=== PATIENT | male | born 1955 | race Caucasian/White ===

== ENCOUNTER 2021-03-10 22:03 | Inpatient (IN) | payer OTHER ==
[2021-03-10] MEDS ORDERED: PIPERACILLIN-TAZOBACTAM 3.375 GM in SODIUM CHLORIDE 0.9% 100 ML IVPB STA (22:34)
[2021-03-10] MEDS ORDERED: ACETAMINOPHEN TAB 325 MG TAB PO STA (22:34)
--- NOTE | 2021-03-10 22:37 | ED ---
Altered Mental Status HPI - General Chief Complaint: Altered Mental Status Stated Complaint: Confused Time Seen by Provider: 03/10/21 22:20 Source: patient Mode of arrival: ambulatory Limitations: no limitations, altered mental status - History of Present Illness Initial Comments: This patient is a 65-year-old man who arrives to be evaluated for suspected delirium. Most of the history comes from the patient's son as the patient believes she is delirious. Over the past couple of days he has had a change in urination reportedly urinating more frequently and having loss of continence. There may also been some low-grade fevers earlier. Today, patient's son arrived home from work and found the patient naked in the kitchen urinating there.. MD Complaint: altered mental status -: days(s) Severity: severe Consistency of Symptoms: getting worse Context: recent fever Associated Symptoms: fever/chills, incontinence - Related Data Home Medications Medication Instructions Recorded Confirmed Atorvastatin Calcium [Lipitor] 20 mg PO DAILY 03/11/21 03/11/21 Escitalopram [Lexapro] 20 mg PO DAILY 03/11/21 03/11/21 Furosemide [Lasix] 20 mg PO DAILY 03/11/21 03/11/21 Insulin Glargine,Hum.rec.anlog 50 unit SQ HS 03/11/21 03/11/21 [Lantus Solostar Pen] Insulin Lispro [humaLOG Kwikpen] 20 unit SQ AC-TID 03/11/21 03/11/21 Tamsulosin HCl [Flomax] 0.8 mg PO DAILY 03/11/21 03/11/21 amLODIPine BESYLATE/BENAZEPRIL 1 cap PO DAILY 03/11/21 03/11/21 [Lotrel 10-40 MG] buPROPion HCL [Wellbutrin SR] 150 mg PO BID 03/11/21 03/11/21 metFORMIN HCL [Glucophage] 1,000 mg PO AC-BID 03/11/21 03/11/21 Previous Rx's Medication Instructions Recorded hydrALAZINE HCL [Apresoline] 25 mg PO BID #60 tab 03/14/21 Ciprofloxacin HCl 500 mg PO BID 7 Days #14 tab 03/19/21 Potassium Chloride [Klor-Con 20] 20 meq PO DAILY #30 tab 03/19/21 polyethylene glycoL 3350 [Miralax] 17 gm PO DAILY PRN #15 packet 03/19/21 Allergies Allergy/AdvReac Type Severity Reaction Status Date / Time No Known Allergies Allergy Verified 03/11/21 10:24 Review of Systems ROS Statement: Those systems with pertinent positive or pertinent negative responses have been documented in the HPI. ROS Other: All systems not noted in ROS Statement are negative. Limitations: ROS unobtainable due to patients medical condition Constitutional: Reports: fever. Denies: chills Respiratory: Reports: cough, dyspnea Cardiovascular: Denies: chest pain, syncope Gastrointestinal: Denies: abdominal pain, vomiting, diarrhea Genitourinary: Reports: other Musculoskeletal: Denies: back pain Neurological: Denies: headache Past Medical History Past Medical History: Diabetes Mellitus, Hypertension History of Any Multi-Drug Resistant Organisms: None Reported Additional Past Surgical History / Comment(s): hernia Past Psychological History: No Psychological Hx Reported Smoking Status: Current every day smoker Past Alcohol Use History: None Reported Past Drug Use History: None Reported General Exam Limitations: no limitations General appearance: alert, in no apparent distress Head exam: Present: atraumatic, normocephalic Eye exam: Present: normal appearance ENT exam: Present: mucous membranes dry Neck exam: Present: normal inspection, full ROM. Absent: tenderness, meningismus Respiratory exam: Present: rhonchi. Absent: respiratory distress, wheezes, rales, stridor Cardiovascular Exam: Present: normal rhythm, tachycardia, normal heart sounds. Absent: systolic murmur, diastolic murmur, rubs, gallop GI/Abdominal exam: Present: soft. Absent: distended, tenderness, guarding, rebound, rigid, mass Extremities exam: Present: normal inspection, normal capillary refill. Absent: pedal edema, calf tenderness Back exam: Present: normal inspection. Absent: CVA tenderness (R), CVA tenderness (L) Neurological exam: Present: alert Skin exam: Present: warm, dry, intact, normal color. Absent: rash Course Vital Signs 03/10/21 03/10/21 03/10/21 22:04 23:17 23:22 Temperature 101.0 F H Pulse Rate 122 H 111 H 112 H Pulse Rate [ Left] Respiratory 20 20 18 Rate Blood Pressure 163/95 163/93 163/93 Blood Pressure [Right Arm] O2 Sat by Pulse 93 L 92 L Oximetry 03/11/21 03/11/21 03/11/21 00:30 02:00 03:00 Temperature 100.7 F H 98.6 F Pulse Rate 108 H 112 H 109 H Pulse Rate [ Left] Respiratory 18 18 Rate Blood Pressure 131/77 138/75 Blood Pressure [Right Arm] O2 Sat by Pulse 93 L 91 L Oximetry 03/11/21 03/11/21 03/11/21 05:43 07:19 08:39 Temperature 98.7 F 99.5 F 98.9 F Pulse Rate 121 H 117 H 110 H Pulse Rate [ Left] Respiratory 20 24 24 Rate Blood Pressure 140/79 181/98 123/71 Blood Pressure [Right Arm] O2 Sat by Pulse 91 L 95 Oximetry 03/11/21 03/11/21 03/11/21 14:48 17:00 18:01 Temperature 98.4 F 101.4 F H Pulse Rate 104 H 104 H Pulse Rate [ Left] Respiratory 18 18 Rate Blood Pressure 123/71 144/94 Blood Pressure [Right Arm] O2 Sat by Pulse 92 L 94 L Oximetry 03/11/21 03/11/21 03/11/21 18:55 19:11 21:44 Temperature 99.3 F 98.3 F Pulse Rate 98 93 98 Pulse Rate [ Left] Respiratory 18 18 18 Rate Blood Pressure 129/77 141/85 Blood Pressure [Right Arm] O2 Sat by Pulse 95 93 L 93 L Oximetry 03/11/21 03/12/21 03/12/21 23:00 06:43 08:00 Temperature 98.8 F Pulse Rate 96 94 Pulse Rate [ 91 Left] Respiratory 18 18 16 Rate Blood Pressure 167/94 137/73 Blood Pressure 134/79 [Right Arm] O2 Sat by Pulse 95 92 L 93 L Oximetry 03/12/21 13:07 Temperature 98.0 F Pulse Rate Pulse Rate [ Left] Respiratory 16 Rate Blood Pressure Blood Pressure 147/77 [Right Arm] O2 Sat by Pulse 95 Oximetry Procedures - Sepsis Sepsis Focused Exam #1 Sepsis Focused Exam Complete: Yes Vital Signs & RN Notes Reviewed: Yes Capillary Refill: < 2 Seconds: Fingers Peripheral Pulses: Strong: Radial (R) Skin Color: Normal for Patient Respiratory Exam: normal lung sounds Cardiovascular Exam: regular rate, normal rhythm, normal heart sounds Medical Decision Making - Lab Data Result diagrams: 03/19/21 09:22 03/19/21 13:19 Lab Results 03/10/21 03/10/21 03/10/21 Range/Units 23:16 23:16 23:16 WBC 20.6 H (3.8-10.6) k/uL RBC 5.54 (4.30-5.90) m/uL Hgb 16.2 (13.0-17.5) gm/dL Hct 48.2 (39.0-53.0) % MCV 87.0 (80.0-100.0) fL MCH 29.3 (25.0-35.0) pg MCHC 33.7 (31.0-37.0) g/dL RDW 13.7 (11.5-15.5) % Plt Count 160 (150-450) k/uL MPV 8.3 Neutrophils % 89 % Lymphocytes % 3 % Monocytes % 6 % Eosinophils % 0 % Basophils % 0 % Neutrophils # 18.4 H (1.3-7.7) k/uL Lymphocytes # 0.7 L (1.0-4.8) k/uL Monocytes # 1.3 H (0-1.0) k/uL Eosinophils # 0.1 (0-0.7) k/uL Basophils # 0.1 (0-0.2) k/uL PT 11.5 (9.0-12.0) sec INR 1.1 (<1.2) APTT 25.8 (22.0-30.0) sec Sodium 134 L (137-145) mmol/L Potassium 3.6 (3.5-5.1) mmol/L Chloride 99 (98-107) mmol/L Carbon Dioxide 20 L (22-30) mmol/L Anion Gap 15 mmol/L BUN 14 (9-20) mg/dL Creatinine 0.92 (0.66-1.25) mg/dL Est GFR (CKD-EPI)AfAm >90 (>60 ml/min/1.73 sqM) Est GFR (CKD-EPI)NonAf 88 (>60 ml/min/1.73 sqM) Glucose 295 H (74-99) mg/dL Lactic Ac Sepsis Rflx Plasma Lactic Acid [place] (0.7-2.0) mmol/L Calcium 9.8 (8.4-10.2) mg/dL Total Bilirubin 1.4 H (0.2-1.3) mg/dL AST 22 (17-59) U/L ALT 19 (4-49) U/L Alkaline Phosphatase 81 (38-126) U/L Troponin I (0.000-0.034) ng/mL Total Protein 6.9 (6.3-8.2) g/dL Albumin 4.2 (3.5-5.0) g/dL Urine Color Urine Appearance (Clear) Urine pH (5.0-8.0) Ur Specific [place] (1.001-1.035) Urine Protein (Negative) Urine Glucose (UA) (Negative) Urine Ketones (Negative) Urine Blood (Negative) Urine Nitrite (Negative) Urine Bilirubin (Negative) Urine Urobilinogen (<2.0) mg/dL Ur Leukocyte Esterase (Negative) Urine RBC (0-5) /hpf Urine WBC (0-5) /hpf Amorphous Sediment (None) /hpf Urine Bacteria (None) /hpf Urine Mucus (None) /hpf 03/10/21 03/10/21 03/11/21 Range/Units 23:16 23:18 00:00 WBC (3.8-10.6) k/uL RBC (4.30-5.90) m/uL Hgb (13.0-17.5) gm/dL Hct (39.0-53.0) % MCV (80.0-100.0) fL MCH (25.0-35.0) pg MCHC (31.0-37.0) g/dL RDW (11.5-15.5) % Plt Count (150-450) k/uL MPV Neutrophils % % Lymphocytes % % Monocytes % % Eosinophils % % Basophils % % Neutrophils # (1.3-7.7) k/uL Lymphocytes # (1.0-4.8) k/uL Monocytes # (0-1.0) k/uL Eosinophils # (0-0.7) k/uL Basophils # (0-0.2) k/uL PT (9.0-12.0) sec INR (<1.2) APTT (22.0-30.0) sec Sodium (137-145) mmol/L Potassium (3.5-5.1) mmol/L Chloride (98-107) mmol/L Carbon Dioxide (22-30) mmol/L Anion Gap mmol/L BUN (9-20) mg/dL Creatinine (0.66-1.25) mg/dL Est GFR (CKD-EPI)AfAm (>60 ml/min/1.73 sqM) Est GFR (CKD-EPI)NonAf (>60 ml/min/1.73 sqM) Glucose (74-99) mg/dL Lactic Ac Sepsis Rflx Y Plasma Lactic Acid [place] 2.6 H* (0.7-2.0) mmol/L Calcium (8.4-10.2) mg/dL Total Bilirubin (0.2-1.3) mg/dL AST (17-59) U/L ALT (4-49) U/L Alkaline Phosphatase (38-126) U/L Troponin I <0.012 (0.000-0.034) ng/mL Total Protein (6.3-8.2) g/dL Albumin (3.5-5.0) g/dL Urine Color Urine Appearance (Clear) Urine pH (5.0-8.0) Ur Specific [place] (1.001-1.035) Urine Protein (Negative) Urine Glucose (UA) (Negative) Urine Ketones (Negative) Urine Blood (Negative) Urine Nitrite (Negative) Urine Bilirubin (Negative) Urine Urobilinogen (<2.0) mg/dL Ur Leukocyte Esterase (Negative) Urine RBC (0-5) /hpf Urine WBC (0-5) /hpf Amorphous Sediment (None) /hpf Urine Bacteria (None) /hpf Urine Mucus (None) /hpf 03/11/21 03/11/21 03/11/21 Range/Units 00:58 02:14 02:14 WBC (3.8-10.6) k/uL RBC (4.30-5.90) m/uL Hgb (13.0-17.5) gm/dL Hct (39.0-53.0) % MCV (80.0-100.0) fL MCH (25.0-35.0) pg MCHC (31.0-37.0) g/dL RDW (11.5-15.5) % Plt Count (150-450) k/uL MPV Neutrophils % % Lymphocytes % % Monocytes % % Eosinophils % % Basophils % % Neutrophils # (1.3-7.7) k/uL Lymphocytes # (1.0-4.8) k/uL Monocytes # (0-1.0) k/uL Eosinophils # (0-0.7) k/uL Basophils # (0-0.2) k/uL PT (9.0-12.0) sec INR (<1.2) APTT (22.0-30.0) sec Sodium (137-145) mmol/L Potassium (3.5-5.1) mmol/L Chloride (98-107) mmol/L Carbon Dioxide (22-30) mmol/L Anion Gap mmol/L BUN (9-20) mg/dL Creatinine (0.66-1.25) mg/dL Est GFR (CKD-EPI)AfAm (>60 ml/min/1.73 sqM) Est GFR (CKD-EPI)NonAf (>60 ml/min/1.73 sqM) Glucose (74-99) mg/dL Lactic Ac Sepsis Rflx Plasma Lactic Acid [place] 1.7 (0.7-2.0) mmol/L Calcium (8.4-10.2) mg/dL Total Bilirubin (0.2-1.3) mg/dL AST (17-59) U/L ALT (4-49) U/L Alkaline Phosphatase (38-126) U/L Troponin I <0.012 (0.000-0.034) ng/mL Total Protein (6.3-8.2) g/dL Albumin (3.5-5.0) g/dL Urine Color Yellow Urine Appearance Clear (Clear) Urine pH 5.5 (5.0-8.0) Ur Specific [place] 1.037 H (1.001-1.035) Urine Protein 2+ H (Negative) Urine Glucose (UA) 4+ H (Negative) Urine Ketones 2+ H (Negative) Urine Blood Moderate H (Negative) Urine Nitrite Positive (Negative) Urine Bilirubin Negative (Negative) Urine Urobilinogen <2.0 (<2.0) mg/dL Ur Leukocyte Esterase Trace H (Negative) Urine RBC 3 (0-5) /hpf Urine WBC 14 H (0-5) /hpf Amorphous Sediment Rare H (None) /hpf Urine Bacteria Rare H (None) /hpf Urine Mucus Rare H (None) /hpf Disposition Clinical Impression: UTI (urinary tract infection), Delirium due to another medical condition Disposition: ADMITTED IP TO THIS HOSP Condition: Serious Is patient prescribed a controlled substance at d/c from ED?: No
[2021-03-10] MEDS: SODIUM CHLORIDE 0.9% 1,000 ML IV SCH (23:13)
[2021-03-10] MEDS: SODIUM CHLORIDE 0.9% 500 ML 500 ML IV SCH ×2 (23:13→23:14)
[2021-03-10 23:40] LABS: Basophils # (A) 0.1 k/uL (0-0.2); Basophils % (A) 0 %; Eosinophils # (A) 0.1 k/uL (0-0.7); Eosinophils % (A) 0 %; HCT 48.2 % (39.0-53.0); HGB 16.2 gm/dL (13.0-17.5); Lymphocytes # (A) 0.7 k/uL (1.0-4.8); Lymphocytes % (A) 3 %; MCH 29.3 pg (25.0-35.0); MCHC 33.7 g/dL (31.0-37.0); Mean Platelet Volume 8.3; Monocytes # (A) 1.3 k/uL (0-1.0); Monocytes % (A) 6 %; Neutrophils # (A) 18.4 k/uL (1.3-7.7); Neutrophils % (A) 89 %; Platelet Count 160 k/uL (150-450); RBC 5.54 m/uL (4.30-5.90); RDW 13.7 % (11.5-15.5); WBC 20.6 k/uL (3.8-10.6)
[2021-03-10 23:49] LABS: Chloride 99 mmol/L (98-107)
[2021-03-10 23:52] LABS: ALT 19 U/L (4-49); AST 22 U/L (17-59); African American GFR (CKD) >90 (>60 ml/min/1.73 sqM); Albumin 4.2 g/dL (3.5-5.0); Alkaline Phosphatase 81 U/L (38-126); Anion Gap 15 mmol/L; Blood Urea Nitrogen 14 mg/dL (9-20); Calcium 9.8 mg/dL (8.4-10.2); Carbon Dioxide 20 mmol/L (22-30); Glucose 295 mg/dL (74-99); Non-African American GFR(CKD) 88 (>60 ml/min/1.73 sqM); Potassium 3.6 mmol/L (3.5-5.1); Sodium 134 mmol/L (137-145); Total Bilirubin 1.4 mg/dL (0.2-1.3); Total Protein 6.9 g/dL (6.3-8.2)
[2021-03-11 00:09] LABS: INR 1.1 (<1.2); Partial Thromboplastin Time 25.8 sec (22.0-30.0); Prothrombin Time 11.5 sec (9.0-12.0)
--- NOTE | 2021-03-11 00:26 | CT ---
EXAMINATION TYPE: CT brain wo con DATE OF EXAM: 03/10/2021 COMPARISON: None HISTORY: AMS CT DLP: 1221.4 mGycm Automated exposure control for dose reduction was used. There is mild cerebral atrophy. There is no mass effect nor midline shift. There is no sign of intrac ranial hemorrhage. Calvarium is intact. There is some hypodensity in the periventricular white matter . IMPRESSION: Cerebral atrophy. Chronic white matter changes. No acute abnormality.
--- NOTE | 2021-03-11 00:30 | XR ---
EXAMINATION TYPE: XR chest 1V portable DATE OF EXAM: 03/10/2021 COMPARISON: NONE HISTORY: Altered mental status. Fever. TECHNIQUE: Single view FINDINGS: Heart and mediastinum are normal. Lungs are clear. Diaphragm is normal. Bony thorax appears normal. There are chest leads. IMPRESSION: Normal chest.
[2021-03-11 02:09] LABS: Amorphous Sediment,Urine Rare /hpf; Appearance,Urine Clear (Clear); Bacteria,Urine Rare /hpf; Bilirubin,Urine Negative (Negative); Blood,Urine Moderate (Negative); Color,Urine Yellow; Glucose,Urine (UA) 4+ (Negative); Leukocyte Esterase,Urine Trace (Negative); Mucus,Urine Rare /hpf; Nitrite,Urine Positive (Negative); PH, Urine 5.5 (5.0-8.0); Protein,Urine 2+ (Negative); RBC,Urine 3 /hpf (0-5); Specific Gravity,Urine 1.037 (1.001-1.035); Urobilinogen,Urine <2.0 mg/dL (<2.0); WBC,Urine 14 /hpf (0-5)
[2021-03-11 02:22] LABS: Ketones,Urine 2+ (Negative)
[2021-03-11 07:25] LABS: Glucose,Whole Blood 223 mg/dL (75-99)
[2021-03-11] MEDS: FAMOTIDINE 20 MG/2 ML VIAL IV SCH ×2 (07:55→21:54)
[2021-03-11] MEDS: ACETAMINOPHEN TAB 325 MG TAB PO PRN ×2 (07:55→17:53)
[2021-03-11] MEDS: PIPERACILLIN-TAZOBACTAM 3.375 GM in SODIUM CHLORIDE 0.9% 100 ML IVPB SCH ×3 (07:55→21:56)
--- NOTE | 2021-03-11 17:42 | P.HPIM ---
History of Present Illness H&P Date: 03/11/21 Chief Complaint: Altered mental status 65-year-old man, history of diabetes mellitus/hypertension, who arrives to be evaluated for suspected delirium. Most of the history comes from the patient's son as the patient believes he is delirious. Over the past couple of days he has had a change in urination reportedly urinating more frequently and having loss of continence. There may also been some low-grade fevers earlier. Today, patient's son arrived home from work and found the patient naked in the kitchen urinating there.. Workup in ED with a UA reveals positive nitrates, leukocyte esterase with WBCs and bacteria, lactic acid of 2.6, total bilirubin of 1.4, glucose 95, BUN/creatinine of 14/0.9; WBC is elevated at 20.6, hemoglobin 16.2 and hematocrit 48.2 with platelet count of 160 CT of the brain revealed cerebral atrophy with chronic white matter changes, no acute abnormality; chest x-ray reveals no acute process Review of Systems REVIEW OF SYSTEMS: CONSTITUTIONAL: No fever, no malaise, no fatigue. HEENT: No recent visual problems or hearing problems. Denied any sore throat. CARDIOVASCULAR: No chest pain, orthopnea, PND, no palpitations, no syncope. PULMONARY: No shortness of breath, no cough, no hemoptysis. GASTROINTESTINAL: No diarrhea, no nausea, no vomiting, no abdominal pain. NEUROLOGICAL: No headaches, no weakness, no numbness. HEMATOLOGICAL: Denies any bleeding or petechiae. GENITOURINARY: Denies any burning micturition, frequency, or urgency. MUSCULOSKELETAL/RHEUMATOLOGICAL: Denies any joint pain, swelling, or any muscle pain. ENDOCRINE: Denies any polyuria or polydipsia. The rest of the 14-point review of systems is negative. Past Medical History Past Medical History: Diabetes Mellitus, Hypertension History of Any Multi-Drug Resistant Organisms: None Reported Additional Past Surgical History / Comment(s): hernia Past Psychological History: No Psychological Hx Reported Smoking Status: Current every day smoker Past Alcohol Use History: None Reported Past Drug Use History: None Reported Medications and Allergies Home Medications Medication Instructions Recorded Confirmed Type Atorvastatin Calcium [Lipitor] 20 mg PO DAILY 03/11/21 03/11/21 History Escitalopram [Lexapro] 20 mg PO DAILY 03/11/21 03/11/21 History Furosemide [Lasix] 20 mg PO DAILY 03/11/21 03/11/21 History Insulin Glargine,Hum.rec.anlog 50 unit SQ HS 03/11/21 03/11/21 History [Lantus Solostar Pen] Insulin Lispro [humaLOG Kwikpen] 20 unit SQ AC-TID 03/11/21 03/11/21 History Tamsulosin HCl [Flomax] 0.8 mg PO DAILY 03/11/21 03/11/21 History amLODIPine BESYLATE/BENAZEPRIL 1 cap PO DAILY 03/11/21 03/11/21 History [Lotrel 10-40 MG] buPROPion HCL [Wellbutrin SR] 150 mg PO BID 03/11/21 03/11/21 History hydroCHLOROthiazide [Hydrodiuril] 25 mg PO DAILY 03/11/21 03/11/21 History metFORMIN HCL [Glucophage] 1,000 mg PO AC-BID 03/11/21 03/11/21 History Allergies Allergy/AdvReac Type Severity Reaction Status Date / Time No Known Allergies Allergy Verified 03/11/21 10:24 Physical Exam Vitals: Vital Signs Temp Pulse Resp BP Pulse Ox 03/11/21 08:39 98.9 F 110 H 24 123/71 95 03/11/21 07:19 99.5 F 117 H 24 181/98 91 L 03/11/21 05:43 98.7 F 121 H 20 140/79 03/11/21 03:00 98.6 F 109 H 18 138/75 91 L 03/11/21 02:00 112 H 18 03/11/21 00:30 100.7 F H 108 H 131/77 93 L 03/10/21 23:22 112 H 18 163/93 92 L 03/10/21 23:17 111 H 20 163/93 03/10/21 22:04 101.0 F H 122 H 20 163/95 93 L Intake and Output 03/10/21 03/11/21 03/11/21 22:59 06:59 14:59 Output Total 700 Balance -700 Output: Urine 700 Straight 700 Other: Weight 140.614 kg PHYSICAL EXAMINATION: GENERAL: The patient is alert and oriented x3, not in any acute distress. Well developed, well nourished. HEENT: Pupils are round and equally reacting to light. EOMI. No scleral icterus. No conjunctival pallor. Normocephalic, atraumatic. No pharyngeal erythema. No thyromegaly. CARDIOVASCULAR: S1 and S2 present. No murmurs, rubs, or gallops. PULMONARY: Chest is clear to auscultation, no wheezing or crackles. ABDOMEN: Soft, nontender, nondistended, normoactive bowel sounds. No palpable organomegaly. MUSCULOSKELETAL: No joint swelling or deformity. EXTREMITIES: No cyanosis, clubbing, or pedal edema. NEUROLOGICAL: Gross neurological examination did not reveal any focal deficits. SKIN: No rashes. Results CBC & Chem 7: 03/10/21 23:16 03/10/21 23:16 Labs: Abnormal Lab Results - Last 24 Hours (Table) 03/10/21 03/10/21 03/10/21 Range/Units 23:16 23:16 23:16 WBC 20.6 H (3.8-10.6) k/uL Neutrophils # 18.4 H (1.3-7.7) k/uL Lymphocytes # 0.7 L (1.0-4.8) k/uL Monocytes # 1.3 H (0-1.0) k/uL Sodium 134 L (137-145) mmol/L Carbon Dioxide 20 L (22-30) mmol/L Glucose 295 H (74-99) mg/dL POC Glucose (mg/dL) (75-99) mg/dL Plasma Lactic Acid [place] 2.6 H* (0.7-2.0) mmol/L Total Bilirubin 1.4 H (0.2-1.3) mg/dL Ur Specific [place] (1.001-1.035) Urine Protein (Negative) Urine Glucose (UA) (Negative) Urine Ketones (Negative) Urine Blood (Negative) Ur Leukocyte Esterase (Negative) Urine WBC (0-5) /hpf Amorphous Sediment (None) /hpf Urine Bacteria (None) /hpf Urine Mucus (None) /hpf 03/11/21 03/11/21 Range/Units 00:58 07:23 WBC (3.8-10.6) k/uL Neutrophils # (1.3-7.7) k/uL Lymphocytes # (1.0-4.8) k/uL Monocytes # (0-1.0) k/uL Sodium (137-145) mmol/L Carbon Dioxide (22-30) mmol/L Glucose (74-99) mg/dL POC Glucose (mg/dL) 223 H (75-99) mg/dL Plasma Lactic Acid [place] (0.7-2.0) mmol/L Total Bilirubin (0.2-1.3) mg/dL Ur Specific [place] 1.037 H (1.001-1.035) Urine Protein 2+ H (Negative) Urine Glucose (UA) 4+ H (Negative) Urine Ketones 2+ H (Negative) Urine Blood Moderate H (Negative) Ur Leukocyte Esterase Trace H (Negative) Urine WBC 14 H (0-5) /hpf Amorphous Sediment Rare H (None) /hpf Urine Bacteria Rare H (None) /hpf Urine Mucus Rare H (None) /hpf Assessment and Plan Assessment: 1. Leukocytosis/sepsis - As indicated by elevated WBC, lactic acid level, tachycardia and tachypnea, altered mental status - Patient has been placed on IV Zosyn 3.375 g IV every 8 hours; blood cultures and urine cultures obtained and pending - We will monitor CBC, CRP and pro-calcitonin; consult ID for further recommendations 2. Altered mental status/toxic metabolic encephalopathy - Lactic acidosis/sepsis/UTI; patient has been placed on IV fluids we will trend and monitor lactic acid levels; Continue with further sepsis workup if lactic acid levels continue to trend up; Consult ID if no improvement with current treatment 3. Hypertension; continue home dose of Lotrel then40 mg daily, Hydrea Diuril 25 mg daily, Lasix 20 mg daily 4. Diabetes mellitus type 1; continue with Lantus 50 units subcu daily at bedtime, NovoLog 20 units every before meals 3 times a day; hold off of metformin while inpatient 5. Hyperlipidemia; Lipitor 20 mg by mouth daily at bedtime 6. BPH; Flomax 0.8 mg daily 7. Depression; continue with Wellbutrin and Lexapro DVT prophylaxis; SCDs/subcu heparin CODE STATUS; full code
[2021-03-11] MEDS: SODIUM CHLORIDE 0.9% 1,000 ML IV SCH ×3 (19:12→21:57)
[2021-03-11 21:55] LABS: Glucose,Whole Blood 270 mg/dL (75-99)
[2021-03-11] MEDS: INSULIN DETEMIR (LEVEMIR) 100 UNIT/ML SYR SQ SCH (21:57)
[2021-03-11] MEDS: buPROPion SR 150 MG TABLET.ER PO SCH (21:59)
[2021-03-12 04:53] LABS: Basophils % (A) 0 %; Eosinophils % (A) 0 %; HCT 45.4 % (39.0-53.0); Lymphocytes # (A) 0.8 k/uL (1.0-4.8); Lymphocytes % (A) 6 %; MCH 29.2 pg (25.0-35.0); MCHC 33.1 g/dL (31.0-37.0); MCV 88.1 fL (80.0-100.0); Mean Platelet Volume 8.7; Monocytes # (A) 0.9 k/uL (0-1.0); Monocytes % (A) 7 %; Neutrophils # (A) 10.9 k/uL (1.3-7.7); Neutrophils % (A) 85 %; Platelet Count 130 k/uL (150-450); RBC 5.15 m/uL (4.30-5.90); RDW 13.8 % (11.5-15.5); WBC 12.8 k/uL (3.8-10.6)
[2021-03-12] MEDS: SODIUM CHLORIDE 0.9% 1,000 ML IV SCH ×3 (08:05→23:31)
[2021-03-12 08:16] LABS: Glucose,Whole Blood 172 mg/dL (75-99)
[2021-03-12] MEDS: INSULIN ASPART (NovoLOG) 100 UNIT/ML VIAL SQ SCH ×3 (08:34→18:45)
[2021-03-12] MEDS: PIPERACILLIN-TAZOBACTAM 3.375 GM in SODIUM CHLORIDE 0.9% 100 ML IVPB SCH ×2 (08:34→17:34)
[2021-03-12] MEDS: FUROSEMIDE 20 MG TAB PO SCH (08:35)
[2021-03-12] MEDS: TAMSULOSIN 0.4 MG CAP.ER.24H PO SCH (08:35)
[2021-03-12] MEDS: ESCITALOPRAM 20 MG TAB PO SCH (08:35)
[2021-03-12] MEDS: amLODIPine 10 MG TAB PO SCH (08:35)
[2021-03-12] MEDS: lisinopriL 20 MG TAB PO SCH (08:35)
[2021-03-12] MEDS: ATORVASTATIN 20 MG TAB PO SCH (08:35)
[2021-03-12] MEDS: hydroCHLOROthiazide 25 MG TAB PO SCH (08:36)
[2021-03-12] MEDS: FAMOTIDINE 20 MG/2 ML VIAL IV SCH (08:36)
[2021-03-12 09:40] LABS: African American GFR (CKD) 109.4 (60.0-200.0); Anion Gap 15.4 mmol/L (4.00-12.00); BUN/Creat Ratio 17.75 Ratio (12.00-20.00); Blood Urea Nitrogen 14.2 mg/dL (9.0-27.0); Calcium 8.8 mg/dL (8.7-10.3); Carbon Dioxide 20.6 mmol/L (21.6-31.8); Non-African American GFR(CKD) 94.4 (60.0-200.0); Potassium 3.4 mmol/L (3.5-5.5)
[2021-03-12] MEDS: buPROPion SR 150 MG TABLET.ER PO SCH ×2 (10:40→20:58)
[2021-03-12 12:14] LABS: Glucose,Whole Blood 146 mg/dL (75-99)
[2021-03-12 14:47] LABS: C Reactive Protein 24.3 mg/dL (0.00-0.80)
--- NOTE | 2021-03-12 17:13 | P.PN ---
Subjective Progress Note Date: 03/12/21 Principal diagnosis: Leukocytosis/sepsis Altered mental status/toxic metabolic encephalopathy 65-year-old man, history of diabetes mellitus/hypertension, who arrives to be evaluated for suspected delirium. Most of the history comes from the patient's son as the patient believes he is delirious. Over the past couple of days he has had a change in urination reportedly urinating more frequently and having loss of continence. There may also been some low-grade fevers earlier. Today, patient's son arrived home from work and found the patient naked in the kitchen urinating there.. Workup in ED with a UA reveals positive nitrates, leukocyte esterase with WBCs and bacteria, lactic acid of 2.6, total bilirubin of 1.4, glucose 95, BUN/creatinine of 14/0.9; WBC is elevated at 20.6, hemoglobin 16.2 and hematocrit 48.2 with platelet count of 160 CT of the brain revealed cerebral atrophy with chronic white matter changes, no acute abnormality; chest x-ray reveals no acute process Objective - Vital Signs Vital signs: Vital Signs Temp 98.0 F 03/12/21 13:07 Pulse 91 03/12/21 08:00 Resp 16 03/12/21 13:07 BP 147/77 03/12/21 13:07 Pulse Ox 95 03/12/21 13:07 - Exam GENERAL: The patient is alert and oriented x3, not in any acute distress. Well developed, well nourished. HEENT: Pupils are round and equally reacting to light. EOMI. No scleral icterus. No conjunctival pallor. Normocephalic, atraumatic. No pharyngeal erythema. No thyromegaly. CARDIOVASCULAR: S1 and S2 present. No murmurs, rubs, or gallops. PULMONARY: Chest is clear to auscultation, no wheezing or crackles. ABDOMEN: Soft, nontender, nondistended, normoactive bowel sounds. No palpable organomegaly. MUSCULOSKELETAL: No joint swelling or deformity. EXTREMITIES: No cyanosis, clubbing, or pedal edema. NEUROLOGICAL: Gross neurological examination did not reveal any focal deficits. SKIN: No rashes. - Labs CBC & Chem 7: 03/12/21 04:23 03/12/21 04:23 Labs: Abnormal Lab Results - Last 24 Hours (Table) 03/11/21 03/12/2121 Range/Units 21:54 04:23 04:23 WBC 12.8 H (3.8-10.6) k/uL Plt Count 130 L (150-450) k/uL Neutrophils # 10.9 H (1.3-7.7) k/uL Lymphocytes # 0.8 L (1.0-4.8) k/uL Potassium (3.5-5.5) mmol/L Carbon Dioxide (21.6-31.8) mmol/L Anion Gap (4.00-12.00) mmol/L Glucose (70-110) mg/dL POC Glucose (mg/dL) 270 H (75-99) mg/dL Procalcitonin 0.51 H (0.02-0.09) ng/mL 03/12/21 03/12/21 03/12/21 Range/Units 04:23 08:14 12:13 WBC (3.8-10.6) k/uL Plt Count (150-450) k/uL Neutrophils # (1.3-7.7) k/uL Lymphocytes # (1.0-4.8) k/uL Potassium 3.4 L (3.5-5.5) mmol/L Carbon Dioxide 20.6 L (21.6-31.8) mmol/L Anion Gap 15.40 H (4.00-12.00) mmol/L Glucose 165 H (70-110) mg/dL POC Glucose (mg/dL) 172 H 146 H (75-99) mg/dL Procalcitonin (0.02-0.09) ng/mL Microbiology - Last 24 Hours (Table) 03/10/21 22:50 Blood Culture - Preliminary Blood No Growth after 24 hours 03/10/21 23:10 Blood Culture - Preliminary Blood No Growth after 24 hours 03/11/21 00:58 Urine Culture - Preliminary Urine,Voided Assessment and Plan Assessment: 1. Leukocytosis/sepsis - As indicated by elevated WBC, lactic acid level, tachycardia and tachypnea, altered mental status - Patient has been placed on IV Zosyn 3.375 g IV every 8 hours; blood cultures and urine cultures obtained and pending - We will monitor CBC, CRP and pro-calcitonin; consult ID for further recommendations 2. Altered mental status/toxic metabolic encephalopathy - Lactic acidosis/sepsis/UTI; patient has been placed on IV fluids we will trend and monitor lactic acid levels; Continue with further sepsis workup if lactic acid levels continue to trend up; Consult ID if no improvement with current treatment 3. Hypertension; continue home dose of Lotrel then40 mg daily, Hydrea Diuril 25 mg daily, Lasix 20 mg daily 4. Diabetes mellitus type 1; continue with Lantus 50 units subcu daily at bedtime, NovoLog 20 units every before meals 3 times a day; hold off of metformin while inpatient 5. Hyperlipidemia; Lipitor 20 mg by mouth daily at bedtime 6. BPH; Flomax 0.8 mg daily 7. Depression; continue with Wellbutrin and Lexapro DVT prophylaxis; SCDs/subcu heparin CODE STATUS; full code
[2021-03-12 20:48] LABS: Glucose,Whole Blood 257 mg/dL (75-99)
[2021-03-12] MEDS: ACETAMINOPHEN TAB 325 MG TAB PO PRN (20:57)
[2021-03-12] MEDS: INSULIN DETEMIR (LEVEMIR) 100 UNIT/ML SYR SQ SCH (20:58)
[2021-03-12] MEDS: FAMOTIDINE 20 MG TAB PO SCH (20:58)
[2021-03-13] MEDS: PIPERACILLIN-TAZOBACTAM 3.375 GM in SODIUM CHLORIDE 0.9% 100 ML IVPB SCH ×3 (01:08→15:20)
[2021-03-13 05:06] LABS: Basophils % (A) 0 %; Eosinophils # (A) 0.1 k/uL (0-0.7); Eosinophils % (A) 1 %; HCT 42.1 % (39.0-53.0); Lymphocytes # (A) 0.9 k/uL (1.0-4.8); Lymphocytes % (A) 10 %; MCH 29.2 pg (25.0-35.0); MCHC 33.3 g/dL (31.0-37.0); MCV 87.7 fL (80.0-100.0); Mean Platelet Volume 8.5; Monocytes # (A) 0.9 k/uL (0-1.0); Monocytes % (A) 9 %; Neutrophils # (A) 7.2 k/uL (1.3-7.7); Neutrophils % (A) 76 %; Platelet Count 163 k/uL (150-450); RDW 13.8 % (11.5-15.5); WBC 9.5 k/uL (3.8-10.6)
[2021-03-13 05:35] LABS: African American GFR (CKD) >90 (>60 ml/min/1.73 sqM); Anion Gap 8 mmol/L; Blood Urea Nitrogen 16 mg/dL (9-20); Calcium 8.8 mg/dL (8.4-10.2); Carbon Dioxide 24 mmol/L (22-30); Chloride 105 mmol/L (98-107); Glucose 149 mg/dL (74-99); Non-African American GFR(CKD) >90 (>60 ml/min/1.73 sqM); Potassium 3.2 mmol/L (3.5-5.1); Sodium 137 mmol/L (137-145)
[2021-03-13 06:10] LABS: C Reactive Protein 16.4 mg/dL (<1.0)
[2021-03-13] MEDS: SODIUM CHLORIDE 0.9% 1,000 ML IV SCH ×3 (06:10→20:38)
[2021-03-13 07:14] LABS: Glucose,Whole Blood 135 mg/dL (75-99)
[2021-03-13] MEDS: INSULIN ASPART (NovoLOG) 100 UNIT/ML VIAL SQ SCH ×3 (08:20→17:01)
[2021-03-13] MEDS: amLODIPine 10 MG TAB PO SCH (08:20)
[2021-03-13] MEDS: buPROPion SR 150 MG TABLET.ER PO SCH ×2 (08:21→21:10)
[2021-03-13] MEDS: ATORVASTATIN 20 MG TAB PO SCH (08:21)
[2021-03-13] MEDS: TAMSULOSIN 0.4 MG CAP.ER.24H PO SCH (08:21)
[2021-03-13] MEDS: FAMOTIDINE 20 MG TAB PO SCH ×2 (08:21→21:10)
[2021-03-13] MEDS: FUROSEMIDE 20 MG TAB PO SCH (08:21)
[2021-03-13] MEDS: ESCITALOPRAM 20 MG TAB PO SCH (08:21)
[2021-03-13] MEDS: lisinopriL 20 MG TAB PO SCH (08:21)
[2021-03-13] MEDS: hydroCHLOROthiazide 25 MG TAB PO SCH (08:21)
[2021-03-13 11:59] LABS: Glucose,Whole Blood 89 mg/dL (75-99)
--- NOTE | 2021-03-13 16:37 | P.PN ---
Subjective Progress Note Date: 03/13/21 Principal diagnosis: Leukocytosis/sepsis Altered mental status/toxic metabolic encephalopathy 65-year-old man, history of diabetes mellitus/hypertension, who arrives to be evaluated for suspected delirium. Most of the history comes from the patient's son as the patient believes he is delirious. Over the past couple of days he has had a change in urination reportedly urinating more frequently and having loss of continence. There may also been some low-grade fevers earlier. Today, patient's son arrived home from work and found the patient naked in the kitchen urinating there.. Workup in ED with a UA reveals positive nitrates, leukocyte esterase with WBCs and bacteria, lactic acid of 2.6, total bilirubin of 1.4, glucose 95, BUN/creatinine of 14/0.9; WBC is elevated at 20.6, hemoglobin 16.2 and hematocrit 48.2 with platelet count of 160 CT of the brain revealed cerebral atrophy with chronic white matter changes, no acute abnormality; chest x-ray reveals no acute process 03/13/2021 Patient is seen and evaluated in room at bedside; resting in bed and somewhat sleepy With O2 saturation 92% on room air Lab review shows WBC 9.5 which has trended down to 20.6 upon admission, hematocrit of 42.1, sodium 137,, potassium 3.2 Urine culture reveals gram-negative bacilli and final culture and sensitivity report is still pending; we will continue with current antibiotic therapy and adjust antibiotics once final culture and sensitivity report is available Objective - Vital Signs Vital signs: Vital Signs Temp 97.9 F 03/13/21 08:17 Pulse 66 03/13/21 08:17 Resp 14 03/13/21 08:17 BP 150/83 03/13/21 08:17 Pulse Ox 99 03/13/21 08:17 Intake & Output 03/12/21 03/13/21 03/13/21 18:59 06:59 18:59 Output Total 1400 1350 Balance -1400 -1350 Output: Urine 1400 1350 Straight 1400 Uretheral (Espinoza) 1100 Other: Voiding Method Toilet Indwelling Catheter # Voids 1 - Exam GENERAL: The patient is alert and oriented x3, not in any acute distress. Well developed, well nourished. HEENT: Pupils are round and equally reacting to light. EOMI. No scleral icterus. No conjunctival pallor. Normocephalic, atraumatic. No pharyngeal erythema. No thyromegaly. CARDIOVASCULAR: S1 and S2 present. No murmurs, rubs, or gallops. PULMONARY: Chest is clear to auscultation, no wheezing or crackles. ABDOMEN: Soft, nontender, nondistended, normoactive bowel sounds. No palpable organomegaly. MUSCULOSKELETAL: No joint swelling or deformity. EXTREMITIES: No cyanosis, clubbing, or pedal edema. NEUROLOGICAL: Gross neurological examination did not reveal any focal deficits. SKIN: No rashes. - Labs CBC & Chem 7: 03/13/21 04:35 03/13/21 04:35 Labs: Abnormal Lab Results - Last 24 Hours (Table) 03/12/21 03/12/21 03/12/21 Range/Units 04:23 04:23 12:13 Lymphocytes # (1.0-4.8) k/uL Potassium (3.5-5.1) mmol/L Glucose (74-99) mg/dL POC Glucose (mg/dL) 146 H (75-99) mg/dL C-Reactive Protein 24.30 H (0.00-0.80) mg/dL Procalcitonin 0.51 H (0.02-0.09) ng/mL 03/12/21 03/13/21 03/13/21 Range/Units 20:46 04:35 04:35 Lymphocytes # 0.9 L (1.0-4.8) k/uL Potassium 3.2 L (3.5-5.1) mmol/L Glucose 149 H (74-99) mg/dL POC Glucose (mg/dL) 257 H (75-99) mg/dL C-Reactive Protein 16.4 H (0.00-0.80) mg/dL Procalcitonin (0.02-0.09) ng/mL 03/13/21 Range/Units 07:12 Lymphocytes # (1.0-4.8) k/uL Potassium (3.5-5.1) mmol/L Glucose (74-99) mg/dL POC Glucose (mg/dL) 135 H (75-99) mg/dL C-Reactive Protein (0.00-0.80) mg/dL Procalcitonin (0.02-0.09) ng/mL Microbiology - Last 24 Hours (Table) 03/10/21 22:50 Blood Culture - Preliminary Blood No Growth after 48 hours 03/10/21 23:10 Blood Culture - Preliminary Blood No Growth after 48 hours 03/11/21 00:58 Urine Culture - Preliminary Urine,Voided Gram Neg Bacilli Assessment and Plan Assessment: 1. Leukocytosis/sepsis - As indicated by elevated WBC, lactic acid level, tachycardia and tachypnea, altered mental status - Patient has been placed on IV Zosyn 3.375 g IV every 8 hours; blood cultures and urine cultures obtained and pending - We will monitor CBC, CRP and pro-calcitonin; consult ID for further recommendations 2. Altered mental status/toxic metabolic encephalopathy - Lactic acidosis/sepsis/UTI; patient has been placed on IV fluids we will trend and monitor lactic acid levels; Continue with further sepsis workup if lactic acid levels continue to trend up; Consult ID if no improvement with current treatment 3. Hypertension; continue home dose of Lotrel then40 mg daily, Hydrea Diuril 25 mg daily, Lasix 20 mg daily 4. Diabetes mellitus type 1; continue with Lantus 50 units subcu daily at bedtime, NovoLog 20 units every before meals 3 times a day; hold off of metformin while inpatient 5. Hyperlipidemia; Lipitor 20 mg by mouth daily at bedtime 6. BPH; Flomax 0.8 mg daily 7. Depression; continue with Wellbutrin and Lexapro DVT prophylaxis; SCDs/subcu heparin CODE STATUS; full code
[2021-03-13 16:57] LABS: Glucose,Whole Blood 232 mg/dL (75-99)
[2021-03-13] MEDS ORDERED: POTASSIUM CHLORIDE ER 20 MEQ TAB.ER PO STA (17:43)
[2021-03-13] MEDS ORDERED: Potassium Replacement Protocol 1 EACH MISC MISCELLANE PRN (17:44)
[2021-03-13 20:11] LABS: Glucose,Whole Blood 167 mg/dL (75-99)
[2021-03-13] MEDS: hydrALAZINE HCL 25 MG TAB PO SCH (21:10)
[2021-03-13] MEDS: INSULIN DETEMIR (LEVEMIR) 100 UNIT/ML SYR SQ SCH (21:10)
[2021-03-14] MEDS: PIPERACILLIN-TAZOBACTAM 3.375 GM in SODIUM CHLORIDE 0.9% 100 ML IVPB SCH ×4 (00:23→23:47)
[2021-03-14] MEDS: SODIUM CHLORIDE 0.9% 1,000 ML IV SCH ×3 (06:21→22:43)
[2021-03-14 06:57] LABS: Glucose,Whole Blood 146 mg/dL (75-99)
[2021-03-14] MEDS: lisinopriL 20 MG TAB PO SCH (07:54)
[2021-03-14] MEDS: INSULIN ASPART (NovoLOG) 100 UNIT/ML VIAL SQ SCH ×3 (07:54→17:25)
[2021-03-14] MEDS: FAMOTIDINE 20 MG TAB PO SCH ×2 (07:55→21:20)
[2021-03-14] MEDS: hydroCHLOROthiazide 25 MG TAB PO SCH (07:55)
[2021-03-14] MEDS: buPROPion SR 150 MG TABLET.ER PO SCH ×2 (07:55→21:20)
[2021-03-14] MEDS: ESCITALOPRAM 20 MG TAB PO SCH (07:55)
[2021-03-14] MEDS: hydrALAZINE HCL 25 MG TAB PO SCH ×2 (07:55→21:20)
[2021-03-14] MEDS: ATORVASTATIN 20 MG TAB PO SCH (07:55)
[2021-03-14] MEDS: amLODIPine 10 MG TAB PO SCH (07:55)
[2021-03-14] MEDS: FUROSEMIDE 20 MG TAB PO SCH (07:55)
[2021-03-14] MEDS: TAMSULOSIN 0.4 MG CAP.ER.24H PO SCH (07:55)
[2021-03-14 09:24] LABS: African American GFR (CKD) >90 (>60 ml/min/1.73 sqM); Anion Gap 6 mmol/L; Blood Urea Nitrogen 14 mg/dL (9-20); Calcium 8.4 mg/dL (8.4-10.2); Carbon Dioxide 27 mmol/L (22-30); Chloride 100 mmol/L (98-107); Glucose 275 mg/dL (74-99); Non-African American GFR(CKD) >90 (>60 ml/min/1.73 sqM); Sodium 133 mmol/L (137-145)
[2021-03-14 11:51] LABS: Glucose,Whole Blood 177 mg/dL (75-99)
[2021-03-14] MEDS: POTASSIUM CHLORIDE ER 20 MEQ TAB.ER PO SCH ×2 (11:56→15:43)
[2021-03-14] MEDS: ACETAMINOPHEN TAB 325 MG TAB PO PRN ×2 (11:57→23:47)
[2021-03-14 16:30] LABS: Glucose,Whole Blood 180 mg/dL (75-99)
[2021-03-14 21:15] LABS: Glucose,Whole Blood 204 mg/dL (75-99)
[2021-03-14] MEDS: INSULIN DETEMIR (LEVEMIR) 100 UNIT/ML SYR SQ SCH (21:21)
[2021-03-15 07:24] LABS: Glucose,Whole Blood 151 mg/dL (75-99)
[2021-03-15] MEDS: FUROSEMIDE 20 MG TAB PO SCH (07:27)
[2021-03-15] MEDS: FAMOTIDINE 20 MG TAB PO SCH ×2 (07:27→21:21)
[2021-03-15] MEDS: hydrALAZINE HCL 25 MG TAB PO SCH ×2 (07:28→21:21)
[2021-03-15] MEDS: hydroCHLOROthiazide 25 MG TAB PO SCH (07:28)
[2021-03-15] MEDS: ATORVASTATIN 20 MG TAB PO SCH (07:28)
[2021-03-15] MEDS: lisinopriL 20 MG TAB PO SCH (07:28)
[2021-03-15] MEDS: ESCITALOPRAM 20 MG TAB PO SCH (07:28)
[2021-03-15] MEDS: amLODIPine 10 MG TAB PO SCH (07:28)
[2021-03-15] MEDS: buPROPion SR 150 MG TABLET.ER PO SCH ×2 (07:29→22:12)
[2021-03-15] MEDS: ACETAMINOPHEN TAB 325 MG TAB PO PRN (07:29)
[2021-03-15] MEDS: TAMSULOSIN 0.4 MG CAP.ER.24H PO SCH (07:31)
[2021-03-15] MEDS: SODIUM CHLORIDE 0.9% 1,000 ML IV SCH ×3 (07:32→17:11)
[2021-03-15] MEDS: INSULIN ASPART (NovoLOG) 100 UNIT/ML VIAL SQ SCH ×3 (07:41→17:11)
[2021-03-15] MEDS: PIPERACILLIN-TAZOBACTAM 3.375 GM in SODIUM CHLORIDE 0.9% 100 ML IVPB SCH ×2 (08:10→16:23)
[2021-03-15 11:26] LABS: Glucose,Whole Blood 186 mg/dL (75-99)
--- NOTE | 2021-03-15 12:18 | P.PN ---
Subjective Progress Note Date: 03/14/21 Principal diagnosis: Leukocytosis/sepsis Altered mental status/toxic metabolic encephalopathy 65-year-old man, history of diabetes mellitus/hypertension, who arrives to be evaluated for suspected delirium. Most of the history comes from the patient's son as the patient believes he is delirious. Over the past couple of days he has had a change in urination reportedly urinating more frequently and having loss of continence. There may also been some low-grade fevers earlier. Today, patient's son arrived home from work and found the patient naked in the kitchen urinating there.. Workup in ED with a UA reveals positive nitrates, leukocyte esterase with WBCs and bacteria, lactic acid of 2.6, total bilirubin of 1.4, glucose 95, BUN/creatinine of 14/0.9; WBC is elevated at 20.6, hemoglobin 16.2 and hematocrit 48.2 with platelet count of 160 CT of the brain revealed cerebral atrophy with chronic white matter changes, no acute abnormality; chest x-ray reveals no acute process 03/13/2021 Patient is seen and evaluated in room at bedside; resting in bed and somewhat sleepy With O2 saturation 92% on room air Lab review shows WBC 9.5 which has trended down to 20.6 upon admission, hematocrit of 42.1, sodium 137,, potassium 3.2 Urine culture reveals gram-negative bacilli and final culture and sensitivity report is still pending; we will continue with current antibiotic therapy and adjust antibiotics once final culture and sensitivity report is available 03/14/2021 Patient seen and evaluated in room at bedside with daughter present in the room; patient is awake alert and oriented and denies any complaints Vital signs remained stable; labs are reviewed and are stable; urine culture and sensitivity completed; patient will be started transitioned to oral Bactrim to complete a total of 10 days of therapy and plan for outpatient follow-up; patient does have a Espinoza catheter which was placed due to urinary retention; we will DC Espinoza and monitor patient closely plans to consult urology if patient continues to have urinary retention versus discharge home and outpatient follow- up if no urinary concerns after discontinuing Espinoza Objective - Vital Signs Vital signs: Vital Signs Temp 97.9 F 03/14/21 19:35 Pulse 87 03/14/21 19:35 Resp 17 03/14/21 19:35 BP 152/87 03/14/21 19:35 Pulse Ox 95 03/14/21 19:35 Intake & Output 03/14/21 03/14/21 03/15/21 06:59 18:59 06:59 Intake Total 1000 Output Total 1500 2300 Balance -500 -2300 Intake: Oral 1000 Output: Urine 1500 2300 Uretheral (Espinoza) 1100 Other: Voiding Method Indwelling Catheter Indwelling Catheter # Voids 0 - Exam GENERAL: The patient is alert and oriented x3, not in any acute distress. Well developed, well nourished. HEENT: Pupils are round and equally reacting to light. EOMI. No scleral icterus. No conjunctival pallor. Normocephalic, atraumatic. No pharyngeal erythema. No thyromegaly. CARDIOVASCULAR: S1 and S2 present. No murmurs, rubs, or gallops. PULMONARY: Chest is clear to auscultation, no wheezing or crackles. ABDOMEN: Soft, nontender, nondistended, normoactive bowel sounds. No palpable organomegaly. MUSCULOSKELETAL: No joint swelling or deformity. EXTREMITIES: No cyanosis, clubbing, or pedal edema. NEUROLOGICAL: Gross neurological examination did not reveal any focal deficits. SKIN: No rashes. - Labs CBC & Chem 7: 03/13/21 04:35 03/14/21 08:24 Labs: Abnormal Lab Results - Last 24 Hours (Table) 03/14/21 03/14/21 03/14/21 Range/Units 06:56 08:24 11:49 Sodium 133 L (137-145) mmol/L Potassium 3.0 L (3.5-5.1) mmol/L Glucose 275 H (74-99) mg/dL POC Glucose (mg/dL) 146 H 177 H (75-99) mg/dL 03/14/21 03/14/21 Range/Units 16:25 21:13 Sodium (137-145) mmol/L Potassium (3.5-5.1) mmol/L Glucose (74-99) mg/dL POC Glucose (mg/dL) 180 H 204 H (75-99) mg/dL Microbiology - Last 24 Hours (Table) 03/10/21 22:50 Blood Culture - Preliminary Blood No Growth after 72 hours 03/10/21 23:10 Blood Culture - Preliminary Blood No Growth after 72 hours Assessment and Plan Assessment: 1. Leukocytosis/sepsis - As indicated by elevated WBC, lactic acid level, tachycardia and tachypnea, altered mental status - Patient has been placed on IV Zosyn 3.375 g IV every 8 hours; blood cultures and urine cultures obtained and pending - We will monitor CBC, CRP and pro-calcitonin; consult ID for further recommendations 2. Altered mental status/toxic metabolic encephalopathy - Lactic acidosis/sepsis/UTI; patient has been placed on IV fluids we will trend and monitor lactic acid levels; Continue with further sepsis workup if lactic acid levels continue to trend up; Consult ID if no improvement with current treatment 3. Hypertension; continue home dose of Lotrel then40 mg daily, Hydrea Diuril 25 mg daily, Lasix 20 mg daily 4. Diabetes mellitus type 1; continue with Lantus 50 units subcu daily at bedtime, NovoLog 20 units every before meals 3 times a day; hold off of metformin while inpatient 5. Hyperlipidemia; Lipitor 20 mg by mouth daily at bedtime 6. BPH; Flomax 0.8 mg daily 7. Depression; continue with Wellbutrin and Lexapro DVT prophylaxis; SCDs/subcu heparin CODE STATUS; full code
[2021-03-15 13:21] LABS: Basophils # (A) 0.2 k/uL (0-0.2); Basophils % (A) 2 %; Eosinophils # (A) 0.1 k/uL (0-0.7); Eosinophils % (A) 1 %; HGB 15.4 gm/dL (13.0-17.5); Lymphocytes # (A) 0.5 k/uL (1.0-4.8); Lymphocytes % (A) 4 %; MCH 29.4 pg (25.0-35.0); MCHC 34.2 g/dL (31.0-37.0); Mean Platelet Volume 8.7; Monocytes % (A) 9 %; Neutrophils # (A) 9.2 k/uL (1.3-7.7); Neutrophils % (A) 82 %; Platelet Count 179 k/uL (150-450); RBC 5.23 m/uL (4.30-5.90); RDW 13.8 % (11.5-15.5); WBC 11.2 k/uL (3.8-10.6)
[2021-03-15 13:28] LABS: ALT 118 U/L (4-49); AST 71 U/L (17-59); African American GFR (CKD) >90 (>60 ml/min/1.73 sqM); Albumin 3.3 g/dL (3.5-5.0); Albumin/Globulin Ratio 1.2; Alkaline Phosphatase 86 U/L (38-126); Anion Gap 9 mmol/L; Blood Urea Nitrogen 9 mg/dL (9-20); Carbon Dioxide 30 mmol/L (22-30); Chloride 94 mmol/L (98-107); Globulin 2.8 g/dL; Glucose 161 mg/dL (74-99); Non-African American GFR(CKD) >90 (>60 ml/min/1.73 sqM); Sodium 133 mmol/L (137-145); Total Bilirubin 1.1 mg/dL (0.2-1.3); Total Protein 6.1 g/dL (6.3-8.2)
[2021-03-15 13:30] LABS: ABG Base Excess 9.4 mmol/L; ABG HCO3 32 mmol/L (21-25); ABG Oxygen Saturation 89.7 % (94-97); ABG PCO2 36 mmHg (35-45); ABG TCO2 33 mmol/L (19-24); Allen Test Performed? Yes
[2021-03-15 13:35] LABS: ABG PH 7.56 (7.35-7.45)
[2021-03-15 13:36] LABS: ABG PO2 52 mmHg (83-108)
[2021-03-15 13:39] LABS: Potassium 2.7 mmol/L (3.5-5.1)
[2021-03-15] MEDS ORDERED: Potassium Replacement Protocol 1 EACH MISC MISCELLANE PRN (13:43)
[2021-03-15] MEDS: POTASSIUM CHLORIDE ER 20 MEQ TAB.ER PO SCH ×3 (13:48→16:23)
--- NOTE | 2021-03-15 16:02 | US ---
EXAMINATION TYPE: US scrotum with doppler. Grayscale and color Doppler Duplex imaging performed of hira [place] scrotum. DATE OF EXAM: 03/15/2021 COMPARISON: NONE CLINICAL HISTORY: Edema, redness. Left side swelling EXAM MEASUREMENTS: TESTICLES: Right Testicle: 6.0x3.2x4.1 cm Left Testicle: 5.7x3.4x3.9 cm EPIDIDYMIS HEAD: Right Epididymis: 1.0 cm Left Epididymis: 1.2 cm Doppler performed to assess for testicular vascularity; bilateral color flow and waveforms are seen Presence of hydroceles: Left hydrocele with septations Presence of varicoceles: No Edema left inferior, hyperemic left epididymis with some thickening suggested, waveform analysis show s diastolic flow bilaterally, elevated RI 0.74 in the left testicle IMPRESSION: Correlate for epididymitis,cellulitis. There is bilateral hydrocele.
--- NOTE | 2021-03-15 16:08 | P.PN ---
Subjective Progress Note Date: 03/15/21 Principal diagnosis: Leukocytosis/sepsis Altered mental status/toxic metabolic encephalopathy 65-year-old man, history of diabetes mellitus/hypertension, who arrives to be evaluated for suspected delirium. Most of the history comes from the patient's son as the patient believes he is delirious. Over the past couple of days he has had a change in urination reportedly urinating more frequently and having loss of continence. There may also been some low-grade fevers earlier. Today, patient's son arrived home from work and found the patient naked in the kitchen urinating there.. Workup in ED with a UA reveals positive nitrates, leukocyte esterase with WBCs and bacteria, lactic acid of 2.6, total bilirubin of 1.4, glucose 95, BUN/creatinine of 14/0.9; WBC is elevated at 20.6, hemoglobin 16.2 and hematocrit 48.2 with platelet count of 160 CT of the brain revealed cerebral atrophy with chronic white matter changes, no acute abnormality; chest x-ray reveals no acute process 03/13/2021 Patient is seen and evaluated in room at bedside; resting in bed and somewhat sleepy With O2 saturation 92% on room air Lab review shows WBC 9.5 which has trended down to 20.6 upon admission, hematocrit of 42.1, sodium 137,, potassium 3.2 Urine culture reveals gram-negative bacilli and final culture and sensitivity report is still pending; we will continue with current antibiotic therapy and adjust antibiotics once final culture and sensitivity report is available 03/14/2021 Patient seen and evaluated in room at bedside with daughter present in the room; patient is awake alert and oriented and denies any complaints Vital signs remained stable; labs are reviewed and are stable; urine culture and sensitivity completed; patient will be started transitioned to oral Bactrim to complete a total of 10 days of therapy and plan for outpatient follow-up; patient does have a Espinoza catheter which was placed due to urinary retention; we will DC Espinoza and monitor patient closely plans to consult urology if patient continues to have urinary retention versus discharge home and outpatient follow- up if no urinary concerns after discontinuing Espinoza 03/15/2021 Patient is seen and evaluated with nursing staff; remains completely confused; opens eyes to verbal stimulation but not oriented Vital signs are reviewed and stable with temperature of 96.5, pulse 68, respirations 16 and blood pressure 107/68 O2 saturation 97% on room air Significant findings on examination include marked swelling and erythema and induration of the scrotal sac with greenish yellow discharge around the Espinoza catheter site Patient did have CT of brain done upon admission which revealed cerebral atrophy with chronic white matter changes; we will hold off on repeat CT of head at this time and consult neurology for further recommendations Patient was switched to oral Bactrim in anticipation for discharge and has lost IV access as this time; we will consult ID for recommendations on antibiotics Order CBC, CRP and pro-calcitonin; we will order stat lactic acid levels Objective - Vital Signs Vital signs: Vital Signs Temp 98.7 F 03/15/21 08:00 Pulse 94 03/15/21 08:00 Resp 20 03/15/21 08:00 BP 189/82 03/15/21 08:00 Pulse Ox 91 L 03/15/21 08:00 Intake & Output 03/14/21 03/15/21 03/15/21 18:59 06:59 18:59 Output Total 2300 700 2000 Balance -2300 -700 -2000 Output: Urine 2300 700 2000 Uretheral (Espinoza) 1100 700 Other: Voiding Method Indwelling Catheter Indwelling Catheter # Voids 0 - Exam GENERAL: The patient is alert and oriented x3, not in any acute distress. Well developed, well nourished. HEENT: Pupils are round and equally reacting to light. EOMI. No scleral icterus. No conjunctival pallor. Normocephalic, atraumatic. No pharyngeal erythema. No thyromegaly. CARDIOVASCULAR: S1 and S2 present. No murmurs, rubs, or gallops. PULMONARY: Chest is clear to auscultation, no wheezing or crackles. ABDOMEN: Soft, nontender, nondistended, normoactive bowel sounds. No palpable organomegaly. MUSCULOSKELETAL: No joint swelling or deformity. EXTREMITIES: No cyanosis, clubbing, or pedal edema. NEUROLOGICAL: Gross neurological examination did not reveal any focal deficits. SKIN: No rashes. - Labs CBC & Chem 7: 03/15/21 12:59 03/15/21 12:59 Labs: Abnormal Lab Results - Last 24 Hours (Table) 03/14/21 03/14/21 03/15/21 Range/Units 16:25 21:13 07:22 POC Glucose (mg/dL) 180 H 204 H 151 H (75-99) mg/dL 03/15/21 Range/Units 11:24 POC Glucose (mg/dL) 186 H (75-99) mg/dL Microbiology - Last 24 Hours (Table) 03/10/21 22:50 Blood Culture - Preliminary Blood No Growth after 96 hours 03/10/21 23:10 Blood Culture - Preliminary Blood No Growth after 96 hours Assessment and Plan Assessment: 1. Leukocytosis/sepsis - As indicated by elevated WBC, lactic acid level, tachycardia and tachypnea, altered mental status - Patient has been placed on IV Zosyn 3.375 g IV every 8 hours; blood cultures and urine cultures obtained and pending - We will monitor CBC, CRP and pro-calcitonin; consult ID for further recommendations 2. Altered mental status/toxic metabolic encephalopathy - Lactic acidosis/sepsis/UTI; patient has been placed on IV fluids we will trend and monitor lactic acid levels; Continue with further sepsis workup if lactic acid levels continue to trend up; Consult ID if no improvement with current treatment 3. Hypertension; continue home dose of Lotrel then40 mg daily, Hydrea Diuril 25 mg daily, Lasix 20 mg daily 4. Diabetes mellitus type 1; continue with Lantus 50 units subcu daily at bedtime, NovoLog 20 units every before meals 3 times a day; hold off of metformin while inpatient 5. Hyperlipidemia; Lipitor 20 mg by mouth daily at bedtime 6. BPH; Flomax 0.8 mg daily 7. Depression; continue with Wellbutrin and Lexapro DVT prophylaxis; SCDs/subcu heparin CODE STATUS; full code
[2021-03-15 16:25] LABS: African American GFR (CKD) 112.6 (60.0-200.0); Anion Gap 15.4 mmol/L (4.00-12.00); BUN/Creat Ratio 12.96 Ratio (12.00-20.00); Blood Urea Nitrogen 9.7 mg/dL (9.0-27.0); Calcium 8.6 mg/dL (8.7-10.3); Carbon Dioxide 22.5 mmol/L (21.6-31.8); Non-African American GFR(CKD) 97.2 (60.0-200.0); Potassium 3.1 mmol/L (3.5-5.5)
[2021-03-15 16:26] LABS: Magnesium 1.8 mg/dL (1.5-2.4)
[2021-03-15 16:49] LABS: Glucose,Whole Blood 179 mg/dL (75-99)
--- NOTE | 2021-03-15 18:01 | P.CNNES ---
History of Present Illness Consult date: 03/15/21 Requesting physician: Lobo Zelaya Reason for Consult: AMS History of Present Illness: Patient is a 65-year-old male came to the hospital on 03/10/2021 for possible delirium. As per report from the nurse, patient was found urinating in the corner of the kitchen of his home, confused therefore brought to the hospital. Patient was noticed to be urinating more frequently and having loss of continence. Patient had low-grade fever. Patient was diagnosed with altered mental status due to toxic metabolic encephalopathy possibly from UTI. Patient also has history of hypertension, diabetes, hyperlipidemia, BPH and depression. Apparently he was doing somewhat better yesterday, talking normally with his son, but today has got worse again, therefore neurology consult was initiated. No reported history of alcoholism or any drug use. He is somewhat restless. Patient at present not able to provide any history. When I asked about headache, states headache is "as much as yesterday". Patient's most recent vital signs with blood pressure 130/67, pulse rate 104 and temperature 99.2. His recent blood test shows WBC 11.2 hemoglobin 15.4, platelets 179. ABG with pH 7.56, pCO2 36, pO2 is 52 and saturation 89%. Sodium 133 potassium 2.7, normal renal function, normal ammonia. Patient's most recent hepatic panel are abnormal AST is 71, ALT 118. Patient's hepatic panel was normal on admission. Computed tomography scan of the head showed cerebral atrophy. Chronic white matter changes. No acute process. Chest x-ray is normal. EKG with sinus tachycardia, right bundle branch block. Patient's urine has grown 50,000-100,000 E. coli. UA was abnormal with positive nitrite, trace leukocyte esterase and 40 WBC. Coronavirus PCR negative. I spoke to patient's son on the phone. He mentioned that on the day of admission patient called his son, telling that he is having fever, feeling sick. When the patient's son came home at 11 PM, he was but naked, being all over the house. After he was hospitalized, he was doing better, yesterday had full conversation, but today is back to worse, even worse than how he was before arrival. Patient has history of prostate hypertrophy. He is concerned if patie nt is having prostate cancer. Review of Systems ROS unobtainable: due to mental status Past Medical History Past Medical History: Diabetes Mellitus, Hypertension History of Any Multi-Drug Resistant Organisms: None Reported Additional Past Surgical History / Comment(s): hernia Past Psychological History: No Psychological Hx Reported Smoking Status: Current every day smoker Past Alcohol Use History: None Reported Past Drug Use History: None Reported Medications and Allergies Home Medications Medication Instructions Recorded Confirmed Type Atorvastatin Calcium [Lipitor] 20 mg PO DAILY 03/11/21 03/11/21 History Escitalopram [Lexapro] 20 mg PO DAILY 03/11/21 03/11/21 History Furosemide [Lasix] 20 mg PO DAILY 03/11/21 03/11/21 History Insulin Glargine,Hum.rec.anlog 50 unit SQ HS 03/11/21 03/11/21 History [Lantus Solostar Pen] Insulin Lispro [humaLOG Kwikpen] 20 unit SQ AC-TID 03/11/21 03/11/21 History Tamsulosin HCl [Flomax] 0.8 mg PO DAILY 03/11/21 03/11/21 History amLODIPine BESYLATE/BENAZEPRIL 1 cap PO DAILY 03/11/21 03/11/21 History [Lotrel 10-40 MG] buPROPion HCL [Wellbutrin SR] 150 mg PO BID 03/11/21 03/11/21 History hydroCHLOROthiazide [Hydrodiuril] 25 mg PO DAILY 03/11/21 03/11/21 History metFORMIN HCL [Glucophage] 1,000 mg PO AC-BID 03/11/21 03/11/21 History Sulfamethox-Tmp 800-160Mg [Bactrim 1 tab PO Q12HR 7 Days #14 tab 03/14/21 Rx DS 800-160 mg] hydrALAZINE HCL [Apresoline] 25 mg PO BID #60 tab 03/14/21 Rx Allergies Allergy/AdvReac Type Severity Reaction Status Date / Time No Known Allergies Allergy Verified 03/11/21 10:24 Physical Examination - Vital Signs Vital Signs: Vital Signs Temp Pulse Resp BP Pulse Ox 03/15/21 08:00 98.7 F 94 20 189/82 91 L 03/15/21 07:45 94 20 03/15/21 02:00 99.1 F 91 25 H 154/88 93 L 03/15/21 00:00 99.2 F 94 16 172/85 92 L 03/14/21 23:23 100.4 F H 102 H 25 H 173/83 96 03/14/21 19:35 97.9 F 87 17 152/87 95 03/14/21 15:57 98.1 F 83 20 132/74 93 L Intake and Output 03/14/21 03/15/21 03/15/21 22:59 06:59 14:59 Output Total 700 2000 Balance -700 -2000 Output: Urine 700 2000 Uretheral (Espinoza) 700 Other: Voiding Method Indwelling Catheter # Voids 0 On examination patient is an elderly male, who is significantly encephalopathic. Patient is almost completely undressed, Patient is awake, but delirious. Patient was able to tell it is February, but could not tell the year. When I asked about president, patient states "depends". Patient is able to name objects. Patient did not participate with repetition. Attention, concentration and fund of knowledge is limited. On cranial examination, pupils are round and reacting to light, visual lawrence could not be tested, extraocular muscles are intact with no nystagmus. Face is symmetric, tongue protrudes to the midline. Palatal elevation and sensation normal could not be tested, hearing appears slightly decreased, and did not cooperate for facial sensation, shoulder shrug. On muscle strength testing, patient did not cooperate at all with testing. Patient moves his arms and legs equally. He would not lift his arms up. Even with manual lifting his arms, he would drop it down. Deep tendon reflexes are very diminished, and plantars are withdrawal bilaterally. Sensory to touch could not be assessed. Cerebellar function cannot be checked. Gait cannot be checked.. On general examination, there is no carotid bruit or murmur, S1-S2 audible. Abdomen is soft nontender. Chest is clear. No edema. Results - Laboratory Findings CBC and BMP: 03/15/21 12:59 03/15/21 12:59 Abnormal Lab Findings: Abnormal Labs 03/10/21 03/10/21 03/10/21 23:16 23:16 23:16 WBC 20.6 H Plt Count Neutrophils # 18.4 H Lymphocytes # 0.7 L Monocytes # 1.3 H ABG pH ABG pO2 ABG HCO3 ABG Total CO2 ABG O2 Saturation Sodium 134 L Potassium Chloride Carbon Dioxide 20 L Anion Gap Glucose 295 H POC Glucose (mg/dL) Plasma Lactic Acid Polo 2.6 H* Total Bilirubin 1.4 H AST ALT C-Reactive Protein Total Protein Albumin Procalcitonin Ur Specific [place] Urine Protein Urine Glucose (UA) Urine Ketones Urine Blood Ur Leukocyte Esterase Urine WBC Amorphous Sediment Urine Bacteria Urine Mucus 03/11/21 03/11/21 03/11/21 00:58 07:23 21:54 WBC Plt Count Neutrophils # Lymphocytes # Monocytes # ABG pH ABG pO2 ABG HCO3 ABG Total CO2 ABG O2 Saturation Sodium Potassium Chloride Carbon Dioxide Anion Gap Glucose POC Glucose (mg/dL) 223 H 270 H Plasma Lactic Acid Polo Total Bilirubin AST ALT C-Reactive Protein Total Protein Albumin Procalcitonin Ur Specific [place] 1.037 H Urine Protein 2+ H Urine Glucose (UA) 4+ H Urine Ketones 2+ H Urine Blood Moderate H Ur Leukocyte Esterase Trace H Urine WBC 14 H Amorphous Sediment Rare H Urine Bacteria Rare H Urine Mucus Rare H 03/12/21 03/12/21 03/12/21 04:23 04:23 04:23 WBC 12.8 H Plt Count 130 L Neutrophils # 10.9 H Lymphocytes # 0.8 L Monocytes # ABG pH ABG pO2 ABG HCO3 ABG Total CO2 ABG O2 Saturation Sodium Potassium 3.4 L Chloride Carbon Dioxide 20.6 L Anion Gap 15.40 H Glucose 165 H POC Glucose (mg/dL) Plasma Lactic Acid Polo Total Bilirubin AST ALT C-Reactive Protein 24.30 H Total Protein Albumin Procalcitonin 0.51 H Ur Specific [place] Urine Protein Urine Glucose (UA) Urine Ketones Urine Blood Ur Leukocyte Esterase Urine WBC Amorphous Sediment Urine Bacteria Urine Mucus 03/12/21 03/12/21 03/12/21 08:14 12:13 20:46 WBC Plt Count Neutrophils # Lymphocytes # Monocytes # ABG pH ABG pO2 ABG HCO3 ABG Total CO2 ABG O2 Saturation Sodium Potassium Chloride Carbon Dioxide Anion Gap Glucose POC Glucose (mg/dL) 172 H 146 H 257 H Plasma Lactic Acid Polo Total Bilirubin AST ALT C-Reactive Protein Total Protein Albumin Procalcitonin Ur Specific [place] Urine Protein Urine Glucose (UA) Urine Ketones Urine Blood Ur Leukocyte Esterase Urine WBC Amorphous Sediment Urine Bacteria Urine Mucus 03/13/21 03/13/21 03/13/21 04:35 04:35 07:12 WBC Plt Count Neutrophils # Lymphocytes # 0.9 L Monocytes # ABG pH ABG pO2 ABG HCO3 ABG Total CO2 ABG O2 Saturation Sodium Potassium 3.2 L Chloride Carbon Dioxide Anion Gap Glucose 149 H POC Glucose (mg/dL) 135 H Plasma Lactic Acid Polo Total Bilirubin AST ALT C-Reactive Protein 16.4 H Total Protein Albumin Procalcitonin Ur Specific [place] Urine Protein Urine Glucose (UA) Urine Ketones Urine Blood Ur Leukocyte Esterase Urine WBC Amorphous Sediment Urine Bacteria Urine Mucus 03/13/21 03/13/21 03/14/21 16:54 20:05 06:56 WBC Plt Count Neutrophils # Lymphocytes # Monocytes # ABG pH ABG pO2 ABG HCO3 ABG Total CO2 ABG O2 Saturation Sodium Potassium Chloride Carbon Dioxide Anion Gap Glucose POC Glucose (mg/dL) 232 H 167 H 146 H Plasma Lactic Acid Polo Total Bilirubin AST ALT C-Reactive Protein Total Protein Albumin Procalcitonin Ur Specific [place] Urine Protein Urine Glucose (UA) Urine Ketones Urine Blood Ur Leukocyte Esterase Urine WBC Amorphous Sediment Urine Bacteria Urine Mucus 03/14/21 03/14/21 03/14/21 08:24 11:49 16:25 WBC Plt Count Neutrophils # Lymphocytes # Monocytes # ABG pH ABG pO2 ABG HCO3 ABG Total CO2 ABG O2 Saturation Sodium 133 L Potassium 3.0 L Chloride Carbon Dioxide Anion Gap Glucose 275 H POC Glucose (mg/dL) 177 H 180 H Plasma Lactic Acid Polo Total Bilirubin AST ALT C-Reactive Protein Total Protein Albumin Procalcitonin Ur Specific [place] Urine Protein Urine Glucose (UA) Urine Ketones Urine Blood Ur Leukocyte Esterase Urine WBC Amorphous Sediment Urine Bacteria Urine Mucus 03/14/21 03/15/21 03/15/21 21:13 07:22 11:24 WBC Plt Count Neutrophils # Lymphocytes # Monocytes # ABG pH ABG pO2 ABG HCO3 ABG Total CO2 ABG O2 Saturation Sodium Potassium Chloride Carbon Dioxide Anion Gap Glucose POC Glucose (mg/dL) 204 H 151 H 186 H Plasma Lactic Acid Polo Total Bilirubin AST ALT C-Reactive Protein Total Protein Albumin Procalcitonin Ur Specific [place] Urine Protein Urine Glucose (UA) Urine Ketones Urine Blood Ur Leukocyte Esterase Urine WBC Amorphous Sediment Urine Bacteria Urine Mucus 03/15/21 03/15/21 03/15/21 12:59 12:59 13:26 WBC 11.2 H Plt Count Neutrophils # 9.2 H Lymphocytes # 0.5 L Monocytes # ABG pH 7.56 H* ABG pO2 52 L* ABG HCO3 32 H ABG Total CO2 33 H ABG O2 Saturation 89.7 L Sodium 133 L Potassium 2.7 L* Chloride 94 L Carbon Dioxide Anion Gap Glucose 161 H POC Glucose (mg/dL) Plasma Lactic Acid Ploo Total Bilirubin AST 71 H ALT 118 H C-Reactive Protein Total Protein 6.1 L Albumin 3.3 L Procalcitonin Ur Specific [place] Urine Protein Urine Glucose (UA) Urine Ketones Urine Blood Ur Leukocyte Esterase Urine WBC Amorphous Sediment Urine Bacteria Urine Mucus Assessment and Plan Assessment: * Altered mental status, likely due to toxic metabolic encephalopathy. Causes multifactorial as below * UTI due to E. coli * Hyponatremia, hyponatremia, hypokalemia, metabolic alkalosis * Scrotal edema * Elevated LFTs * Hypertension * Diabetes * Hyperlipidemia * History of BPH. Plan: * Patient will undergo EEG * Agree with infectious disease consult. * Repeat computed tomography scan of head. Patient probably would not be able to lay for an MRI. * Consider lumbar puncture, if recommended by ID. * Treatment of other medical conditions as per IM. * We will follow clinically.
--- NOTE | 2021-03-15 19:10 | P.GSCN ---
History of Present Illness Consult date: 03/15/21 History of present illness: t 65 yo obese diabetic who several days ago was brought to the er by his son for mental staus changes and incontinence. It became evident that he had a uti with sepsis. His urine was infected and his wbc were 20k. He was treated with broad spectrum antibiotics. His mental status has not improved significantly. His wbc have dropped to 11k. The nursing staff today noticed scrotal edema and pericatheter discharge. For this reason I was asked to see the patient. The patient can give no history Upon review of the chart there is one nursing note identifying scrotal edema prior to today. There are no other comments about the scrotal status. The urine has grown e coli. He is not febrile Past Medical History Past Medical History: Diabetes Mellitus, Hypertension History of Any Multi-Drug Resistant Organisms: None Reported Additional Past Surgical History / Comment(s): hernia Past Psychological History: No Psychological Hx Reported Smoking Status: Current every day smoker Past Alcohol Use History: None Reported Past Drug Use History: None Reported Medications and Allergies Home Medications Medication Instructions Recorded Confirmed Type Atorvastatin Calcium [Lipitor] 20 mg PO DAILY 03/11/21 03/11/21 History Escitalopram [Lexapro] 20 mg PO DAILY 03/11/21 03/11/21 History Furosemide [Lasix] 20 mg PO DAILY 03/11/21 03/11/21 History Insulin Glargine,Hum.rec.anlog 50 unit SQ HS 03/11/21 03/11/21 History [Lantus Solostar Pen] Insulin Lispro [humaLOG Kwikpen] 20 unit SQ AC-TID 03/11/21 03/11/21 History Tamsulosin HCl [Flomax] 0.8 mg PO DAILY 03/11/21 03/11/21 History amLODIPine BESYLATE/BENAZEPRIL 1 cap PO DAILY 03/11/21 03/11/21 History [Lotrel 10-40 MG] buPROPion HCL [Wellbutrin SR] 150 mg PO BID 03/11/21 03/11/21 History hydroCHLOROthiazide [Hydrodiuril] 25 mg PO DAILY 03/11/21 03/11/21 History metFORMIN HCL [Glucophage] 1,000 mg PO AC-BID 03/11/21 03/11/21 History Sulfamethox-Tmp 800-160Mg [Bactrim 1 tab PO Q12HR 7 Days #14 tab 03/14/21 Rx DS 800-160 mg] hydrALAZINE HCL [Apresoline] 25 mg PO BID #60 tab 03/14/21 Rx Allergies Allergy/AdvReac Type Severity Reaction Status Date / Time No Known Allergies Allergy Verified 03/11/21 10:24 Surgical - Exam Vital Signs Temp Pulse Resp BP Pulse Ox 101.0 F H 122 H 20 163/95 93 L 03/10/21 22:04 03/10/21 22:04 03/10/21 22:04 03/10/21 22:04 03/10/21 22:04 - General mild distress with scrotal examination well developed, obese - Neck no masses - Respiratory normal expansion, normal respiratory effort (indw) - Cardiovascular Rhythm: regular - Genitourinary indwelling catheter. charla catheter discharge. inflammed slightly edematous scrotum without crepitus, or abscess. Indurated tender left epididymis. - Neurologic disoriented, confused Results - Labs 03/15/21 12:59 03/15/21 12:59 Abnormal Lab Results - Last 24 Hours (Table) 03/14/21 03/15/21 03/15/21 Range/Units 21:13 06:36 07:22 WBC (3.8-10.6) k/uL Neutrophils # (1.3-7.7) k/uL Lymphocytes # (1.0-4.8) k/uL ABG pH (7.35-7.45) ABG pO2 (83-108) mmHg ABG HCO3 (21-25) mmol/L ABG Total CO2 (19-24) mmol/L ABG O2 Saturation (94-97) % Sodium (137-145) mmol/L Potassium 3.1 L (3.5-5.5) mmol/L Chloride (98-107) mmol/L Anion Gap 15.40 H (4.00-12.00) mmol/L Glucose 162 H (70-110) mg/dL POC Glucose (mg/dL) 204 H 151 H (75-99) mg/dL Calcium 8.6 L (8.7-10.3) mg/dL AST (17-59) U/L ALT (4-49) U/L Total Protein (6.3-8.2) g/dL Albumin (3.5-5.0) g/dL 03/15/21 03/15/21 03/15/21 Range/Units 11:24 12:59 12:59 WBC 11.2 H (3.8-10.6) k/uL Neutrophils # 9.2 H (1.3-7.7) k/uL Lymphocytes # 0.5 L (1.0-4.8) k/uL ABG pH (7.35-7.45) ABG pO2 (83-108) mmHg ABG HCO3 (21-25) mmol/L ABG Total CO2 (19-24) mmol/L ABG O2 Saturation (94-97) % Sodium 133 L (137-145) mmol/L Potassium 2.7 L* (3.5-5.5) mmol/L Chloride 94 L (98-107) mmol/L Anion Gap (4.00-12.00) mmol/L Glucose 161 H (70-110) mg/dL POC Glucose (mg/dL) 186 H (75-99) mg/dL Calcium (8.7-10.3) mg/dL AST 71 H (17-59) U/L ALT 118 H (4-49) U/L Total Protein 6.1 L (6.3-8.2) g/dL Albumin 3.3 L (3.5-5.0) g/dL 03/15/21 03/15/21 Range/Units 13:26 16:43 WBC (3.8-10.6) k/uL Neutrophils # (1.3-7.7) k/uL Lymphocytes # (1.0-4.8) k/uL ABG pH 7.56 H* (7.35-7.45) ABG pO2 52 L* (83-108) mmHg ABG HCO3 32 H (21-25) mmol/L ABG Total CO2 33 H (19-24) mmol/L ABG O2 Saturation 89.7 L (94-97) % Sodium (137-145) mmol/L Potassium (3.5-5.5) mmol/L Chloride (98-107) mmol/L Anion Gap (4.00-12.00) mmol/L Glucose (70-110) mg/dL POC Glucose (mg/dL) 179 H (75-99) mg/dL Calcium (8.7-10.3) mg/dL AST (17-59) U/L ALT (4-49) U/L Total Protein (6.3-8.2) g/dL Albumin (3.5-5.0) g/dL Microbiology - Last 24 Hours (Table) 03/10/21 22:50 Blood Culture - Preliminary Blood No Growth after 96 hours 03/10/21 23:10 Blood Culture - Preliminary Blood No Growth after 96 hours Diabetes panel 03/15/21 03/15/21 Range/Units 06:36 12:59 Sodium 137 133 L (135-145) mmol/L Potassium 3.1 L 2.7 L* (3.5-5.5) mmol/L Chloride 100 94 L (96-109) mmol/L Carbon Dioxide 22.5 30 (21.6-31.8) mmol/L BUN 9.7 9 (9.0-27.0) mg/dL Creatinine 0.7 0.73 (0.6-1.5) mg/dL Glucose 162 H 161 H (70-110) mg/dL Calcium 8.6 L 9.0 (8.7-10.3) mg/dL AST 71 H (17-59) U/L ALT 118 H (4-49) U/L Alkaline Phosphatase 86 (38-126) U/L Total Protein 6.1 L (6.3-8.2) g/dL Albumin 3.3 L (3.5-5.0) g/dL Calcium panel 03/15/21 03/15/21 Range/Units 06:36 12:59 Calcium 8.6 L 9.0 (8.7-10.3) mg/dL Albumin 3.3 L (3.5-5.0) g/dL Pituitary panel 03/15/21 03/15/21 Range/Units 06:36 12:59 Sodium 137 133 L (135-145) mmol/L Potassium 3.1 L 2.7 L* (3.5-5.5) mmol/L Chloride 100 94 L (96-109) mmol/L Carbon Dioxide 22.5 30 (21.6-31.8) mmol/L BUN 9.7 9 (9.0-27.0) mg/dL Creatinine 0.7 0.73 (0.6-1.5) mg/dL Glucose 162 H 161 H (70-110) mg/dL Calcium 8.6 L 9.0 (8.7-10.3) mg/dL Adrenal panel 03/15/21 03/15/21 Range/Units 06:36 12:59 Sodium 137 133 L (135-145) mmol/L Potassium 3.1 L 2.7 L* (3.5-5.5) mmol/L Chloride 100 94 L (96-109) mmol/L Carbon Dioxide 22.5 30 (21.6-31.8) mmol/L BUN 9.7 9 (9.0-27.0) mg/dL Creatinine 0.7 0.73 (0.6-1.5) mg/dL Glucose 162 H 161 H (70-110) mg/dL Calcium 8.6 L 9.0 (8.7-10.3) mg/dL Total Bilirubin 1.1 (0.2-1.3) mg/dL AST 71 H (17-59) U/L ALT 118 H (4-49) U/L Alkaline Phosphatase 86 (38-126) U/L Total Protein 6.1 L (6.3-8.2) g/dL Albumin 3.3 L (3.5-5.0) g/dL - Imaging US - pelvic: report reviewed, image reviewed Assessment and Plan Assessment: Impression: Uti with sepsis. Left epididymorchitis. Diabetes Plan: I suspect the epidimorchitis has been present all along and just not noted. He is on appropriate antibiotics. His wbc is coming down. THere is nothing surgical to be done at present.
--- NOTE | 2021-03-15 20:24 | CT ---
EXAMINATION TYPE: CT brain wo con DATE OF EXAM: 03/15/2021 COMPARISON: CT brain 03/10/2021 HISTORY: Worsening mental status CT DLP: 1231.4 mGycm Automated exposure control for dose reduction was used. Helical imaging through the brain. FINDINGS: There is no interval change. Periventricular white matter shows patchy low attenuation. Ventricles sh ow stable appearance. There is no hemorrhage. Calvarium is intact. Question some abnormal soft tissue attenuation involving the mastoid air cells on the right, middle ear. IMPRESSION: CORRELATE FOR POSSIBLE OTITIS MEDIA, DEDICATED IMAGING OF THE TEMPORAL BONE MAY BE OF BENEFIT. AGE-RE LATED CHANGES OF ATROPHY AND PROBABLE SMALL VESSEL ISCHEMIA.
[2021-03-15 20:27] LABS: Glucose,Whole Blood 167 mg/dL (75-99)
[2021-03-15] MEDS: INSULIN DETEMIR (LEVEMIR) 100 UNIT/ML SYR SQ SCH (21:21)
--- NOTE | 2021-03-15 23:20 | P.CONS ---
History of Present Illness - Reason for Consult Consult date: 03/15/21 UTI/Orchitis Requesting physician: Lobo Zelaya - Chief Complaint mental status changes x few days - History of Present Illness History of present illness : Patient is 65-year-old male presenting to the hospital about 5 days ago on 03/10/2021 who presented to hospital for possible delirium patient son was concerned the patient was delirious for couple of days patient apparently also noticed to have a change in urination reportedly urinating more frequently and having loss of control and also some low-grade fever with the symptoms the patient was evaluated on arrival to the ER patient did have a fever of 101 F patient also spiked a fever of 101 on 1016 however no fever the next 2 days until last night when he spiked another fever 100.4 F patient did have a elevated white count 20,000 that normalized to 9.5 on the however slightly rated at 9.2 today patient did have normal kidney function potassium was low levels of the mildly elevated patient did have positive urine however PCR was negative urine culture did grow E. coli that was resistant to Unasyn blood culture has been negative patient was noticed to be more lethargic today and apparently also noticed to have scrotal edema for the patient did have a scrotal ultrasound shows correlate for epididymal orchitis cellulitis bilateral hydrocele infectious disease was consulted for further management of antibiotic therapy, most information has been obtained from review the chart talking to the nursing staff as the patient has not been able to provide reliable history Review of system: Positive point has been mentioned in HPI complete review could not be obtained because of underlying mental status Past medical history : Reviewed, documented below Past surgical history : Reviewed, documented below Social history: Reviewed, documented below Medications: Reviewed, as documented below EXAMINATION: Vital sigans= Reviewed and documented below GENERAL DESCRIPTION: Middle-aged male lying in bed, no distress. No tachypnea or accessory muscle of respiration use. HEENT: Shows Pallor , no scleral icterus. Oral mucous membrane is dry. NECK: Trachea central, no thyromegaly. LUNGS: Unlabored breathing. Decreased breath sound at the base. No wheeze or crackle. HEART: S1, S2, regular rate and rhythm. ABDOMEN: Soft, no tenderness , guarding or rigidity : Patient has significant scrotal edema swelling and redness and did have purulent drainage from the cervical centimeters EXTREMITIES: No edema of feet. SKIN: No rash, no masses palpable. NEUROLOGICAL: The patient is lethargic orientation could not be determined LABS AND RADIOLOGY: Reviewed results see below Assessment : 1-patient presented to hospital 5 days ago with sepsis source likely urinary in this patient urine did grow E. coli now did have a significant scrotal swelling and concern for orchitis and bilateral hydrocele no mention of any abscess patient did grew E. coli in the urine which is sensitive to Zosyn the patient is on the patient fever has resolved and white count has normalized more likely indicating adequate antibiotic therapy Plan: 1-we will repeat his urine culture blood cultures as well as obtain culture from his urethral drainage 2-continue patient on Zosyn 3.37 g every 8 hours 3-gentle IV fluid We will follow on clinical condition and cultures to further adjust medication if needed Thank you for this consultation we will follow the patient along with you Past Medical History Past Medical History: Diabetes Mellitus, Hypertension History of Any Multi-Drug Resistant Organisms: None Reported Additional Past Surgical History / Comment(s): hernia Past Psychological History: No Psychological Hx Reported Smoking Status: Current every day smoker Past Alcohol Use History: None Reported Past Drug Use History: None Reported Medications and Allergies Home Medications Medication Instructions Recorded Confirmed Type Atorvastatin Calcium [Lipitor] 20 mg PO DAILY 03/11/21 03/11/21 History Escitalopram [Lexapro] 20 mg PO DAILY 03/11/21 03/11/21 History Furosemide [Lasix] 20 mg PO DAILY 03/11/21 03/11/21 History Insulin Glargine,Hum.rec.anlog 50 unit SQ HS 03/11/21 03/11/21 History [Lantus Solostar Pen] Insulin Lispro [humaLOG Kwikpen] 20 unit SQ AC-TID 03/11/21 03/11/21 History Tamsulosin HCl [Flomax] 0.8 mg PO DAILY 03/11/21 03/11/21 History amLODIPine BESYLATE/BENAZEPRIL 1 cap PO DAILY 03/11/21 03/11/21 History [Lotrel 10-40 MG] buPROPion HCL [Wellbutrin SR] 150 mg PO BID 03/11/21 03/11/21 History hydroCHLOROthiazide [Hydrodiuril] 25 mg PO DAILY 03/11/21 03/11/21 History metFORMIN HCL [Glucophage] 1,000 mg PO AC-BID 03/11/21 03/11/21 History Sulfamethox-Tmp 800-160Mg [Bactrim 1 tab PO Q12HR 7 Days #14 tab 03/14/21 Rx DS 800-160 mg] hydrALAZINE HCL [Apresoline] 25 mg PO BID #60 tab 03/14/21 Rx Allergies Allergy/AdvReac Type Severity Reaction Status Date / Time No Known Allergies Allergy Verified 03/11/21 10:24 Physical Exam Vitals: Vital Signs Temp Pulse Resp BP Pulse Ox 03/15/21 14:00 99.2 F 104 H 20 130/67 90 L 03/15/21 08:00 98.7 F 94 20 189/82 91 L 03/15/21 07:45 94 20 03/15/21 02:00 99.1 F 91 25 H 154/88 93 L 03/15/21 00:00 99.2 F 94 16 172/85 92 L 03/14/21 23:23 100.4 F H 102 H 25 H 173/83 96 03/14/21 19:35 97.9 F 87 17 152/87 95 Intake and Output 03/15/21 03/15/21 03/15/21 06:59 14:59 22:59 Output Total 1999 Balance -1999 Output: Urine 1999 Other: Voiding Method Indwelling Catheter Results CBC & Chem 7: 03/15/21 12:59 03/15/21 12:59 Labs: Abnormal Lab Results - Last 24 Hours (Table) 03/14/21 03/15/21 03/15/21 Range/Units 21:13 06:36 07:22 WBC (3.8-10.6) k/uL Neutrophils # (1.3-7.7) k/uL Lymphocytes # (1.0-4.8) k/uL ABG pH (7.35-7.45) ABG pO2 (83-108) mmHg ABG HCO3 (21-25) mmol/L ABG Total CO2 (19-24) mmol/L ABG O2 Saturation (94-97) % Sodium (137-145) mmol/L Potassium 3.1 L (3.5-5.5) mmol/L Chloride (98-107) mmol/L Anion Gap 15.40 H (4.00-12.00) mmol/L Glucose 162 H (70-110) mg/dL POC Glucose (mg/dL) 204 H 151 H (75-99) mg/dL Calcium 8.6 L (8.7-10.3) mg/dL AST (17-59) U/L ALT (4-49) U/L Total Protein (6.3-8.2) g/dL Albumin (3.5-5.0) g/dL 03/15/21 03/15/21 03/15/21 Range/Units 11:24 12:59 12:59 WBC 11.2 H (3.8-10.6) k/uL Neutrophils # 9.2 H (1.3-7.7) k/uL Lymphocytes # 0.5 L (1.0-4.8) k/uL ABG pH (7.35-7.45) ABG pO2 (83-108) mmHg ABG HCO3 (21-25) mmol/L ABG Total CO2 (19-24) mmol/L ABG O2 Saturation (94-97) % Sodium 133 L (137-145) mmol/L Potassium 2.7 L* (3.5-5.5) mmol/L Chloride 94 L (98-107) mmol/L Anion Gap (4.00-12.00) mmol/L Glucose 161 H (70-110) mg/dL POC Glucose (mg/dL) 186 H (75-99) mg/dL Calcium (8.7-10.3) mg/dL AST 71 H (17-59) U/L ALT 118 H (4-49) U/L Total Protein 6.1 L (6.3-8.2) g/dL Albumin 3.3 L (3.5-5.0) g/dL 03/15/21 Range/Units 13:26 WBC (3.8-10.6) k/uL Neutrophils # (1.3-7.7) k/uL Lymphocytes # (1.0-4.8) k/uL ABG pH 7.56 H* (7.35-7.45) ABG pO2 52 L* (83-108) mmHg ABG HCO3 32 H (21-25) mmol/L ABG Total CO2 33 H (19-24) mmol/L ABG O2 Saturation 89.7 L (94-97) % Sodium (137-145) mmol/L Potassium (3.5-5.5) mmol/L Chloride (98-107) mmol/L Anion Gap (4.00-12.00) mmol/L Glucose (70-110) mg/dL POC Glucose (mg/dL) (75-99) mg/dL Calcium (8.7-10.3) mg/dL AST (17-59) U/L ALT (4-49) U/L Total Protein (6.3-8.2) g/dL Albumin (3.5-5.0) g/dL Microbiology - Last 24 Hours (Table) 03/10/21 22:50 Blood Culture - Preliminary Blood No Growth after 96 hours 03/10/21 23:10 Blood Culture - Preliminary Blood No Growth after 96 hours
[2021-03-16] MEDS: PIPERACILLIN-TAZOBACTAM 3.375 GM in SODIUM CHLORIDE 0.9% 100 ML IVPB SCH ×3 (00:59→16:21)
[2021-03-16] MEDS: POTASSIUM CHLORIDE ER 20 MEQ TAB.ER PO SCH ×2 (02:27→03:32)
[2021-03-16] MEDS: SODIUM CHLORIDE 0.9% 1,000 ML IV SCH ×3 (03:30→16:24)
[2021-03-16] MEDS: ACETAMINOPHEN TAB 325 MG TAB PO PRN (03:47)
[2021-03-16 07:20] LABS: Glucose,Whole Blood 162 mg/dL (75-99)
[2021-03-16] MEDS: INSULIN ASPART (NovoLOG) 100 UNIT/ML VIAL SQ SCH ×3 (08:15→16:37)
[2021-03-16] MEDS: lisinopriL 20 MG TAB PO SCH (08:16)
[2021-03-16] MEDS: TAMSULOSIN 0.4 MG CAP.ER.24H PO SCH (08:16)
[2021-03-16] MEDS: ATORVASTATIN 20 MG TAB PO SCH (08:16)
[2021-03-16] MEDS: hydroCHLOROthiazide 25 MG TAB PO SCH (08:17)
[2021-03-16] MEDS: amLODIPine 10 MG TAB PO SCH (08:17)
[2021-03-16] MEDS: buPROPion SR 150 MG TABLET.ER PO SCH (08:17)
[2021-03-16] MEDS: FUROSEMIDE 20 MG TAB PO SCH (08:17)
[2021-03-16] MEDS: hydrALAZINE HCL 25 MG TAB PO SCH (08:17)
[2021-03-16] MEDS: ESCITALOPRAM 20 MG TAB PO SCH (08:17)
[2021-03-16] MEDS: FAMOTIDINE 20 MG TAB PO SCH (08:17)
--- NOTE | 2021-03-16 08:19 | P.PN ---
Subjective Progress Note Date: 03/16/21 The patient is in the hospital with an epididymitis, urinary tract infection. He has some scrotal swelling which was noticed last night. I saw the patient yesterday. He was incoherent as he has been since he was admitted 03/10/2021. He had a lot of erythema and induration. This morning he is more coherent. He had a low-grade temperature to 100 last night. The erythema is less but there is still is induration as expected. There is no obvious abscess nor was her yesterday. The scrotal ultrasound was reviewed. I will continue to observe him. He should continue with IV antibiotics. I was able to talk to him today about voiding. He states that he did have voiding dysfunction prior to this hospitalization. He has never seen a urologist nor had an infection before. He apparently has been on tamsulosin. I will continue to follow. Objective - Vital Signs Vital signs: Vital Signs Temp 100.1 F H 03/16/21 02:00 Pulse 97 03/16/21 02:00 Resp 22 03/16/21 02:00 BP 163/87 03/16/21 02:00 Pulse Ox 93 L 03/16/21 02:00 Intake & Output 03/15/21 03/16/21 03/16/21 18:59 06:59 18:59 Output Total 3600 1300 Balance -3600 -1300 Output: Urine 3600 1300 Other: Voiding Method Indwelling Catheter Indwelling Catheter # Bowel Movements 1 - Labs CBC & Chem 7: 03/15/21 12:59 03/16/21 00:56 Labs: Abnormal Lab Results - Last 24 Hours (Table) 03/15/21 03/15/21 03/15/21 Range/Units 06:36 11:24 12:59 WBC 11.2 H (3.8-10.6) k/uL Neutrophils # 9.2 H (1.3-7.7) k/uL Lymphocytes # 0.5 L (1.0-4.8) k/uL ABG pH (7.35-7.45) ABG pO2 (83-108) mmHg ABG HCO3 (21-25) mmol/L ABG Total CO2 (19-24) mmol/L ABG O2 Saturation (94-97) % Sodium (137-145) mmol/L Potassium 3.1 L (3.5-5.5) mmol/L Chloride (98-107) mmol/L Anion Gap 15.40 H (4.00-12.00) mmol/L Glucose 162 H (70-110) mg/dL POC Glucose (mg/dL) 186 H (75-99) mg/dL Calcium 8.6 L (8.7-10.3) mg/dL AST (17-59) U/L ALT (4-49) U/L Total Protein (6.3-8.2) g/dL Albumin (3.5-5.0) g/dL 03/15/21 03/15/21 03/15/21 Range/Units 12:59 13:26 16:43 WBC (3.8-10.6) k/uL Neutrophils # (1.3-7.7) k/uL Lymphocytes # (1.0-4.8) k/uL ABG pH 7.56 H* (7.35-7.45) ABG pO2 52 L* (83-108) mmHg ABG HCO3 32 H (21-25) mmol/L ABG Total CO2 33 H (19-24) mmol/L ABG O2 Saturation 89.7 L (94-97) % Sodium 133 L (137-145) mmol/L Potassium 2.7 L* (3.5-5.5) mmol/L Chloride 94 L (98-107) mmol/L Anion Gap (4.00-12.00) mmol/L Glucose 161 H (70-110) mg/dL POC Glucose (mg/dL) 179 H (75-99) mg/dL Calcium (8.7-10.3) mg/dL AST 71 H (17-59) U/L ALT 118 H (4-49) U/L Total Protein 6.1 L (6.3-8.2) g/dL Albumin 3.3 L (3.5-5.0) g/dL 03/15/21 03/15/21 03/16/21 Range/Units 17:33 20:25 00:56 WBC (3.8-10.6) k/uL Neutrophils # (1.3-7.7) k/uL Lymphocytes # (1.0-4.8) k/uL ABG pH (7.35-7.45) ABG pO2 (83-108) mmHg ABG HCO3 (21-25) mmol/L ABG Total CO2 (19-24) mmol/L ABG O2 Saturation (94-97) % Sodium (137-145) mmol/L Potassium 3.3 L 3.1 L (3.5-5.5) mmol/L Chloride (98-107) mmol/L Anion Gap (4.00-12.00) mmol/L Glucose (70-110) mg/dL POC Glucose (mg/dL) 167 H (75-99) mg/dL Calcium (8.7-10.3) mg/dL AST (17-59) U/L ALT (4-49) U/L Total Protein (6.3-8.2) g/dL Albumin (3.5-5.0) g/dL 03/16/21 Range/Units 07:19 WBC (3.8-10.6) k/uL Neutrophils # (1.3-7.7) k/uL Lymphocytes # (1.0-4.8) k/uL ABG pH (7.35-7.45) ABG pO2 (83-108) mmHg ABG HCO3 (21-25) mmol/L ABG Total CO2 (19-24) mmol/L ABG O2 Saturation (94-97) % Sodium (137-145) mmol/L Potassium (3.5-5.5) mmol/L Chloride (98-107) mmol/L Anion Gap (4.00-12.00) mmol/L Glucose (70-110) mg/dL POC Glucose (mg/dL) 162 H (75-99) mg/dL Calcium (8.7-10.3) mg/dL AST (17-59) U/L ALT (4-49) U/L Total Protein (6.3-8.2) g/dL Albumin (3.5-5.0) g/dL Microbiology - Last 24 Hours (Table) 03/10/21 22:50 Blood Culture - Preliminary Blood No Growth after 120 hours 03/10/21 23:10 Blood Culture - Preliminary Blood No Growth after 120 hours 03/15/21 17:16 Wound Culture - Preliminary Groin 03/15/21 17:16 Anaerobic Culture - Preliminary Genital 03/15/21 17:16 Urine Culture - Preliminary Urine,Catheterized
[2021-03-16 10:09] LABS: HCT 45.6 % (39.6-50.0); HGB 14.9 g/dL (13.0-17.0); MCH 27.5 pg (27.0-32.0); MCHC 32.7 g/dL (32.0-37.0); MCV 84.3 fL (80.0-97.0); Mean Platelet Volume 10.8 fL (9.5-12.2); Platelet Count 193 X 10*3/uL (140-440); RBC 5.41 X 10*6/uL (4.40-5.60); RDW 14.1 % (11.5-14.5); WBC 10.82 X 10*3/uL (4.50-10.00)
[2021-03-16 11:04] LABS: African American GFR (CKD) 109.4 (60.0-200.0); Anion Gap 18.6 mmol/L (4.00-12.00); BUN/Creat Ratio 12.75 Ratio (12.00-20.00); Blood Urea Nitrogen 10.2 mg/dL (9.0-27.0); Calcium 8.7 mg/dL (8.7-10.3); Carbon Dioxide 22.4 mmol/L (21.6-31.8); Non-African American GFR(CKD) 94.4 (60.0-200.0); Potassium 3.1 mmol/L (3.5-5.5)
[2021-03-16 11:05] LABS: Glucose,Whole Blood 226 mg/dL (75-99)
[2021-03-16 12:28] VITALS: BMI 47.1
[2021-03-16] MEDS: POTASSIUM CHLORIDE 10 MEQ in WATER FOR INJECTION 1 100ML.BAG IVPB SCH ×2 (13:07→14:18)
[2021-03-16 13:09] LABS: Basophils # (A) 0.06 X 10*3/uL (0.00-0.10); Basophils % (A) 0.6 %; Eosinophils # (A) 0.01 X 10*3/uL (0.04-0.35); Eosinophils % (A) 0.1 %; Lymphocytes # (A) 0.74 X 10*3/uL (0.90-5.00); Lymphocytes % (A) 6.8 %; Monocytes % (A) 16.6 %; Neutrophils # (A) 7.85 X 10*3/uL (1.80-7.70); Neutrophils % (A) 72.6 %
[2021-03-16 16:27] LABS: Glucose,Whole Blood 214 mg/dL (75-99)
--- NOTE | 2021-03-16 17:12 | P.PN ---
Subjective Progress Note Date: 03/16/21 Patient is much more alert and awake and cooperating with the examination. On asking about headache, patient states "I still got a little bit of headache". Still appears somewhat disinhibited, laying with down, but not covering his private parts. Patient is catheterized. Patient has very large scrotum visible. Objective - Vital Signs Vital signs: Vital Signs Temp 98.0 F 03/16/21 12:58 Pulse 94 03/16/21 12:58 Resp 35 H 03/16/21 12:58 BP 132/80 03/16/21 12:58 Pulse Ox 94 L 03/16/21 12:58 Intake & Output 03/15/21 03/16/21 03/16/21 18:59 06:59 18:59 Intake Total 200 Output Total 3600 1300 1500 Balance -3600 -1300 -1300 Weight 140.614 kg Intake: Oral 200 Output: Urine 3600 1300 1500 Other: Voiding Method Indwelling Catheter Indwelling Catheter Indwelling Catheter # Bowel Movements 1 1 - Exam Patient is alert and awake. He appears somewhat delirious. Patient knows it is February and the year is 2020 and that he is in [facility] and [place] in [place]. He knows name of the current president. Speech and language functions are normal. Face is symmetric and tongue protrudes the midline. Muscle strength is normal in the arms and legs distally and proximally. Patient cooperating well with the exam today. - Labs CBC & Chem 7: 03/16/21 03:43 03/16/21 03:42 Labs: Abnormal Lab Results - Last 24 Hours (Table) 03/15/21 03/15/21 03/16/21 Range/Units 17:33 20:25 00:56 WBC (4.50-10.00) X 10*3/uL Immature Gran # (0.00-0.04) X 10*3/uL Neutrophils # (1.80-7.70) X 10*3/uL Lymphocytes # (0.90-5.00) X 10*3/uL Monocytes # (0.20-1.00) X 10*3/uL Eosinophils # (0.04-0.35) X 10*3/uL Sodium (135-145) mmol/L Potassium 3.3 L 3.1 L (3.5-5.5) mmol/L Chloride (96-109) mmol/L Anion Gap (4.00-12.00) mmol/L Glucose (70-110) mg/dL POC Glucose (mg/dL) 167 H (75-99) mg/dL C-Reactive Protein (0.00-0.80) mg/dL Procalcitonin (0.02-0.09) ng/mL 03/16/21 03/16/21 03/16/21 Range/Units 03:42 03:43 03:43 WBC 10.82 H (4.50-10.00) X 10*3/uL Immature Gran # 0.36 H (0.00-0.04) X 10*3/uL Neutrophils # 7.85 H (1.80-7.70) X 10*3/uL Lymphocytes # 0.74 L (0.90-5.00) X 10*3/uL Monocytes # 1.80 H (0.20-1.00) X 10*3/uL Eosinophils # 0.01 L (0.04-0.35) X 10*3/uL Sodium 133 L (135-145) mmol/L Potassium 3.1 L (3.5-5.5) mmol/L Chloride 92 L (96-109) mmol/L Anion Gap 18.60 H (4.00-12.00) mmol/L Glucose 170 H (70-110) mg/dL POC Glucose (mg/dL) (75-99) mg/dL C-Reactive Protein 16.00 H (0.00-0.80) mg/dL Procalcitonin 0.18 H (0.02-0.09) ng/mL 03/16/21 03/16/21 03/16/21 Range/Units 07:19 11:04 16:25 WBC (4.50-10.00) X 10*3/uL Immature Gran # (0.00-0.04) X 10*3/uL Neutrophils # (1.80-7.70) X 10*3/uL Lymphocytes # (0.90-5.00) X 10*3/uL Monocytes # (0.20-1.00) X 10*3/uL Eosinophils # (0.04-0.35) X 10*3/uL Sodium (135-145) mmol/L Potassium (3.5-5.5) mmol/L Chloride (96-109) mmol/L Anion Gap (4.00-12.00) mmol/L Glucose (70-110) mg/dL POC Glucose (mg/dL) 162 H 226 H 214 H (75-99) mg/dL C-Reactive Protein (0.00-0.80) mg/dL Procalcitonin (0.02-0.09) ng/mL Microbiology - Last 24 Hours (Table) 03/15/21 17:16 Gram Stain - Preliminary Groin Wound Culture - Preliminary 03/10/21 22:50 Blood Culture - Preliminary Blood No Growth after 120 hours 03/10/21 23:10 Blood Culture - Preliminary Blood No Growth after 120 hours 03/15/21 17:16 Anaerobic Culture - Preliminary Genital 03/15/21 17:16 Urine Culture - Preliminary Urine,Catheterized Assessment and Plan Assessment: * Altered mental status, likely due to toxic metabolic encephalopathy. Causes multifactorial as below * UTI due to E. coli * Hyponatremia, hyponatremia, hypokalemia, metabolic alkalosis * Scrotal edema, hydrocele, rule out orchitis. * Elevated LFTs * Hypertension * Diabetes * Hyperlipidemia * History of BPH. Plan: * Patient did not cooperate with heavy line technician, therefore EEG was canceled. * Appreciate infectious disease input. Patient's mentation is much improved. * Repeat computed tomography scan of head 03/15/2021 shows no acute change. * Treatment of other medical conditions as per IM. * We will check B12, folate, TSH and vitamin B1. * We will follow sporadically
[2021-03-16 20:38] LABS: Glucose,Whole Blood 142 mg/dL (75-99)
--- NOTE | 2021-03-16 22:17 | PN ---
PROGRESS NOTE DATE OF SERVICE: 03/16/2021 REASON FOR FOLLOWUP: Urinary tract infection with . INTERVAL HISTORY: The patient is afebrile. The patient seems to be slightly alert today compared to yesterday unable to provide a reliable history. No vomiting, diarrhea or any other changes reported by the nursing staff. PHYSICAL EXAMINATION: Blood pressure 157/82 with a pulse of 98, temperature 98.8. He is 97% on 4 L nasal cannula. General description is a middle-aged male lying in bed in no distress. RESPIRATORY SYSTEM: Unlabored breathing. Clear to auscultation anteriorly. HEART: S1, S2. Regular rate and rhythm. ABDOMEN: Soft. No tenderness. Scrotal swelling and redness have slightly decreased. LABS: Hemoglobin is 14, white count 10.82, creatinine 0.8. Repeat culture so far pending. DIAGNOSTIC IMPRESSION AND PLAN: Patient with Escherichia coli urinary tract infection. Complaining of orchitis. Sensitive pathogen. Antibiotic will be adjusted to Rocephin 2 grams daily while monitoring clinical course closely. Continue supportive care. MMODL / IJN: [id number] /
--- NOTE | 2021-03-16 22:45 | P.PN ---
Subjective Progress Note Date: 03/16/21 Principal diagnosis: Leukocytosis/sepsis Altered mental status/toxic metabolic encephalopathy 65-year-old man, history of diabetes mellitus/hypertension, who arrives to be evaluated for suspected delirium. Most of the history comes from the patient's son as the patient believes he is delirious. Over the past couple of days he has had a change in urination reportedly urinating more frequently and having loss of continence. There may also been some low-grade fevers earlier. Today, patient's son arrived home from work and found the patient naked in the kitchen urinating there.. Workup in ED with a UA reveals positive nitrates, leukocyte esterase with WBCs and bacteria, lactic acid of 2.6, total bilirubin of 1.4, glucose 95, BUN/creatinine of 14/0.9; WBC is elevated at 20.6, hemoglobin 16.2 and hematocrit 48.2 with platelet count of 160 CT of the brain revealed cerebral atrophy with chronic white matter changes, no acute abnormality; chest x-ray reveals no acute process 03/13/2021 Patient is seen and evaluated in room at bedside; resting in bed and somewhat sleepy With O2 saturation 92% on room air Lab review shows WBC 9.5 which has trended down to 20.6 upon admission, hematocrit of 42.1, sodium 137,, potassium 3.2 Urine culture reveals gram-negative bacilli and final culture and sensitivity report is still pending; we will continue with current antibiotic therapy and adjust antibiotics once final culture and sensitivity report is available 03/14/2021 Patient seen and evaluated in room at bedside with daughter present in the room; patient is awake alert and oriented and denies any complaints Vital signs remained stable; labs are reviewed and are stable; urine culture and sensitivity completed; patient will be started transitioned to oral Bactrim to complete a total of 10 days of therapy and plan for outpatient follow-up; patient does have a Espinoza catheter which was placed due to urinary retention; we will DC Espinoza and monitor patient closely plans to consult urology if patient continues to have urinary retention versus discharge home and outpatient follow- up if no urinary concerns after discontinuing Espinoza 03/15/2021 Patient is seen and evaluated with nursing staff; remains completely confused; opens eyes to verbal stimulation but not oriented Vital signs are reviewed and stable with temperature of 96.5, pulse 68, respirations 16 and blood pressure 107/68 O2 saturation 97% on room air Significant findings on examination include marked swelling and erythema and induration of the scrotal sac with greenish yellow discharge around the Espinoza catheter site Patient did have CT of brain done upon admission which revealed cerebral atrophy with chronic white matter changes; we will hold off on repeat CT of head at this time and consult neurology for further recommendations Patient was switched to oral Bactrim in anticipation for discharge and has lost IV access as this time; we will consult ID for recommendations on antibiotics Order CBC, CRP and pro-calcitonin; we will order stat lactic acid levels 03/16/2021 Patient is seen and evaluated with nursing staff. Patient is slightly more alert today compared to yesterday's severe confusion. Nursing staff does not report any vomiting, diarrhea, or any other major or significant changes from yesterday. Vital signs are reviewed and stable except his BP of 157/82. Patient does not seem to be in any acute distress and no signs of labored breathing. Patient's urine cultures are positive for E.coli. Patent is also complaining of orchitis, scrotal swelling and redness have slightly decreased. Antibiotic has been adjusted to Recephin while patient is being closely mointored. Objective - Vital Signs Vital signs: Vital Signs Temp 99.5 F 03/16/21 09:49 Pulse 85 03/16/21 09:49 Resp 18 03/16/21 09:49 BP 133/64 03/16/21 09:49 Pulse Ox 93 L 03/16/21 09:49 Intake & Output 03/15/21 03/16/21 03/16/21 18:59 06:59 18:59 Intake Total 200 Output Total 3600 1300 Balance -3600 -1300 200 Weight 140.614 kg Intake: Oral 200 Output: Urine 3600 1300 Other: Voiding Method Indwelling Catheter Indwelling Catheter Indwelling Catheter # Bowel Movements 1 1 - Exam GENERAL: The patient is alert and oriented x3, not in any acute distress. Well developed, well nourished. HEENT: Pupils are round and equally reacting to light. EOMI. No scleral icterus. No conjunctival pallor. Normocephalic, atraumatic. No pharyngeal erythema. No thyromegaly. CARDIOVASCULAR: S1 and S2 present. No murmurs, rubs, or gallops. PULMONARY: Chest is clear to auscultation, no wheezing or crackles. ABDOMEN: Soft, nontender, nondistended, normoactive bowel sounds. No palpable organomegaly. MUSCULOSKELETAL: No joint swelling or deformity. EXTREMITIES: No cyanosis, clubbing, or pedal edema. NEUROLOGICAL: Gross neurological examination did not reveal any focal deficits. SKIN: No rashes. - Labs CBC & Chem 7: 03/16/21 03:43 03/16/21 03:42 Labs: Abnormal Lab Results - Last 24 Hours (Table) 03/15/21 03/15/21 03/15/21 Range/Units 06:36 12:59 12:59 WBC 11.2 H (3.8-10.6) k/uL Neutrophils # 9.2 H (1.3-7.7) k/uL Lymphocytes # 0.5 L (1.0-4.8) k/uL ABG pH (7.35-7.45) ABG pO2 (83-108) mmHg ABG HCO3 (21-25) mmol/L ABG Total CO2 (19-24) mmol/L ABG O2 Saturation (94-97) % Sodium 133 L (137-145) mmol/L Potassium 3.1 L 2.7 L* (3.5-5.5) mmol/L Chloride 94 L (98-107) mmol/L Anion Gap 15.40 H (4.00-12.00) mmol/L Glucose 162 H 161 H (70-110) mg/dL POC Glucose (mg/dL) (75-99) mg/dL Calcium 8.6 L (8.7-10.3) mg/dL AST 71 H (17-59) U/L ALT 118 H (4-49) U/L C-Reactive Protein (0.00-0.80) mg/dL Total Protein 6.1 L (6.3-8.2) g/dL Albumin 3.3 L (3.5-5.0) g/dL Procalcitonin (0.02-0.09) ng/mL 03/15/21 03/15/21 03/15/21 Range/Units 13:26 16:43 17:33 WBC (3.8-10.6) k/uL Neutrophils # (1.3-7.7) k/uL Lymphocytes # (1.0-4.8) k/uL ABG pH 7.56 H* (7.35-7.45) ABG pO2 52 L* (83-108) mmHg ABG HCO3 32 H (21-25) mmol/L ABG Total CO2 33 H (19-24) mmol/L ABG O2 Saturation 89.7 L (94-97) % Sodium (137-145) mmol/L Potassium 3.3 L (3.5-5.5) mmol/L Chloride (98-107) mmol/L Anion Gap (4.00-12.00) mmol/L Glucose (70-110) mg/dL POC Glucose (mg/dL) 179 H (75-99) mg/dL Calcium (8.7-10.3) mg/dL AST (17-59) U/L ALT (4-49) U/L C-Reactive Protein (0.00-0.80) mg/dL Total Protein (6.3-8.2) g/dL Albumin (3.5-5.0) g/dL Procalcitonin (0.02-0.09) ng/mL 03/15/21 03/16/21 03/16/21 Range/Units 20:25 00:56 03:42 WBC (3.8-10.6) k/uL Neutrophils # (1.3-7.7) k/uL Lymphocytes # (1.0-4.8) k/uL ABG pH (7.35-7.45) ABG pO2 (83-108) mmHg ABG HCO3 (21-25) mmol/L ABG Total CO2 (19-24) mmol/L ABG O2 Saturation (94-97) % Sodium 133 L (137-145) mmol/L Potassium 3.1 L 3.1 L (3.5-5.5) mmol/L Chloride 92 L (98-107) mmol/L Anion Gap 18.60 H (4.00-12.00) mmol/L Glucose 170 H (70-110) mg/dL POC Glucose (mg/dL) 167 H (75-99) mg/dL Calcium (8.7-10.3) mg/dL AST (17-59) U/L ALT (4-49) U/L C-Reactive Protein 16.00 H (0.00-0.80) mg/dL Total Protein (6.3-8.2) g/dL Albumin (3.5-5.0) g/dL Procalcitonin (0.02-0.09) ng/mL 03/16/21 03/16/21 03/16/21 Range/Units 03:43 03:43 07:19 WBC 10.82 H (3.8-10.6) k/uL Neutrophils # (1.3-7.7) k/uL Lymphocytes # (1.0-4.8) k/uL ABG pH (7.35-7.45) ABG pO2 (83-108) mmHg ABG HCO3 (21-25) mmol/L ABG Total CO2 (19-24) mmol/L ABG O2 Saturation (94-97) % Sodium (137-145) mmol/L Potassium (3.5-5.5) mmol/L Chloride (98-107) mmol/L Anion Gap (4.00-12.00) mmol/L Glucose (70-110) mg/dL POC Glucose (mg/dL) 162 H (75-99) mg/dL Calcium (8.7-10.3) mg/dL AST (17-59) U/L ALT (4-49) U/L C-Reactive Protein (0.00-0.80) mg/dL Total Protein (6.3-8.2) g/dL Albumin (3.5-5.0) g/dL Procalcitonin 0.18 H (0.02-0.09) ng/mL 03/16/21 Range/Units 11:04 WBC (3.8-10.6) k/uL Neutrophils # (1.3-7.7) k/uL Lymphocytes # (1.0-4.8) k/uL ABG pH (7.35-7.45) ABG pO2 (83-108) mmHg ABG HCO3 (21-25) mmol/L ABG Total CO2 (19-24) mmol/L ABG O2 Saturation (94-97) % Sodium (137-145) mmol/L Potassium (3.5-5.5) mmol/L Chloride (98-107) mmol/L Anion Gap (4.00-12.00) mmol/L Glucose (70-110) mg/dL POC Glucose (mg/dL) 226 H (75-99) mg/dL Calcium (8.7-10.3) mg/dL AST (17-59) U/L ALT (4-49) U/L C-Reactive Protein (0.00-0.80) mg/dL Total Protein (6.3-8.2) g/dL Albumin (3.5-5.0) g/dL Procalcitonin (0.02-0.09) ng/mL Microbiology - Last 24 Hours (Table) 03/15/21 17:16 Gram Stain - Preliminary Groin Wound Culture - Preliminary 03/10/21 22:50 Blood Culture - Preliminary Blood No Growth after 120 hours 03/10/21 23:10 Blood Culture - Preliminary Blood No Growth after 120 hours 03/15/21 17:16 Anaerobic Culture - Preliminary Genital 03/15/21 17:16 Urine Culture - Preliminary Urine,Catheterized Assessment and Plan Assessment: 1. Leukocytosis/sepsis - As indicated by elevated WBC, lactic acid level, tachycardia and tachypnea, altered mental status - Patient has been placed on IV Zosyn 3.375 g IV every 8 hours; blood cultures and urine cultures obtained and pending - We will monitor CBC, CRP and pro-calcitonin; consult ID for further recommendations 2. Altered mental status/toxic metabolic encephalopathy - Lactic acidosis/sepsis/UTI; patient has been placed on IV fluids we will trend and monitor lactic acid levels; Continue with further sepsis workup if lactic acid levels continue to trend up; Consult ID if no improvement with current treatment 3. Hypertension; continue home dose of Lotrel then40 mg daily, Hydrea Diuril 25 mg daily, Lasix 20 mg daily 4. Diabetes mellitus type 1; continue with Lantus 50 units subcu daily at bedtime, NovoLog 20 units every before meals 3 times a day; hold off of metformin while inpatient 5. Hyperlipidemia; Lipitor 20 mg by mouth daily at bedtime 6. BPH; Flomax 0.8 mg daily 7. Depression; continue with Wellbutrin and Lexapro DVT prophylaxis; SCDs/subcu heparin CODE STATUS; full code
[2021-03-17] MEDS: hydrALAZINE HCL 25 MG TAB PO SCH ×3 (00:03→23:03)
[2021-03-17] MEDS: INSULIN DETEMIR (LEVEMIR) 100 UNIT/ML SYR SQ SCH ×2 (00:03→23:03)
[2021-03-17] MEDS: ACETAMINOPHEN TAB 325 MG TAB PO PRN (00:04)
[2021-03-17] MEDS: buPROPion SR 150 MG TABLET.ER PO SCH ×3 (00:04→23:04)
[2021-03-17] MEDS: FAMOTIDINE 20 MG TAB PO SCH ×3 (00:04→23:03)
[2021-03-17 02:46] LABS: Folate, Serum 5.2 ng/mL (4.40-31.00)
[2021-03-17] MEDS: SODIUM CHLORIDE 0.9% 1,000 ML IV SCH ×3 (05:20→17:07)
[2021-03-17] MEDS: FUROSEMIDE 20 MG TAB PO SCH (07:59)
[2021-03-17] MEDS: lisinopriL 20 MG TAB PO SCH (07:59)
[2021-03-17] MEDS: TAMSULOSIN 0.4 MG CAP.ER.24H PO SCH (08:00)
[2021-03-17] MEDS: ATORVASTATIN 20 MG TAB PO SCH (08:00)
[2021-03-17] MEDS: hydroCHLOROthiazide 25 MG TAB PO SCH (08:00)
[2021-03-17] MEDS: ESCITALOPRAM 20 MG TAB PO SCH (08:00)
[2021-03-17] MEDS: amLODIPine 10 MG TAB PO SCH (08:00)
[2021-03-17] MEDS: INSULIN ASPART (NovoLOG) 100 UNIT/ML VIAL SQ SCH ×4 (08:01→17:07)
[2021-03-17 08:07] LABS: Glucose,Whole Blood 86 mg/dL (75-99)
--- NOTE | 2021-03-17 09:37 | P.PN ---
Subjective Progress Note Date: 03/17/21 The patient is in the hospital with urinary tract infection with sepsis epididymal orchitis. He is improving with antibiotics. Today's exam is much better than yesterday. The tenderness is markedly decreased. The scrotal swelling is decreased. I recommend continued antibiotics. The catheter can probably be removed in the next 24 hours now that his mental status is improving. I'll have him remove in the morning. Objective - Vital Signs Vital signs: Vital Signs Temp 97.7 F 03/17/21 08:00 Pulse 77 03/17/21 08:00 Resp 16 03/17/21 08:00 BP 148/78 03/17/21 08:00 Pulse Ox 91 L 03/17/21 08:00 Intake & Output 03/16/21 03/17/21 03/17/21 18:59 06:59 18:59 Intake Total 200 300 Output Total 1500 2300 Balance -1300 -2000 Weight 140.614 kg Intake: Intake, IV Titration 100 Amount Potassium Chloride 10 meq 100 In Water For Injection 1 100ml.bag @ 100 mls/hr IVPB Q1H [facility] Rx#: [id number] Oral 200 200 Output: Urine 1500 2300 Other: Voiding Method Indwelling Catheter Indwelling Catheter Indwelling Catheter # Voids 0 # Bowel Movements 1 0 - Labs CBC & Chem 7: 03/16/21 03:43 03/16/21 03:42 Labs: Abnormal Lab Results - Last 24 Hours (Table) 03/16/21 03/16/21 03/16/21 Range/Units 03:42 03:43 03:43 WBC 10.82 H (4.50-10.00) X 10*3/uL Immature Gran # 0.36 H (0.00-0.04) X 10*3/uL Neutrophils # 7.85 H (1.80-7.70) X 10*3/uL Lymphocytes # 0.74 L (0.90-5.00) X 10*3/uL Monocytes # 1.80 H (0.20-1.00) X 10*3/uL Eosinophils # 0.01 L (0.04-0.35) X 10*3/uL Sodium 133 L (135-145) mmol/L Potassium 3.1 L (3.5-5.5) mmol/L Chloride 92 L (96-109) mmol/L Anion Gap 18.60 H (4.00-12.00) mmol/L Glucose 170 H (70-110) mg/dL POC Glucose (mg/dL) (75-99) mg/dL C-Reactive Protein 16.00 H (0.00-0.80) mg/dL Procalcitonin 0.18 H (0.02-0.09) ng/mL 03/16/21 03/16/21 03/16/21 Range/Units 11:04 16:25 20:35 WBC (4.50-10.00) X 10*3/uL Immature Gran # (0.00-0.04) X 10*3/uL Neutrophils # (1.80-7.70) X 10*3/uL Lymphocytes # (0.90-5.00) X 10*3/uL Monocytes # (0.20-1.00) X 10*3/uL Eosinophils # (0.04-0.35) X 10*3/uL Sodium (135-145) mmol/L Potassium (3.5-5.5) mmol/L Chloride (96-109) mmol/L Anion Gap (4.00-12.00) mmol/L Glucose (70-110) mg/dL POC Glucose (mg/dL) 226 H 214 H 142 H (75-99) mg/dL C-Reactive Protein (0.00-0.80) mg/dL Procalcitonin (0.02-0.09) ng/mL Microbiology - Last 24 Hours (Table) 03/10/21 23:10 Blood Culture - Final Blood No Growth after 144 hours 03/10/21 22:50 Blood Culture - Final Blood No Growth after 144 hours 03/15/21 17:16 Gram Stain - Preliminary Groin Wound Culture - Preliminary Gram Neg Bacilli Paige albicans 03/15/21 17:16 Urine Culture - Final Urine,Catheterized 03/15/21 17:26 Blood Culture - Preliminary Blood No Growth after 24 hours
[2021-03-17] MEDS: FOLIC ACID 1 MG TAB PO SCH (09:48)
[2021-03-17 10:40] LABS: African American GFR (CKD) >90 (>60 ml/min/1.73 sqM); Anion Gap 7 mmol/L; Blood Urea Nitrogen 15 mg/dL (9-20); Calcium 8.6 mg/dL (8.4-10.2); Carbon Dioxide 29 mmol/L (22-30); Chloride 96 mmol/L (98-107); Glucose 151 mg/dL (74-99); Non-African American GFR(CKD) >90 (>60 ml/min/1.73 sqM); Sodium 132 mmol/L (137-145)
[2021-03-17 10:46] LABS: Basophils # (A) 0.1 k/uL (0-0.2); Basophils % (A) 1 %; Eosinophils % (A) 0 %; HCT 44.4 % (39.0-53.0); HGB 14.5 gm/dL (13.0-17.5); Lymphocytes # (A) 0.6 k/uL (1.0-4.8); Lymphocytes % (A) 6 %; MCH 28.4 pg (25.0-35.0); MCHC 32.6 g/dL (31.0-37.0); MCV 87.2 fL (80.0-100.0); Mean Platelet Volume 8.7; Monocytes # (A) 0.7 k/uL (0-1.0); Monocytes % (A) 7 %; Neutrophils # (A) 7.9 k/uL (1.3-7.7); Neutrophils % (A) 82 %; Platelet Count 203 k/uL (150-450); RBC 5.09 m/uL (4.30-5.90); RDW 13.8 % (11.5-15.5); WBC 9.7 k/uL (3.8-10.6)
[2021-03-17 11:22] LABS: C Reactive Protein 17.6 mg/dL (<1.0)
[2021-03-17] MEDS ORDERED: Potassium Replacement Protocol 1 EACH MISC MISCELLANE PRN (11:28)
[2021-03-17 11:42] LABS: Glucose,Whole Blood 131 mg/dL (75-99)
[2021-03-17] MEDS: POTASSIUM CHLORIDE ER 20 MEQ TAB.ER PO SCH ×2 (11:46→12:54)
[2021-03-17 16:47] LABS: Glucose,Whole Blood 212 mg/dL (75-99)
[2021-03-17 21:37] LABS: Glucose,Whole Blood 265 mg/dL (75-99)
--- NOTE | 2021-03-17 21:56 | PN ---
PROGRESS NOTE DATE OF SERVICE: 03/17/2021 REASON FOR FOLLOWUP: E coli UTI and orchitis. INTERVAL HISTORY: The patient is afebrile. The patient is slightly more awake and alert today. The patient is breathing comfortably. When asked denies any chest pain or cough. No abdominal pain and no diarrhea. PHYSICAL EXAMINATION: Blood pressure is 117/69, pulse of 83, temperature 98.3. He is 94% on 3 L nasal cannula. General description is a middle-aged male lying in bed in no distress. RESPIRATORY SYSTEM: Unlabored breathing. Decreased intensity of breath sounds. No wheeze. HEART: S1, S2. Regular rate and rhythm. ABDOMEN: Soft. No tenderness. EXTREMITIES: No edema of the feet. LABS: Hemoglobin is 14.5, white count 9.7, creatinine 0.77. DIAGNOSTIC IMPRESSION AND PLAN: Patient with Escherichia coli urinary tract infection with orchitis covered with Rocephin 2 grams daily; to continue while monitoring his clinical course closely. Continue with supportive care. MMODL / IJN: [id number] /
[2021-03-18] MEDS: SODIUM CHLORIDE 0.9% 1,000 ML IV SCH ×4 (05:27→21:21)
[2021-03-18 06:58] LABS: Glucose,Whole Blood 171 mg/dL (75-99)
[2021-03-18] MEDS: hydrALAZINE HCL 25 MG TAB PO SCH ×2 (07:03→21:21)
[2021-03-18] MEDS: hydroCHLOROthiazide 25 MG TAB PO SCH (07:03)
[2021-03-18] MEDS: lisinopriL 20 MG TAB PO SCH (07:04)
[2021-03-18] MEDS: ESCITALOPRAM 20 MG TAB PO SCH (07:05)
[2021-03-18] MEDS: amLODIPine 10 MG TAB PO SCH (07:05)
[2021-03-18] MEDS: FUROSEMIDE 20 MG TAB PO SCH (07:05)
[2021-03-18] MEDS: ATORVASTATIN 20 MG TAB PO SCH (07:05)
[2021-03-18] MEDS: FOLIC ACID 1 MG TAB PO SCH (07:05)
[2021-03-18] MEDS: TAMSULOSIN 0.4 MG CAP.ER.24H PO SCH (07:05)
[2021-03-18] MEDS: FAMOTIDINE 20 MG TAB PO SCH ×2 (07:05→21:21)
[2021-03-18] MEDS: buPROPion SR 150 MG TABLET.ER PO SCH ×2 (07:06→21:21)
[2021-03-18] MEDS: INSULIN ASPART (NovoLOG) 100 UNIT/ML VIAL SQ SCH ×3 (07:07→16:58)
--- NOTE | 2021-03-18 08:12 | P.PN ---
Subjective Progress Note Date: 03/18/21 patient in the hospital for uti with sepsis, epididymorchitis He is improving with ab. The cath will be pulled today to see if he can void. He'll need to be seen in follow-up in my office. We'll evaluate his prostate at that point in time. Objective - Vital Signs Vital signs: Vital Signs Temp 98.1 F 03/18/21 02:07 Pulse 80 03/18/21 02:07 Resp 22 03/17/21 20:00 BP 129/78 03/18/21 02:07 Pulse Ox 94 L 03/18/21 02:07 Intake & Output 03/17/21 03/18/21 03/18/21 18:59 06:59 18:59 Intake Total 1080 Output Total 1700 Balance 1080 -1700 Intake: Oral 1080 Output: Urine 1700 Other: Voiding Method Indwelling Catheter Indwelling Catheter # Voids 2 # Bowel Movements 1 - Labs CBC & Chem 7: 03/17/21 10:03 03/17/21 10:03 Labs: Abnormal Lab Results - Last 24 Hours (Table) 03/17/21 03/17/21 03/17/21 Range/Units 10:03 10:03 10:03 Neutrophils # 7.9 H (1.3-7.7) k/uL Lymphocytes # 0.6 L (1.0-4.8) k/uL Sodium 132 L (137-145) mmol/L Potassium 3.0 L (3.5-5.1) mmol/L Chloride 96 L (98-107) mmol/L Glucose 151 H (74-99) mg/dL POC Glucose (mg/dL) (75-99) mg/dL C-Reactive Protein 17.6 H (<1.0) mg/dL Procalcitonin 0.19 H (0.02-0.09) ng/mL 03/17/21 03/17/21 03/17/21 Range/Units 11:39 16:45 21:34 Neutrophils # (1.3-7.7) k/uL Lymphocytes # (1.0-4.8) k/uL Sodium (137-145) mmol/L Potassium (3.5-5.1) mmol/L Chloride (98-107) mmol/L Glucose (74-99) mg/dL POC Glucose (mg/dL) 131 H 212 H 265 H (75-99) mg/dL C-Reactive Protein (<1.0) mg/dL Procalcitonin (0.02-0.09) ng/mL 03/18/21 Range/Units 06:52 Neutrophils # (1.3-7.7) k/uL Lymphocytes # (1.0-4.8) k/uL Sodium (137-145) mmol/L Potassium (3.5-5.1) mmol/L Chloride (98-107) mmol/L Glucose (74-99) mg/dL POC Glucose (mg/dL) 171 H (75-99) mg/dL C-Reactive Protein (<1.0) mg/dL Procalcitonin (0.02-0.09) ng/mL Microbiology - Last 24 Hours (Table) 03/15/21 17:16 Anaerobic Culture - Preliminary Genital 03/15/21 17:16 Gram Stain - Final Groin Wound Culture - Final Escherichia coli Paige albicans 03/15/21 17:26 Blood Culture - Preliminary Blood No Growth after 48 hours
--- NOTE | 2021-03-18 10:43 | P.PN ---
Subjective Progress Note Date: 03/17/21 This is a Tele-neurology follow-up performed today on 03/17/2021. Patient is much more alert and awake and cooperating with the examination. On asking about headache, patient states "a little headache", but rate it at 6/10. Patient is slightly congested, Still appears somewhat disinhibited, laying down, but not covering his private parts. Patient denies any ear pain. Objective - Vital Signs Vital signs: Vital Signs Temp 98.4 F 03/17/21 14:00 Pulse 81 03/17/21 14:00 Resp 18 03/17/21 14:00 BP 126/76 03/17/21 14:00 Pulse Ox 94 L 03/17/21 14:00 Intake & Output 03/16/21 03/17/21 03/17/21 18:59 06:59 18:59 Intake Total 200 300 Output Total 1500 2300 Balance -1300 -2000 Weight 140.614 kg Intake: Intake, IV Titration 100 Amount Potassium Chloride 10 meq 100 In Water For Injection 1 100ml.bag @ 100 mls/hr IVPB Q1H [facility] Rx#: [id number] Oral 200 200 Output: Urine 1500 2300 Other: Voiding Method Indwelling Catheter Indwelling Catheter Indwelling Catheter # Voids 0 # Bowel Movements 1 0 - Exam Patient is alert and awake. He appears less delirious. Patient states it is February 2021 and that he is in [facility]. Speech and language functions are normal. Face is symmetric and tongue protrudes the midline. Muscle strength is normal in the arms and legs distally and proximally. - Labs CBC & Chem 7: 03/19/21 09:22 03/19/21 13:19 Labs: Abnormal Lab Results - Last 24 Hours (Table) 03/16/21 03/16/21 03/17/21 Range/Units 16:25 20:35 10:03 Neutrophils # 7.9 H (1.3-7.7) k/uL Lymphocytes # 0.6 L (1.0-4.8) k/uL Sodium (137-145) mmol/L Potassium (3.5-5.1) mmol/L Chloride (98-107) mmol/L Glucose (74-99) mg/dL POC Glucose (mg/dL) 214 H 142 H (75-99) mg/dL C-Reactive Protein (<1.0) mg/dL 03/17/21 03/17/21 Range/Units 10:03 11:39 Neutrophils # (1.3-7.7) k/uL Lymphocytes # (1.0-4.8) k/uL Sodium 132 L (137-145) mmol/L Potassium 3.0 L (3.5-5.1) mmol/L Chloride 96 L (98-107) mmol/L Glucose 151 H (74-99) mg/dL POC Glucose (mg/dL) 131 H (75-99) mg/dL C-Reactive Protein 17.6 H (<1.0) mg/dL Microbiology - Last 24 Hours (Table) 03/10/21 23:10 Blood Culture - Final Blood No Growth after 144 hours 03/10/21 22:50 Blood Culture - Final Blood No Growth after 144 hours 03/15/21 17:16 Gram Stain - Preliminary Groin Wound Culture - Preliminary Gram Neg Bacilli Paige albicans 03/15/21 17:16 Urine Culture - Final Urine,Catheterized 03/15/21 17:26 Blood Culture - Preliminary Blood No Growth after 24 hours Assessment and Plan Assessment: * Altered mental status, likely due to toxic metabolic encephalopathy. Causes multifactorial as below * UTI due to E. coli * Hyponatremia, hyponatremia, hypokalemia, metabolic alkalosis * Scrotal edema, hydrocele, rule out orchitis. * Folate deficiency * Elevated LFTs * Hypertension * Diabetes * Hyperlipidemia * History of BPH. Plan: * Patient did not cooperate with cardiothoracic anesthesia technician, therefore EEG was canceled. * Patient's mentation is much improved. * Infectious disease following. Patient currently on ceftriaxone 2 g every 24 hours for E. coli UTI and orchitis. * Repeat computed tomography scan of head 03/15/2021 shows no acute change. * Treatment of other medical conditions as per IM. * B12 873, folate 5.2, TSH 0.635 normal. We will start folate replacement. V itamin B1 52, normal. * Neurologically patient is stable. Dr. Juan Santoro Will resume neurology service from 03/19/2021. Please reconsult neurology if any concerns.
[2021-03-18 11:27] LABS: Glucose,Whole Blood 108 mg/dL (75-99)
[2021-03-18 12:46] LABS: African American GFR (CKD) 109.6 (60.0-200.0); Anion Gap 12.7 mmol/L (4.00-12.00); BUN/Creat Ratio 15.58 Ratio (12.00-20.00); Blood Urea Nitrogen 12.4 mg/dL (9.0-27.0); Calcium 8.4 mg/dL (8.7-10.3); Carbon Dioxide 24.7 mmol/L (21.6-31.8); Non-African American GFR(CKD) 94.6 (60.0-200.0); Potassium 3.3 mmol/L (3.5-5.5)
[2021-03-18] MEDS ORDERED: Potassium Replacement Protocol 1 EACH MISC MISCELLANE PRN (12:47)
[2021-03-18] MEDS: POTASSIUM CHLORIDE ER 20 MEQ TAB.ER PO SCH ×2 (13:20→15:26)
[2021-03-18 16:25] LABS: Glucose,Whole Blood 163 mg/dL (75-99)
[2021-03-18] MEDS ORDERED: ALPRAZolam 0.25 MG TAB PO STA (19:47)
[2021-03-18 19:57] LABS: Glucose,Whole Blood 128 mg/dL (75-99)
[2021-03-18] MEDS: INSULIN DETEMIR (LEVEMIR) 100 UNIT/ML SYR SQ SCH (21:21)
--- NOTE | 2021-03-18 21:49 | P.PN ---
Subjective Progress Note Date: 03/17/21 Principal diagnosis: Leukocytosis/sepsis/UTI Altered mental status/toxic metabolic encephalopathy Epididymorchitis 65-year-old man, history of diabetes mellitus/hypertension, who arrives to be evaluated for suspected delirium. Most of the history comes from the patient's son as the patient believes he is delirious. Over the past couple of days he h as had a change in urination reportedly urinating more frequently and having loss of continence. There may also been some low-grade fevers earlier. Today, patient's son arrived home from work and found the patient naked in the kitchen urinating there.. Workup in ED with a UA reveals positive nitrates, leukocyte esterase with WBCs and bacteria, lactic acid of 2.6, total bilirubin of 1.4, glucose 95, BUN/creatinine of 14/0.9; WBC is elevated at 20.6, hemoglobin 16.2 and hematocrit 48.2 with platelet count of 160 CT of the brain revealed cerebral atrophy with chronic white matter changes, no acute abnormality; chest x-ray reveals no acute process 03/13/2021 Patient is seen and evaluated in room at bedside; resting in bed and somewhat sleepy With O2 saturation 92% on room air Lab review shows WBC 9.5 which has trended down to 20.6 upon admission, hematocrit of 42.1, sodium 137,, potassium 3.2 Urine culture reveals gram-negative bacilli and final culture and sensitivity report is still pending; we will continue with current antibiotic therapy and adjust antibiotics once final culture and sensitivity report is available 03/14/2021 Patient seen and evaluated in room at bedside with daughter present in the room; patient is awake alert and oriented and denies any complaints Vital signs remained stable; labs are reviewed and are stable; urine culture and sensitivity completed; patient will be started transitioned to oral Bactrim to complete a total of 10 days of therapy and plan for outpatient follow-up; patient does have a Espinoza catheter which was placed due to urinary retention; we will DC Espinoza and monitor patient closely plans to consult urology if patient continues to have urinary retention versus discharge home and outpatient follow- up if no urinary concerns after discontinuing Espinoza 03/15/2021 Patient is seen and evaluated with nursing staff; remains completely confused; opens eyes to verbal stimulation but not oriented Vital signs are reviewed and stable with temperature of 96.5, pulse 68, respirations 16 and blood pressure 107/68 O2 saturation 97% on room air Significant findings on examination include marked swelling and erythema and induration of the scrotal sac with greenish yellow discharge around the Espinoza catheter site Patient did have CT of brain done upon admission which revealed cerebral atrophy with chronic white matter changes; we will hold off on repeat CT of head at this time and consult neurology for further recommendations Patient was switched to oral Bactrim in anticipation for discharge and has lost IV access as this time; we will consult ID for recommendations on antibiotics Order CBC, CRP and pro-calcitonin; we will order stat lactic acid levels 03/16/2021 Patient is seen and evaluated with nursing staff. Patient is slightly more alert today compared to yesterday's severe confusion. Nursing staff does not report any vomiting, diarrhea, or any other major or significant changes from yesterday. Vital signs are reviewed and stable except his BP of 157/82. Patient does not seem to be in any acute distress and no signs of labored breathing. Patient's urine cultures are positive for E.coli. Patent is also complaining of orchitis, scrotal swelling and redness have slightly decreased. Antibiotic has been adjusted to Recephin while patient is being closely mointored. 03/17/2021 Patient is seen and evaluated in room at bedside; patient is more alert and responsive this morning Vital signs are reviewed and stable with temperature 98.4, pulse 81, respiration 18 and blood pressure 126/76 Laboratory review shows sodium 132, potassium 3.0, BUN 15/creatinine of 0.77 Neurology on board and had recommended EEG which has been canceled because of patient's inability to cooperate; patient is currently on IV antibiotics for E. coli UTI along with epididymal orchitis; urology on board and recommending to continue with IV antibiotics in form of ceftriaxone 2 g every 24 hours ID is managing IV antibiotics and has not recommended to switch to oral antibiotics at this point Objective - Vital Signs Vital signs: Vital Signs Temp 97.7 F 03/17/21 08:00 Pulse 77 03/17/21 08:00 Resp 16 03/17/21 08:00 BP 148/78 03/17/21 08:00 Pulse Ox 91 L 03/17/21 08:00 Intake & Output 03/16/21 03/17/21 03/17/21 18:59 06:59 18:59 Intake Total 200 300 Output Total 1500 2300 Balance -1300 -2000 Weight 140.614 kg Intake: Intake, IV Titration 100 Amount Potassium Chloride 10 meq 100 In Water For Injection 1 100ml.bag @ 100 mls/hr IVPB Q1H [facility] Rx#: [id number] Oral 200 200 Output: Urine 1500 2300 Other: Voiding Method Indwelling Catheter Indwelling Catheter Indwelling Catheter # Voids 0 # Bowel Movements 1 0 - Exam GENERAL: The patient is alert and oriented x3, not in any acute distress. Well developed, well nourished. HEENT: Pupils are round and equally reacting to light. EOMI. No scleral icterus. No conjunctival pallor. Normocephalic, atraumatic. No pharyngeal erythema. No thyromegaly. CARDIOVASCULAR: S1 and S2 present. No murmurs, rubs, or gallops. PULMONARY: Chest is clear to auscultation, no wheezing or crackles. ABDOMEN: Soft, nontender, nondistended, normoactive bowel sounds. No palpable organomegaly. MUSCULOSKELETAL: No joint swelling or deformity. EXTREMITIES: No cyanosis, clubbing, or pedal edema. NEUROLOGICAL: Gross neurological examination did not reveal any focal deficits. SKIN: No rashes. - Labs CBC & Chem 7: 03/17/21 10:03 03/18/21 08:18 Labs: Abnormal Lab Results - Last 24 Hours (Table) 03/16/21 03/16/21 03/17/21 Range/Units 16:25 20:35 10:03 Neutrophils # 7.9 H (1.3-7.7) k/uL Lymphocytes # 0.6 L (1.0-4.8) k/uL Sodium (137-145) mmol/L Potassium (3.5-5.1) mmol/L Chloride (98-107) mmol/L Glucose (74-99) mg/dL POC Glucose (mg/dL) 214 H 142 H (75-99) mg/dL C-Reactive Protein (<1.0) mg/dL 03/17/21 03/17/21 Range/Units 10:03 11:39 Neutrophils # (1.3-7.7) k/uL Lymphocytes # (1.0-4.8) k/uL Sodium 132 L (137-145) mmol/L Potassium 3.0 L (3.5-5.1) mmol/L Chloride 96 L (98-107) mmol/L Glucose 151 H (74-99) mg/dL POC Glucose (mg/dL) 131 H (75-99) mg/dL C-Reactive Protein 17.6 H (<1.0) mg/dL Microbiology - Last 24 Hours (Table) 03/10/21 23:10 Blood Culture - Final Blood No Growth after 144 hours 03/10/21 22:50 Blood Culture - Final Blood No Growth after 144 hours 03/15/21 17:16 Gram Stain - Preliminary Groin Wound Culture - Preliminary Gram Neg Bacilli Paige albicans 03/15/21 17:16 Urine Culture - Final Urine,Catheterized 03/15/21 17:26 Blood Culture - Preliminary Blood No Growth after 24 hours Assessment and Plan Assessment: 1. Leukocytosis/sepsis - As indicated by elevated WBC, lactic acid level, tachycardia and tachypnea, altered mental status - Patient has been placed on IV Zosyn 3.375 g IV every 8 hours; blood cultures and urine cultures obtained and pending - We will monitor CBC, CRP and pro-calcitonin; consult ID for further recommendations 2. Altered mental status/toxic metabolic encephalopathy - Lactic acidosis/sepsis/UTI; patient has been placed on IV fluids we will trend and monitor lactic acid levels; Continue with further sepsis workup if lactic acid levels continue to trend up; Consult ID if no improvement with current treatment 3. Hypertension; continue home dose of Lotrel then40 mg daily, Hydrea Diuril 25 mg daily, Lasix 20 mg daily 4. Diabetes mellitus type 1; continue with Lantus 50 units subcu daily at bedtime, NovoLog 20 units every before meals 3 times a day; hold off of metformin while inpatient 5. Hyperlipidemia; Lipitor 20 mg by mouth daily at bedtime 6. BPH; Flomax 0.8 mg daily 7. Depression; continue with Wellbutrin and Lexapro DVT prophylaxis; SCDs/subcu heparin CODE STATUS; full code
--- NOTE | 2021-03-18 21:51 | P.PN ---
Subjective Progress Note Date: 03/18/21 Principal diagnosis: Leukocytosis/sepsis/UTI Altered mental status/toxic metabolic encephalopathy Epididymorchitis 65-year-old man, history of diabetes mellitus/hypertension, who arrives to be evaluated for suspected delirium. Most of the history comes from the patient's son as the patient believes he is delirious. Over the past couple of days he h as had a change in urination reportedly urinating more frequently and having loss of continence. There may also been some low-grade fevers earlier. Today, patient's son arrived home from work and found the patient naked in the kitchen urinating there.. Workup in ED with a UA reveals positive nitrates, leukocyte esterase with WBCs and bacteria, lactic acid of 2.6, total bilirubin of 1.4, glucose 95, BUN/creatinine of 14/0.9; WBC is elevated at 20.6, hemoglobin 16.2 and hematocrit 48.2 with platelet count of 160 CT of the brain revealed cerebral atrophy with chronic white matter changes, no acute abnormality; chest x-ray reveals no acute process 03/13/2021 Patient is seen and evaluated in room at bedside; resting in bed and somewhat sleepy With O2 saturation 92% on room air Lab review shows WBC 9.5 which has trended down to 20.6 upon admission, hematocrit of 42.1, sodium 137,, potassium 3.2 Urine culture reveals gram-negative bacilli and final culture and sensitivity report is still pending; we will continue with current antibiotic therapy and adjust antibiotics once final culture and sensitivity report is available 03/14/2021 Patient seen and evaluated in room at bedside with daughter present in the room; patient is awake alert and oriented and denies any complaints Vital signs remained stable; labs are reviewed and are stable; urine culture and sensitivity completed; patient will be started transitioned to oral Bactrim to complete a total of 10 days of therapy and plan for outpatient follow-up; patient does have a Espinoza catheter which was placed due to urinary retention; we will DC Espinoza and monitor patient closely plans to consult urology if patient continues to have urinary retention versus discharge home and outpatient follow- up if no urinary concerns after discontinuing Espinoza 03/15/2021 Patient is seen and evaluated with nursing staff; remains completely confused; opens eyes to verbal stimulation but not oriented Vital signs are reviewed and stable with temperature of 96.5, pulse 68, respirations 16 and blood pressure 107/68 O2 saturation 97% on room air Significant findings on examination include marked swelling and erythema and induration of the scrotal sac with greenish yellow discharge around the Espinoza catheter site Patient did have CT of brain done upon admission which revealed cerebral atrophy with chronic white matter changes; we will hold off on repeat CT of head at this time and consult neurology for further recommendations Patient was switched to oral Bactrim in anticipation for discharge and has lost IV access as this time; we will consult ID for recommendations on antibiotics Order CBC, CRP and pro-calcitonin; we will order stat lactic acid levels 03/16/2021 Patient is seen and evaluated with nursing staff. Patient is slightly more alert today compared to yesterday's severe confusion. Nursing staff does not report any vomiting, diarrhea, or any other major or significant changes from yesterday. Vital signs are reviewed and stable except his BP of 157/82. Patient does not seem to be in any acute distress and no signs of labored breathing. Patient's urine cultures are positive for E.coli. Patent is also complaining of orchitis, scrotal swelling and redness have slightly decreased. Antibiotic has been adjusted to Recephin while patient is being closely mointored. 03/17/2021 Patient is seen and evaluated in room at bedside; patient is more alert and responsive this morning Vital signs are reviewed and stable with temperature 98.4, pulse 81, respiration 18 and blood pressure 126/76 Laboratory review shows sodium 132, potassium 3.0, BUN 15/creatinine of 0.77 Neurology on board and had recommended EEG which has been canceled because of patient's inability to cooperate; patient is currently on IV antibiotics for E. coli UTI along with epididymal orchitis; urology on board and recommending to continue with IV antibiotics in form of ceftriaxone 2 g every 24 hours ID is managing IV antibiotics and has not recommended to switch to oral antibiotics at this point 03/18/2021 Patient is seen and evaluated ambulating to the bathroom; remains quite unsteady on feet Vital signs are reviewed temperature 98.8, pulse 82, respiration 20 and blood pressure 150/81; currently on 3 L O2 per nasal cannula saturating 91% Lab review shows sodium 136, potassium 3.3, BUN/creatinine of 12 wait for/0.8; blood glucose remained stable; CRP remains elevated and has slightly trended up at 17.6 this morning; IDs recommending to continue with IV ceftriaxone 2 g every 24 hours PT/OT consulted to help with discharge planning Objective - Vital Signs Vital signs: Vital Signs Temp 99.8 F H 03/18/21 14:00 Pulse 82 03/18/21 14:00 Resp 20 03/18/21 14:00 BP 150/81 03/18/21 14:00 Pulse Ox 91 L 03/18/21 14:00 Intake & Output 03/17/21 03/18/21 03/18/21 18:59 06:59 18:59 Intake Total 1080 Output Total 1700 1000 Balance 1080 -1700 -1000 Intake: Oral 1080 Output: Urine 1700 1000 Uretheral (Espinoza) 1000 Other: Voiding Method Indwelling Catheter Indwelling Catheter Indwelling Catheter # Voids 2 # Bowel Movements 1 - Exam GENERAL: The patient is alert and oriented x3, not in any acute distress. Well developed, well nourished. HEENT: Pupils are round and equally reacting to light. EOMI. No scleral icterus. No conjunctival pallor. Normocephalic, atraumatic. No pharyngeal erythema. No thyromegaly. CARDIOVASCULAR: S1 and S2 present. No murmurs, rubs, or gallops. PULMONARY: Chest is clear to auscultation, no wheezing or crackles. ABDOMEN: Soft, nontender, nondistended, normoactive bowel sounds. No palpable organomegaly. MUSCULOSKELETAL: No joint swelling or deformity. EXTREMITIES: No cyanosis, clubbing, or pedal edema. NEUROLOGICAL: Gross neurological examination did not reveal any focal deficits. SKIN: No rashes. - Labs CBC & Chem 7: 03/17/21 10:03 03/18/21 08:18 Labs: Abnormal Lab Results - Last 24 Hours (Table) 03/17/21 03/17/21 03/17/21 Range/Units 10:03 16:45 21:34 Potassium (3.5-5.5) mmol/L Anion Gap (4.00-12.00) mmol/L Glucose (70-110) mg/dL POC Glucose (mg/dL) 212 H 265 H (75-99) mg/dL Calcium (8.7-10.3) mg/dL Procalcitonin 0.19 H (0.02-0.09) ng/mL 1003/18/21 03/18/21 Range/Units 06:52 08:18 11:25 Potassium 3.3 L (3.5-5.5) mmol/L Anion Gap 12.70 H (4.00-12.00) mmol/L Glucose 219 H (70-110) mg/dL POC Glucose (mg/dL) 171 H 108 H (75-99) mg/dL Calcium 8.4 L (8.7-10.3) mg/dL Procalcitonin (0.02-0.09) ng/mL 03/18/21 Range/Units 16:24 Potassium (3.5-5.5) mmol/L Anion Gap (4.00-12.00) mmol/L Glucose (70-110) mg/dL POC Glucose (mg/dL) 163 H (75-99) mg/dL Calcium (8.7-10.3) mg/dL Procalcitonin (0.02-0.09) ng/mL Microbiology - Last 24 Hours (Table) 03/15/21 17:16 Anaerobic Culture - Preliminary Genital 03/15/21 17:16 Gram Stain - Final Groin Wound Culture - Final Escherichia coli Paige albicans 03/15/21 17:26 Blood Culture - Preliminary Blood No Growth after 48 hours Assessment and Plan Assessment: 1. Leukocytosis/sepsis - As indicated by elevated WBC, lactic acid level, tachycardia and tachypnea, altered mental status - Patient has been placed on IV Zosyn 3.375 g IV every 8 hours; blood cultures and urine cultures obtained and pending - We will monitor CBC, CRP and pro-calcitonin; consult ID for further recommendations 2. Altered mental status/toxic metabolic encephalopathy - Lactic acidosis/sepsis/UTI; patient has been placed on IV fluids we will trend and monitor lactic acid levels; Continue with further sepsis workup if lactic acid levels continue to trend up; Consult ID if no improvement with current treatment 3. Hypertension; continue home dose of Lotrel then40 mg daily, Hydrea Diuril 25 mg daily, Lasix 20 mg daily 4. Diabetes mellitus type 1; continue with Lantus 50 units subcu daily at bedtime, NovoLog 20 units every before meals 3 times a day; hold off of metformin while inpatient 5. Hyperlipidemia; Lipitor 20 mg by mouth daily at bedtime 6. BPH; Flomax 0.8 mg daily 7. Depression; continue with Wellbutrin and Lexapro DVT prophylaxis; SCDs/subcu heparin CODE STATUS; full code
--- NOTE | 2021-03-18 22:05 | PN ---
PROGRESS NOTE DATE OF SERVICE: 03/18/2021 REASON FOR FOLLOWUP: UTI and orchiditis. INTERVAL HISTORY: The patient is afebrile. The patient is breathing comfortably. He seems to be slightly more awake and alert today. No chest pain, shortness of breath or cough. No abdominal pain or diarrhea. PHYSICAL EXAMINATION: Blood pressure is 153/77, pulse of 79, temperature 97.4. He is 90% on 2 L nasal cannula. General description is a middle-aged male lying in bed in no distress. RESPIRATORY SYSTEM: Unlabored breathing. Clear to auscultation anteriorly. HEART: S1, S2. Regular rate and rhythm. ABDOMEN: Soft. No tenderness. Scrotal swelling and redness have slightly decreased. LABS: Creatinine 0.8, white count normal at 9.7. DIAGNOSTIC IMPRESSION AND PLAN: Patient with Escherichia coli urinary tract infection with orchitis. Patient is clinically responding to Rocephin. Transition to oral antibiotic on discharge. Continue supportive care. MMODL / IJN: [id number] /
[2021-03-19 07:39] LABS: Glucose,Whole Blood 119 mg/dL (75-99)
[2021-03-19] MEDS: lisinopriL 20 MG TAB PO SCH (07:41)
[2021-03-19] MEDS: TAMSULOSIN 0.4 MG CAP.ER.24H PO SCH (07:41)
[2021-03-19] MEDS: ATORVASTATIN 20 MG TAB PO SCH (07:41)
[2021-03-19] MEDS: hydrALAZINE HCL 25 MG TAB PO SCH (07:41)
[2021-03-19] MEDS: amLODIPine 10 MG TAB PO SCH (07:41)
[2021-03-19] MEDS: FUROSEMIDE 20 MG TAB PO SCH (07:41)
[2021-03-19] MEDS: buPROPion SR 150 MG TABLET.ER PO SCH (07:42)
[2021-03-19] MEDS: hydroCHLOROthiazide 25 MG TAB PO SCH (07:42)
[2021-03-19] MEDS: ESCITALOPRAM 20 MG TAB PO SCH (07:42)
[2021-03-19] MEDS: FOLIC ACID 1 MG TAB PO SCH (07:42)
[2021-03-19] MEDS: FAMOTIDINE 20 MG TAB PO SCH (07:42)
[2021-03-19] MEDS: INSULIN ASPART (NovoLOG) 100 UNIT/ML VIAL SQ SCH ×2 (07:42→12:08)
[2021-03-19] MEDS: SODIUM CHLORIDE 0.9% 1,000 ML IV SCH (07:45)
[2021-03-19 09:19] VITALS: RESP 17
[2021-03-19 09:50] LABS: Basophils # (A) 0.1 k/uL (0-0.2); Basophils % (A) 1 %; Eosinophils # (A) 0.1 k/uL (0-0.7); Eosinophils % (A) 1 %; HCT 39.6 % (39.0-53.0); HGB 13.5 gm/dL (13.0-17.5); Lymphocytes # (A) 1.3 k/uL (1.0-4.8); Lymphocytes % (A) 12 %; MCH 28.8 pg (25.0-35.0); MCV 84.7 fL (80.0-100.0); Mean Platelet Volume 8.6; Monocytes # (A) 0.5 k/uL (0-1.0); Monocytes % (A) 5 %; Neutrophils % (A) 78 %; Platelet Count 219 k/uL (150-450); RBC 4.68 m/uL (4.30-5.90); RDW 14.2 % (11.5-15.5); WBC 10.2 k/uL (3.8-10.6)
[2021-03-19 10:04] LABS: African American GFR (CKD) >90 (>60 ml/min/1.73 sqM); Anion Gap 6 mmol/L; Blood Urea Nitrogen 9 mg/dL (9-20); Calcium 8.6 mg/dL (8.4-10.2); Carbon Dioxide 29 mmol/L (22-30); Chloride 100 mmol/L (98-107); Glucose 135 mg/dL (74-99); Non-African American GFR(CKD) >90 (>60 ml/min/1.73 sqM); Sodium 135 mmol/L (137-145)
[2021-03-19 11:25] LABS: Glucose,Whole Blood 188 mg/dL (75-99)
[2021-03-19] MEDS ORDERED: POTASSIUM CHLORIDE ER 20 MEQ TAB.ER PO STA (11:30)
[2021-03-19] MEDS: POTASSIUM CHLORIDE ER 20 MEQ TAB.ER PO SCH ×2 (12:08→14:26)
--- NOTE | 2021-03-19 13:30 | P.DS ---
Providers Date of admission: 03/11/21 03:34 Attending physician: Maude Kang Consults: 03/15/21 12:16 Consult Physician Routine Consulting Provider: Amadeo Baeza Consult Reason/Comments: AMS Do you want consulting provider notified?: Yes 03/15/21 14:07 Consult Physician Routine Consulting Provider: Andrew Stern Consult Reason/Comments: Espinoza, scrotal edema and discharge Do you want consulting provider notified?: Yes 03/15/21 15:14 Consult Physician Routine Consulting Provider: Dashawn Kingston Consult Reason/Comments: Scrotal edema and discharge Do you want consulting provider notified?: Yes Primary care physician: Link Prior Hospital Course: Patient is a admitted the with the sepsis and delirium and source of sepsis is being epididymoorchitis from E. coli. Patient is status improved. Patient is undergoing a voiding trial at this time. Patient is bit constipated as well. Patient has pansensitive E. coli discussed with infectious disease patient will be discharged on Cipro Floxin find it twice a day for 2 more weeks patient already is received one week of antibiotics here. Patient will be evaluated by physical therapy before discharge. PHYSICAL EXAMINATION: GENERAL: The patient is alert and oriented x3, not in any acute distress. Well developed, well nourished. HEENT: Pupils are round and equally reacting to light. EOMI. No scleral icterus. No conjunctival pallor. Normocephalic, atraumatic. No pharyngeal erythema. No thyromegaly. CARDIOVASCULAR: S1 and S2 present. No murmurs, rubs, or gallops. PULMONARY: Chest is clear to auscultation, no wheezing or crackles. ABDOMEN: Soft, nontender, nondistended, normoactive bowel sounds. No palpable organomegaly. MUSCULOSKELETAL: No joint swelling or deformity. EXTREMITIES: No cyanosis, clubbing, or pedal edema. NEUROLOGICAL: Gross neurological examination did not reveal any focal deficits. SKIN: No rashes. Final diagnoses -Sepsis secondary to a walk at his -Toxic encephalopathy from epididymoorchitis -Hypertension -Type 2 diabetes mellitus -Hyperlipidemia -Constipation -Benign prostatic hypertrophy -Depression -Urinary retention Plan - Discharge Summary New Discharge Prescriptions: New hydrALAZINE HCL [Apresoline] 25 mg PO BID #60 tab Ciprofloxacin HCl 500 mg PO BID 7 Days #14 tab Potassium Chloride [Klor-Con 20] 20 meq PO DAILY #30 tab Continue metFORMIN HCL [Glucophage] 1,000 mg PO AC-BID Insulin Lispro [humaLOG Kwikpen] 20 unit SQ AC-TID Insulin Glargine,Hum.rec.anlog [Lantus Solostar Pen] 50 unit SQ HS Escitalopram [Lexapro] 20 mg PO DAILY amLODIPine BESYLATE/BENAZEPRIL [Lotrel 10-40 MG] 1 cap PO DAILY Tamsulosin HCl [Flomax] 0.8 mg PO DAILY Furosemide [Lasix] 20 mg PO DAILY buPROPion HCL [Wellbutrin SR] 150 mg PO BID Atorvastatin Calcium [Lipitor] 20 mg PO DAILY Discontinued hydroCHLOROthiazide [Hydrodiuril] 25 mg PO DAILY Discharge Medication List Atorvastatin Calcium [Lipitor] 20 mg PO DAILY 03/11/21 [History] Escitalopram [Lexapro] 20 mg PO DAILY 03/11/21 [History] Furosemide [Lasix] 20 mg PO DAILY 03/11/21 [History] Insulin Glargine,Hum.rec.anlog [Lantus Solostar Pen] 50 unit SQ HS 03/11/21 [History] Insulin Lispro [humaLOG Kwikpen] 20 unit SQ AC-TID 03/11/21 [History] Tamsulosin HCl [Flomax] 0.8 mg PO DAILY 03/11/21 [History] amLODIPine BESYLATE/BENAZEPRIL [Lotrel 10-40 MG] 1 cap PO DAILY 03/11/21 [History] buPROPion HCL [Wellbutrin SR] 150 mg PO BID 03/11/21 [History] metFORMIN HCL [Glucophage] 1,000 mg PO AC-BID 03/11/21 [History] hydrALAZINE HCL [Apresoline] 25 mg PO BID #60 tab 03/14/21 [Rx] Ciprofloxacin HCl 500 mg PO BID 7 Days #14 tab 03/19/21 [Rx] Potassium Chloride [Klor-Con 20] 20 meq PO DAILY #30 tab 03/19/21 [Rx] Follow up Appointment(s)/Referral(s): Link Wallis DO [Primary Care Provider] - 1 Week (PLEASE CALL AND SCHEDULE APPOINTMENT FOR ONE WEEK.) Panchito White MD [STAFF PHYSICIAN] - 1 Week (Yun from the office will be calling with yourr appointment date and time. Thank you.) Patient Instructions/Handouts: Urinary Tract Infection in Men (DC) Discharge Disposition: HOME SELF-CARE
--- NOTE | 2021-03-19 14:57 | PN ---
PROGRESS NOTE DATE OF SERVICE: 03/19/2021 REASON FOR FOLLOWUP: E coli UTI with orchitis. INTERVAL HISTORY: The patient is afebrile. He has been more awake and alert. He is breathing comfortably. No chest pain, shortness of breath or cough. No abdominal pain or diarrhea. PHYSICAL EXAMINATION: Blood pressure is 143/80 with a pulse of 74, temperature 98.2. He is 94% on room air. General description is a middle-aged male up in the room in no distress. Respiratory system: Unlabored breathing, clear to auscultation anteriorly. Heart S1, S2. Regular rate and rhythm. Abdomen soft, no tenderness. Scrotal swelling has much improved. LABS: Hemoglobin 13.2, white count 10.2, creatinine 0.68. DIAGNOSTIC IMPRESSION AND PLAN: Patient with E coli UTI complicated with orchitis, improving with Rocephin, transition to oral Ceftin or Cipro for two weeks and close outpatient followup. Plan of care was discussed with the admitting physician. MMODL / IJN: [id number] /
[2021-03-19 16:18] VITALS: BP 149/71; PULSE 84; TEMP 97.9
== END 2021-03-19 17:33 | DRG 871 ==
LOC: EC 22:03 → 5NMEDONC 03-11 03:34 → 1SOBS 03-12 15:03 → 4SSUR 03-14 15:04
PROVIDERS: ADMIT Hospitalist; ATTEND Hospitalist
DX: A41.51 Sepsis due to Escherichia coli [E. coli] (principal); G92.8 Other toxic encephalopathy; N39.0 Urinary tract infection, site not specified; E87.1 Hypo-osmolality and hyponatremia; E87.4 Mixed disorder of acid-base balance; Z68.42 Body mass index [BMI] 45.0-49.9, adult; E10.9 Type 1 diabetes mellitus without complications; Z79.4 Long term (current) use of insulin; Z20.822 Contact with and (suspected) exposure to COVID-19; E66.9 Obesity, unspecified; N39.498 Other specified urinary incontinence; N45.3 Epididymo-orchitis; N43.3 Hydrocele, unspecified; N40.1 Benign prostatic hyperplasia with lower urinary tract symptoms; I10 Essential (primary) hypertension; E78.5 Hyperlipidemia, unspecified; E87.6 Hypokalemia; E53.8 Deficiency of other specified B group vitamins; K59.00 Constipation, unspecified; I45.10 Unspecified right bundle-branch block; F32.9 Major depressive disorder, single episode, unspecified; R79.89 Other specified abnormal findings of blood chemistry; F17.200 Nicotine dependence, unspecified, uncomplicated; Z79.84 Long term (current) use of oral hypoglycemic drugs; Z79.899 Other long term (current) drug therapy; Z87.19 Personal history of other diseases of the digestive system; Z98.890 Other specified postprocedural states; Z71.3 Dietary counseling and surveillance
CPT/HCPCS: 36415; 36600; 70450; 71045; 76870; 80048; 80053; 81001; 82140; 82607; 82746; 82805; 83605; 83735; 84132; 84145; 84425; 84443; 84484; 85025; 85610; 85730; 86140; 87040; 87070; 87075; 87077; 87086; 87186; 87205; 87635; 93005; 93975; 96361; 96365; 96372; 96375; 99285

== ENCOUNTER 2021-04-14 21:55 | Emergency (ER) | payer OTHER ==
[2021-04-14] MEDS ORDERED: LIDOCAINE URO-JET JELLY 2% 5 ML KIT URETHRAL ONE (22:23)
--- NOTE | 2021-04-14 22:46 | ED ---
Male Urogenital HPI - General Chief complaint: Urogenital Stated complaint: Urinary blockage Time Seen by Provider: 04/14/21 22:19 Source: patient, family Mode of arrival: ambulatory Limitations: no limitations - History of Present Illness Initial comments: 65-year-old male patient presents to the emergency department today for obstructed Flores catheter. States he has had the catheter in for the last 11 days due to inability to urinate after an infection. Patient states that they did take trial taking it out on Friday but he was unable to urinate without it. States that he saw Dr. White again and the flores was replaced on Friday. States that today he noticed blood in his urine. States that he stopped having drainage into the catheter bag and noticed blood clots at the top of the tubing. Reports feeling a full bladder sensation. He denies fever or chills. Denies nausea or vomiting. - Related Data Home Medications Medication Instructions Recorded Confirmed Atorvastatin Calcium [Lipitor] 20 mg PO DAILY 03/11/21 03/11/21 Escitalopram [Lexapro] 20 mg PO DAILY 03/11/21 03/11/21 Furosemide [Lasix] 20 mg PO DAILY 03/11/21 03/11/21 Insulin Glargine,Hum.rec.anlog 50 unit SQ HS 03/11/21 03/11/21 [Lantus Solostar Pen] Insulin Lispro [humaLOG Kwikpen] 20 unit SQ AC-TID 03/11/21 03/11/21 Tamsulosin HCl [Flomax] 0.8 mg PO DAILY 03/11/21 03/11/21 amLODIPine BESYLATE/BENAZEPRIL 1 cap PO DAILY 03/11/21 03/11/21 [Lotrel 10-40 MG] buPROPion HCL [Wellbutrin SR] 150 mg PO BID 03/11/21 03/11/21 metFORMIN HCL [Glucophage] 1,000 mg PO AC-BID 03/11/21 03/11/21 Previous Rx's Medication Instructions Recorded hydrALAZINE HCL [Apresoline] 25 mg PO BID #60 tab 03/14/21 Ciprofloxacin HCl 500 mg PO BID 7 Days #14 tab 03/19/21 Potassium Chloride [Klor-Con 20] 20 meq PO DAILY #30 tab 03/19/21 polyethylene glycoL 3350 [Miralax] 17 gm PO DAILY PRN #15 packet 03/19/21 Allergies Allergy/AdvReac Type Severity Reaction Status Date / Time No Known Allergies Allergy Verified 04/14/21 22:09 Review of Systems ROS Statement: Those systems with pertinent positive or pertinent negative responses have been documented in the HPI. ROS Other: All systems not noted in ROS Statement are negative. Past Medical History Past Medical History: Diabetes Mellitus, Hypertension History of Any Multi-Drug Resistant Organisms: None Reported Additional Past Surgical History / Comment(s): hernia Past Psychological History: No Psychological Hx Reported Smoking Status: Current every day smoker Past Alcohol Use History: None Reported Past Drug Use History: None Reported General Exam Limitations: no limitations General appearance: alert, in no apparent distress, other (This is a well- developed, well-nourished adult male in no acute distress. ) Eye exam: Present: normal appearance, PERRL, EOMI. Absent: scleral icterus, conjunctival injection, periorbital swelling ENT exam: Present: normal exam, normal oropharynx, mucous membranes moist Respiratory exam: Present: normal lung sounds bilaterally. Absent: respiratory distress, wheezes, rales, rhonchi, stridor Cardiovascular Exam: Present: regular rate, normal rhythm, normal heart sounds. Absent: systolic murmur, diastolic murmur, rubs, gallop, clicks GI/Abdominal exam: Present: soft, tenderness (suprapubic), normal bowel sounds. Absent: distended, guarding, rebound, rigid Neurological exam: Present: alert, oriented X3, CN II-XII intact Psychiatric exam: Present: normal affect, normal mood Skin exam: Present: warm, dry, intact, normal color. Absent: rash Course Vital Signs 04/14/21 04/15/21 22:05 00:13 Temperature 99.1 F 98.0 F Pulse Rate 109 H 86 Respiratory 22 20 Rate Blood Pressure 142/74 125/85 O2 Sat by Pulse 97 96 Oximetry Medical Decision Making - Medical Decision Making 65-year-old reveals suprapubic tenderness. We did remove the old catheter placed a larger one due to hematuria and clotting. He did have output approximately 900 mL. We did send urinalysis which showed presence of hematuria. This was sent for culture. There is no bacteria. He is afebrile. We discharged follow-up with the urologist for further evaluation as soon as possible. Return parameters were discussed in detail. He verbalizes understanding and agrees with this plan. My attending is Dr. Clinton. - Lab Data Lab Results 04/14/21 Range/Units 23:13 Urine Color Red Urine Appearance Turbid (Clear) Urine pH 5.5 (5.0-8.0) Ur Specific [place] 1.016 (1.001-1.035) Urine Protein 1+ H (Negative) Urine Glucose (UA) Negative (Negative) Urine Ketones Negative (Negative) Urine Blood Large H (Negative) Urine Nitrite Negative (Negative) Urine Bilirubin Negative (Negative) Urine Urobilinogen <2.0 (<2.0) mg/dL Ur Leukocyte Esterase Small H (Negative) Urine RBC >182 H (0-5) /hpf Urine Mucus Rare H (None) /hpf Disposition Clinical Impression: Obstructed Flores catheter, Hematuria Disposition: HOME SELF-CARE Condition: Good Instructions (If sedation given, give patient instructions): Flores Catheter Placement and Care (ED), Hematuria (ED) Additional Instructions: Contact Dr. White inform him of your the urine. Return to the emergency department for any new, worsening, or concerning symptoms. Is patient prescribed a controlled substance at d/c from ED?: No Referrals: Link Wallis DO [Primary Care Provider] - 1-2 days Panchito White MD [STAFF PHYSICIAN] - 1-2 days Time of Disposition: 23:56
[2021-04-14 23:45] LABS: Appearance,Urine Turbid (Clear); Bilirubin,Urine Negative (Negative); Blood,Urine Large (Negative); Color,Urine Red; Glucose,Urine (UA) Negative (Negative); Ketones,Urine Negative (Negative); Leukocyte Esterase,Urine Small (Negative); Mucus,Urine Rare /hpf; Nitrite,Urine Negative (Negative); PH, Urine 5.5 (5.0-8.0); Protein,Urine 1+ (Negative); RBC,Urine >182 /hpf (0-5); Specific Gravity,Urine 1.016 (1.001-1.035); Urobilinogen,Urine <2.0 mg/dL (<2.0)
[2021-04-15 00:16] VITALS: BP 125/85; PULSE 86; RESP 20; TEMP 98
== END 2021-04-15 00:15 | disposition home or self-care (01) ==
LOC: EC 21:55
DX: T83.091A Other mechanical complication of indwelling urethral catheter, initial encounter (principal); R31.9 Hematuria, unspecified; I10 Essential (primary) hypertension; E11.9 Type 2 diabetes mellitus without complications; F17.200 Nicotine dependence, unspecified, uncomplicated; Z79.899 Other long term (current) drug therapy; Z79.4 Long term (current) use of insulin; Z79.84 Long term (current) use of oral hypoglycemic drugs
CPT/HCPCS: 81001; 87086; 99283

== ENCOUNTER 2021-04-15 17:20 | Emergency (ER) | payer OTHER ==
--- NOTE | 2021-04-15 20:24 | ED ---
Male Urogenital HPI - General Chief complaint: Urogenital Stated complaint: bladder pressure, needs new bag, Revisit Time Seen by Provider: 04/15/21 19:40 Source: patient Mode of arrival: ambulatory Limitations: no limitations - History of Present Illness Initial comments: Julián is a 65-year-old gentleman presents to ER today for reevaluation of fully catheter occlusion. Patient has had a Espinoza catheter for proximal weeks, he developed hematuria yesterday, he was seen in our ER and have Espinoza catheter exchange and irrigation due to occlusion from clot. Reports it is fully worked overnight but became occluded this morning. Feeling the pain became unbearable so he came to the ER for reevaluation. Patient is going to see urology tomorrow morning. - Related Data Home Medications Medication Instructions Recorded Confirmed Atorvastatin Calcium [Lipitor] 20 mg PO DAILY 03/11/21 03/11/21 Escitalopram [Lexapro] 20 mg PO DAILY 03/11/21 03/11/21 Furosemide [Lasix] 20 mg PO DAILY 03/11/21 03/11/21 Insulin Glargine,Hum.rec.anlog 50 unit SQ HS 03/11/21 03/11/21 [Lantus Solostar Pen] Insulin Lispro [humaLOG Kwikpen] 20 unit SQ AC-TID 03/11/21 03/11/21 Tamsulosin HCl [Flomax] 0.8 mg PO DAILY 03/11/21 03/11/21 amLODIPine BESYLATE/BENAZEPRIL 1 cap PO DAILY 03/11/21 03/11/21 [Lotrel 10-40 MG] buPROPion HCL [Wellbutrin SR] 150 mg PO BID 03/11/21 03/11/21 metFORMIN HCL [Glucophage] 1,000 mg PO AC-BID 03/11/21 03/11/21 Previous Rx's Medication Instructions Recorded hydrALAZINE HCL [Apresoline] 25 mg PO BID #60 tab 03/14/21 Ciprofloxacin HCl 500 mg PO BID 7 Days #14 tab 03/19/21 Potassium Chloride [Klor-Con 20] 20 meq PO DAILY #30 tab 03/19/21 polyethylene glycoL 3350 [Miralax] 17 gm PO DAILY PRN #15 packet 03/19/21 Allergies Allergy/AdvReac Type Severity Reaction Status Date / Time No Known Allergies Allergy Verified 04/15/21 19:16 Review of Systems ROS Statement: Those systems with pertinent positive or pertinent negative responses have been documented in the HPI. ROS Other: All systems not noted in ROS Statement are negative. Past Medical History Past Medical History: Diabetes Mellitus, Hypertension History of Any Multi-Drug Resistant Organisms: None Reported Additional Past Surgical History / Comment(s): hernia Past Psychological History: No Psychological Hx Reported Smoking Status: Current every day smoker Past Alcohol Use History: None Reported Past Drug Use History: None Reported General Exam - General Exam Comments Initial Comments: Physical Exam GENERAL: Patient is well-developed and well-nourished. distress secondary to discomfort HENT: Normocephalic, Atraumatic. EYES: PERRL, EOMI PULMONARY: Unlabored respirations. CARDIOVASCULAR: RRR Warm and well perfused extremities ABDOMEN: Non-distended SKIN: No rashes or bruising : Espinoza catheter in place NEUROLOGIC: Alert and oriented Normal speech Normal gait MUSCULOSKELETAL: Moving all extremities with no apparent injury PSYCHIATRIC: No SI/HI Limitations: no limitations Course Vital Signs 04/15/21 19:16 Temperature 98.2 F Pulse Rate 108 H Respiratory 24 Rate Blood Pressure 158/95 O2 Sat by Pulse 95 Oximetry Medical Decision Making - Medical Decision Making She was seen and evaluated, Espinoza catheter was irrigated, bloody urine was draining patient was in no distress comfortable plan for discharge home he will see a urologist tomorrow Disposition Clinical Impression: Retention of urine due to occlusion of Espinoza catheter, Gross hematuria Disposition: HOME SELF-CARE Condition: Stable Additional Instructions: Follow up with urology tomorrow Is patient prescribed a controlled substance at d/c from ED?: No Referrals: Link Wallis DO [Primary Care Provider] - 1-2 days
[2021-04-15 20:41] VITALS: BP 141/79; PULSE 81; RESP 18; TEMP 98.1
== END 2021-04-15 20:38 | disposition home or self-care (01) ==
LOC: EC 17:20
DX: T83.098A Other mechanical complication of other urinary catheter, initial encounter (principal); R31.0 Gross hematuria; E11.9 Type 2 diabetes mellitus without complications; I10 Essential (primary) hypertension; Z79.899 Other long term (current) drug therapy; Z79.4 Long term (current) use of insulin; Z79.84 Long term (current) use of oral hypoglycemic drugs
CPT/HCPCS: 99283

== ENCOUNTER 2021-09-16 18:27 | Observation (INO) | payer OTHER ==
[2021-09-16] MEDS ORDERED: SODIUM CHLORIDE 0.9% 500 ML 500 ML IV STA (20:18)
--- NOTE | 2021-09-16 20:21 | ED ---
Dizziness HPI - General Chief Complaint: Dizziness Stated Complaint: Dizziness Time Seen by Provider: 09/16/21 20:10 Source: patient, RN notes reviewed Mode of arrival: ambulatory Limitations: no limitations - History of Present Illness Initial Comments: This is a pleasant 65 male with a history of diabetes mellitus and hypertension. He presents to the emergency department complaining of generalized weakness and feeling off balance. Patient states is going on for about for 5 days. Patient states when he walks and stands he feels like he is going to fall over. He is denying any overt vertigo. Patient denying any pain. Patient states that last time something like this happened he ended up having a urinary tract infection had to be admitted for several days. No headache, no fever or chills, no changes in vision or hearing, no sore throat or difficulty with speech, no neck pain, no chest pain or shortness of breath, no abdominal pain, no nausea or vomiting, no changes in urination or bowel movements, no numbness or tingling, no extremity pain, no skin rashes or lesions. - Related Data Home Medications Medication Instructions Recorded Confirmed Atorvastatin Calcium [Lipitor] 20 mg PO DAILY 03/11/21 09/16/21 Escitalopram [Lexapro] 20 mg PO DAILY 03/11/21 09/16/21 Insulin Glargine,Hum.rec.anlog 50 unit SQ DAILY 03/11/21 09/16/21 [Lantus Solostar Pen] Insulin Lispro [humaLOG Kwikpen] 20 unit SQ AC-TID 03/11/21 09/16/21 Tamsulosin HCl [Flomax] 0.8 mg PO DAILY 03/11/21 09/16/21 amLODIPine BESYLATE/BENAZEPRIL 1 cap PO DAILY 03/11/21 09/16/21 [Lotrel 10-40 MG] buPROPion HCL [Wellbutrin SR] 150 mg PO BID 03/11/21 09/16/21 metFORMIN HCL [Glucophage] 1,000 mg PO AC-BID 03/11/21 09/16/21 hydroCHLOROthiazide 25 mg PO DAILY 09/16/21 09/16/21 Previous Rx's Medication Instructions Recorded hydrALAZINE HCL [Apresoline] 25 mg PO BID #60 tab 03/14/21 Allergies Allergy/AdvReac Type Severity Reaction Status Date / Time No Known Allergies Allergy Verified 09/16/21 19:28 Review of Systems ROS Statement: Those systems with pertinent positive or pertinent negative responses have been documented in the HPI. ROS Other: All systems not noted in ROS Statement are negative. Past Medical History Past Medical History: Diabetes Mellitus, Hypertension History of Any Multi-Drug Resistant Organisms: None Reported Additional Past Surgical History / Comment(s): hernia Past Psychological History: No Psychological Hx Reported Smoking Status: Current every day smoker Past Alcohol Use History: None Reported Past Drug Use History: None Reported General Exam - General Exam Comments Initial Comments: Obese 65-year-old diabetic male in no significant distress. Appears to be adequately hydrated with normal skin color. I did note that the patient has uri nated on himself. Limitations: no limitations General appearance: obese Head exam: Present: atraumatic, normocephalic, normal inspection Eye exam: Present: normal appearance, PERRL, EOMI. Absent: scleral icterus, conjunctival injection, periorbital swelling ENT exam: Present: normal exam, mucous membranes moist Neck exam: Present: normal inspection, full ROM. Absent: tenderness, meningismus, lymphadenopathy Respiratory exam: Present: normal lung sounds bilaterally. Absent: respiratory distress, wheezes, rales, rhonchi, stridor, chest wall tenderness, accessory muscle use Cardiovascular Exam: Present: regular rate, normal rhythm, normal heart sounds. Absent: systolic murmur, diastolic murmur, rubs, gallop, clicks GI/Abdominal exam: Present: soft, normal bowel sounds. Absent: distended, tenderness, guarding, rebound, rigid Extremities exam: Present: normal inspection, full ROM, normal capillary refill. Absent: tenderness, pedal edema, joint swelling, calf tenderness Back exam: Present: normal inspection Neurological exam: Present: alert, oriented X3, CN II-XII intact, abnormal gait. Absent: altered, normal gait, motor sensory deficit, reflexes normal Expanded Patient oriented to: Present: person, place, time Speech: Present: fluid speech Cranial nerves: EOM's Intact: Normal, Gag Reflex: Normal, Tongue Deviation: Normal, Nystagmus: Normal, Facial Sensation: Normal, Facial Palsy with Forehead Movement: Normal, Facial Palsy without Forehead Movement: Normal Cerebellar function: Finger to Nose: Normal, Heel to Neri: Normal, Romberg: Abnormal Right Upper motor neuron: Sheng Neglect: Normal, Pronator Drift: Abnormal Left, Sensory Extinction: Normal Motor strength exam: RUE: 5, LUE: 5, RLE: 5, LLE: 5 Eye Response: (4) open spontaneously Motor Response: (6) obeys commands Verbal Response: (5) oriented Psychiatric exam: Present: normal affect, normal mood Skin exam: Present: warm, dry, intact, normal color. Absent: rash Course Vital Signs 09/16/21 09/16/21 09/16/21 19:24 21:46 22:39 Temperature 98.5 F 99 F Pulse Rate 100 89 Pulse Rate [ 90 Sitting] Pulse Rate [ 92 Standing] Pulse Rate [ 88 Supine Pulse Oximetery] Respiratory 20 20 22 Rate Blood Pressure 138/95 174/104 Blood Pressure 176/82 [Sitting] Blood Pressure 179/86 [Standing] Blood Pressure 169/79 [Supine] O2 Sat by Pulse 96 94 L Oximetry - Reevaluation(s) Reevaluation #1: 09/16/21 21:48 Medical record is reviewed Patient is informed of results and questions answered Patient in no distressPatient has an abnormal Romberg test. Patient also has evidence of pronator drift on the left. Remainder of the neurological examination is otherwise benign - Consultations Consultation #1: Marcell was discussed in detail with Dr. Urbano who accepts admission of the patient. Consultation will be placed for neurology. MRI of the morning. EKG Findings - EKG Comments: EKG Findings:: EKG done at 22 2300 with ED attending physician reveals right bundle branch block with sinus rhythm right axis deviation. No definitive evidence of acute ST or T-wave changes. QRS duration 173 ms. Other intervals are normal. When compared to the previous study from February 2021 there is a change in her rate, otherwise no significant change. Medical Decision Making - Medical Decision Making Patient will be admitted for abnormal neurological exam and inability to ambulate safely. Case will be discussed with the on-call [facility] physician, Dr. Urbano. - Lab Data Result diagrams: 09/16/21 20:59 09/16/21 20:59 Lab Results 09/16/21 09/16/21 09/16/21 Range/Units 20:59 20:59 20:59 WBC 8.7 (3.8-10.6) k/uL RBC 5.69 (4.30-5.90) m/uL Hgb 16.1 (13.0-17.5) gm/dL Hct 48.7 (39.0-53.0) % MCV 85.5 (80.0-100.0) fL MCH 28.4 (25.0-35.0) pg MCHC 33.2 (31.0-37.0) g/dL RDW 14.5 (11.5-15.5) % Plt Count 207 (150-450) k/uL MPV 7.8 Neutrophils % 70 % Lymphocytes % 19 % Monocytes % 7 % Eosinophils % 1 % Basophils % 1 % Neutrophils # 6.2 (1.3-7.7) k/uL Lymphocytes # 1.6 (1.0-4.8) k/uL Monocytes # 0.6 (0-1.0) k/uL Eosinophils # 0.1 (0-0.7) k/uL Basophils # 0.1 (0-0.2) k/uL Sodium 140 (137-145) mmol/L Potassium 5.2 H (3.5-5.1) mmol/L Chloride 103 (98-107) mmol/L Carbon Dioxide 29 (22-30) mmol/L Anion Gap 8 mmol/L BUN 18 (9-20) mg/dL Creatinine 0.86 (0.66-1.25) mg/dL Est GFR (CKD-EPI)AfAm >90 (>60 ml/min/1.73 sqM) Est GFR (CKD-EPI)NonAf >90 (>60 ml/min/1.73 sqM) Glucose 107 H (74-99) mg/dL POC Glucose (mg/dL) (75-99) mg/dL POC Glu Shearing Shed Hand ID Plasma Lactic Acid Polo (0.7-2.0) mmol/L Calcium 9.5 (8.4-10.2) mg/dL Total Bilirubin 1.6 H (0.2-1.3) mg/dL AST 54 (17-59) U/L ALT 21 (4-49) U/L Alkaline Phosphatase 50 (38-126) U/L Troponin I (0.000-0.034) ng/mL Total Protein 8.0 (6.3-8.2) g/dL Albumin 4.7 (3.5-5.0) g/dL TSH 1.490 (0.465-4.680) mIU/L Urine Color Yellow Urine Appearance Clear (Clear) Urine pH 5.0 (5.0-8.0) Ur Specific [place] 1.021 (1.001-1.035) Urine Protein 1+ H (Negative) Urine Glucose (UA) Negative (Negative) Urine Ketones Negative (Negative) Urine Blood Negative (Negative) Urine Nitrite Negative (Negative) Urine Bilirubin Negative (Negative) Urine Urobilinogen <2.0 (<2.0) mg/dL Ur Leukocyte Esterase Negative (Negative) Urine RBC <1 (0-5) /hpf Urine WBC 2 (0-5) /hpf Ur Squamous Epith Cells <1 (0-4) /hpf Urine Mucus Rare H (None) /hpf Coronavirus (PCR) (Not Detectd) 09/16/21 09/16/21 09/16/21 Range/Units 20:59 20:59 22:01 WBC (3.8-10.6) k/uL RBC (4.30-5.90) m/uL Hgb (13.0-17.5) gm/dL Hct (39.0-53.0) % MCV (80.0-100.0) fL MCH (25.0-35.0) pg MCHC (31.0-37.0) g/dL RDW (11.5-15.5) % Plt Count (150-450) k/uL MPV Neutrophils % % Lymphocytes % % Monocytes % % Eosinophils % % Basophils % % Neutrophils # (1.3-7.7) k/uL Lymphocytes # (1.0-4.8) k/uL Monocytes # (0-1.0) k/uL Eosinophils # (0-0.7) k/uL Basophils # (0-0.2) k/uL Sodium (137-145) mmol/L Potassium (3.5-5.1) mmol/L Chloride (98-107) mmol/L Carbon Dioxide (22-30) mmol/L Anion Gap mmol/L BUN (9-20) mg/dL Creatinine (0.66-1.25) mg/dL Est GFR (CKD-EPI)AfAm (>60 ml/min/1.73 sqM) Est GFR (CKD-EPI)NonAf (>60 ml/min/1.73 sqM) Glucose (74-99) mg/dL POC Glucose (mg/dL) (75-99) mg/dL POC Glu Shearing Shed Hand ID Plasma Lactic Acid [place] 2.6 H* (0.7-2.0) mmol/L Calcium (8.4-10.2) mg/dL Total Bilirubin (0.2-1.3) mg/dL AST (17-59) U/L ALT (4-49) U/L Alkaline Phosphatase (38-126) U/L Troponin I <0.012 (0.000-0.034) ng/mL Total Protein (6.3-8.2) g/dL Albumin (3.5-5.0) g/dL TSH (0.465-4.680) mIU/L Urine Color Urine Appearance (Clear) Urine pH (5.0-8.0) Ur Specific [place] (1.001-1.035) Urine Protein (Negative) Urine Glucose (UA) (Negative) Urine Ketones (Negative) Urine Blood (Negative) Urine Nitrite (Negative) Urine Bilirubin (Negative) Urine Urobilinogen (<2.0) mg/dL Ur Leukocyte Esterase (Negative) Urine RBC (0-5) /hpf Urine WBC (0-5) /hpf Ur Squamous Epith Cells (0-4) /hpf Urine Mucus (None) /hpf Coronavirus (PCR) Not Detected (Not Detectd) 09/16/21 Range/Units 22:38 WBC (3.8-10.6) k/uL RBC (4.30-5.90) m/uL Hgb (13.0-17.5) gm/dL Hct (39.0-53.0) % MCV (80.0-100.0) fL MCH (25.0-35.0) pg MCHC (31.0-37.0) g/dL RDW (11.5-15.5) % Plt Count (150-450) k/uL MPV Neutrophils % % Lymphocytes % % Monocytes % % Eosinophils % % Basophils % % Neutrophils # (1.3-7.7) k/uL Lymphocytes # (1.0-4.8) k/uL Monocytes # (0-1.0) k/uL Eosinophils # (0-0.7) k/uL Basophils # (0-0.2) k/uL Sodium (137-145) mmol/L Potassium (3.5-5.1) mmol/L Chloride (98-107) mmol/L Carbon Dioxide (22-30) mmol/L Anion Gap mmol/L BUN (9-20) mg/dL Creatinine (0.66-1.25) mg/dL Est GFR (CKD-EPI)AfAm (>60 ml/min/1.73 sqM) Est GFR (CKD-EPI)NonAf (>60 ml/min/1.73 sqM) Glucose (74-99) mg/dL POC Glucose (mg/dL) 100 H (75-99) mg/dL POC Glu Shearing Shed Hand ID Link Hernandez Plasma Lactic Acid [place] (0.7-2.0) mmol/L Calcium (8.4-10.2) mg/dL Total Bilirubin (0.2-1.3) mg/dL AST (17-59) U/L ALT (4-49) U/L Alkaline Phosphatase (38-126) U/L Troponin I (0.000-0.034) ng/mL Total Protein (6.3-8.2) g/dL Albumin (3.5-5.0) g/dL TSH (0.465-4.680) mIU/L Urine Color Urine Appearance (Clear) Urine pH (5.0-8.0) Ur Specific [place] (1.001-1.035) Urine Protein (Negative) Urine Glucose (UA) (Negative) Urine Ketones (Negative) Urine Blood (Negative) Urine Nitrite (Negative) Urine Bilirubin (Negative) Urine Urobilinogen (<2.0) mg/dL Ur Leukocyte Esterase (Negative) Urine RBC (0-5) /hpf Urine WBC (0-5) /hpf Ur Squamous Epith Cells (0-4) /hpf Urine Mucus (None) /hpf Coronavirus (PCR) (Not Detectd) Disposition Clinical Impression: Cerebellar ataxia, Debilitated patient, General weakness, Uncontrolled hypertension Disposition: ADMITTED IP TO THIS HOSP Condition: Fair Referrals: Link Wallis DO [Primary Care Provider] - 1-2 days
[2021-09-16 21:22] LABS: ALT 21 U/L (4-49); AST 54 U/L (17-59); African American GFR (CKD) >90 (>60 ml/min/1.73 sqM); Albumin 4.7 g/dL (3.5-5.0); Alkaline Phosphatase 50 U/L (38-126); Anion Gap 8 mmol/L; Blood Urea Nitrogen 18 mg/dL (9-20); Calcium 9.5 mg/dL (8.4-10.2); Carbon Dioxide 29 mmol/L (22-30); Chloride 103 mmol/L (98-107); Glucose 107 mg/dL (74-99); Non-African American GFR(CKD) >90 (>60 ml/min/1.73 sqM); Sodium 140 mmol/L (137-145); Total Bilirubin 1.6 mg/dL (0.2-1.3)
[2021-09-16 21:26] LABS: Appearance,Urine Clear (Clear); Basophils # (A) 0.1 k/uL (0-0.2); Basophils % (A) 1 %; Bilirubin,Urine Negative (Negative); Blood,Urine Negative (Negative); Color,Urine Yellow; Eosinophils # (A) 0.1 k/uL (0-0.7); Eosinophils % (A) 1 %; Glucose,Urine (UA) Negative (Negative); HCT 48.7 % (39.0-53.0); HGB 16.1 gm/dL (13.0-17.5); Ketones,Urine Negative (Negative); Leukocyte Esterase,Urine Negative (Negative); Lymphocytes # (A) 1.6 k/uL (1.0-4.8); Lymphocytes % (A) 19 %; MCH 28.4 pg (25.0-35.0); MCHC 33.2 g/dL (31.0-37.0); MCV 85.5 fL (80.0-100.0); Mean Platelet Volume 7.8; Monocytes # (A) 0.6 k/uL (0-1.0); Monocytes % (A) 7 %; Mucus,Urine Rare /hpf; Neutrophils # (A) 6.2 k/uL (1.3-7.7); Neutrophils % (A) 70 %; Nitrite,Urine Negative (Negative); Platelet Count 207 k/uL (150-450); Potassium 5.2 mmol/L (3.5-5.1); Protein,Urine 1+ (Negative); RBC 5.69 m/uL (4.30-5.90); RBC,Urine <1 /hpf (0-5); RDW 14.5 % (11.5-15.5); Specific Gravity,Urine 1.021 (1.001-1.035); Squamous Epithelial Cell,Urine <1 /hpf (0-4); Urobilinogen,Urine <2.0 mg/dL (<2.0); WBC 8.7 k/uL (3.8-10.6); WBC,Urine 2 /hpf (0-5)
--- NOTE | 2021-09-16 21:33 | XR ---
EXAMINATION TYPE: XR abdomen acute w cxr DATE OF EXAM: 09/16/2021 COMPARISON: NONE HISTORY: Weakness TECHNIQUE: 5 views FINDINGS: There is no heart failure nor confluent pneumonic infiltrate. Costophrenic angles are clear . Bowel gas pattern is normal. There is no sign of intestinal obstruction or pneumoperitoneum. Fecal pattern is normal. No calcifications seen over the kidneys. Bony structures are intact. IMPRESSION: Normal chest. Nonacute abdomen.
--- NOTE | 2021-09-16 21:47 | CT ---
EXAMINATION TYPE: CT brain wo con DATE OF EXAM: 09/16/2021 COMPARISON: 03/15/2021 HISTORY: Dizziness CT DLP: 1188.4 mGycm Automated exposure control for dose reduction was used. There is cerebral cortical atrophy. There is no mass effect or midline shift. There is no sign of int racranial hemorrhage. There is mild hypodensity in the periventricular white matter. The calvarium is intact. Skull base is intact. IMPRESSION: Cerebral atrophy and chronic small vessel ischemia. No change.
[2021-09-16 22:40] LABS: Glucose,Whole Blood 100 mg/dL (75-99)
[2021-09-16] MEDS ORDERED: ONDANSETRON 4 MG/2 ML VIAL IVP PRN (23:14)
[2021-09-16] MEDS ORDERED: MELATONIN 3 MG TABLET PO PRN (23:14)
[2021-09-16] MEDS ORDERED: ACETAMINOPHEN TAB 325 MG TAB PO PRN (23:14)
[2021-09-16] MEDS ORDERED: NALOXONE 0.4 MG/ML 1 ML VIAL IV PRN (23:14)
[2021-09-16] MEDS ORDERED: ASPIRIN 325 MG TAB PO STA (23:22)
[2021-09-17] MEDS: hydrALAZINE HCL 25 MG TAB PO SCH ×4 (00:46→22:44)
[2021-09-17] MEDS: hydroCHLOROthiazide 25 MG TAB PO SCH ×2 (00:46→11:24)
[2021-09-17 02:59] LABS: Glucose,Whole Blood 222 mg/dL (75-99)
[2021-09-17] MEDS ORDERED: hydrALAZINE HCL 25 MG TAB ONE (08:00)
[2021-09-17] MEDS ORDERED: hydroCHLOROthiazide 25 MG TAB ONE (08:00)
[2021-09-17 08:45] LABS: ALT 19 U/L (4-49); AST 22 U/L (17-59); African American GFR (CKD) >90 (>60 ml/min/1.73 sqM); Albumin 3.9 g/dL (3.5-5.0); Alkaline Phosphatase 64 U/L (38-126); Anion Gap 6 mmol/L; Blood Urea Nitrogen 17 mg/dL (9-20); Calcium 9.2 mg/dL (8.4-10.2); Carbon Dioxide 29 mmol/L (22-30); Chloride 102 mmol/L (98-107); Glucose 180 mg/dL (74-99); Magnesium 1.8 mg/dL (1.6-2.3); Non-African American GFR(CKD) >90 (>60 ml/min/1.73 sqM); Phosphorus 3.8 mg/dL (2.5-4.5); Potassium 3.1 mmol/L (3.5-5.1); Sodium 137 mmol/L (137-145); Total Bilirubin 0.7 mg/dL (0.2-1.3); Total Protein 6.5 g/dL (6.3-8.2)
[2021-09-17 08:57] LABS: Basophils # (A) 0.1 k/uL (0-0.2); Basophils % (A) 1 %; Eosinophils # (A) 0.2 k/uL (0-0.7); Eosinophils % (A) 2 %; HCT 48.7 % (39.0-53.0); Lymphocytes # (A) 1.8 k/uL (1.0-4.8); Lymphocytes % (A) 22 %; MCH 28.6 pg (25.0-35.0); MCHC 32.8 g/dL (31.0-37.0); MCV 87.2 fL (80.0-100.0); Mean Platelet Volume 7.6; Monocytes # (A) 0.5 k/uL (0-1.0); Monocytes % (A) 6 %; Neutrophils # (A) 5.7 k/uL (1.3-7.7); Neutrophils % (A) 67 %; Platelet Count 213 k/uL (150-450); RBC 5.58 m/uL (4.30-5.90); RDW 14.6 % (11.5-15.5); WBC 8.5 k/uL (3.8-10.6)
[2021-09-17 10:49] LABS: Glucose,Whole Blood 190 mg/dL (75-99)
[2021-09-17] MEDS: INSULIN ASPART (NovoLOG) 100 UNIT/ML VIAL SQ SCH ×4 (11:24→22:45)
[2021-09-17 12:17] LABS: Glucose,Whole Blood 257 mg/dL (75-99)
--- NOTE | 2021-09-17 12:25 | P.CNNES ---
History of Present Illness Consult date: 09/17/21 Requesting physician: Chip Comer Reason for Consult: cerebellar ataxia History of Present Illness: This is a 65-year-old gentleman with medical history of diabetes and hypertension who presented to the emergency department on 09/16/2021 for feeling off balance. He stated started for past 1.5 weeks but worse the past two days but denies swaying toward right or left. Denies any nausea, vomiting. Denies any other neurological issues associated with this. Denies history of stroke in past. He has diabetes for 7 years and feels it is controlled. Denies of any lower back pain. He feels today he is much better. He had CT in the ED and it is reported as cerebral atrophy and chronic small vessel ischemia. No change. I personally reviewed it and feel all his ventrilces are enlarged to atrophy size and predominately posterior lateral ventricle. I am concerned about normal pressure hydrocephalus. CBC with diff and chemistry panel is unremakable. His sugar is range of 100 to 250's. TSH: 1.490 U/A is negative for UTI. Review of Systems The 10 point of system is reviewed and the pertinent positive and negative as per HPI. Past Medical History Past Medical History: Diabetes Mellitus, Hypertension History of Any Multi-Drug Resistant Organisms: None Reported Additional Past Surgical History / Comment(s): hernia Past Psychological History: No Psychological Hx Reported Smoking Status: Current every day smoker Past Alcohol Use History: None Reported Past Drug Use History: None Reported Medications and Allergies Home Medications Medication Instructions Recorded Confirmed Type Atorvastatin Calcium [Lipitor] 20 mg PO DAILY 03/11/21 09/16/21 History Escitalopram [Lexapro] 20 mg PO DAILY 03/11/21 09/16/21 History Insulin Glargine,Hum.rec.anlog 50 unit SQ DAILY 03/11/21 09/16/21 History [Lantus Solostar Pen] Insulin Lispro [humaLOG Kwikpen] 20 unit SQ AC-TID 03/11/21 09/16/21 History Tamsulosin HCl [Flomax] 0.8 mg PO DAILY 03/11/21 09/16/21 History amLODIPine BESYLATE/BENAZEPRIL 1 cap PO DAILY 03/11/21 09/16/21 History [Lotrel 10-40 MG] buPROPion HCL [Wellbutrin SR] 150 mg PO BID 03/11/21 09/16/21 History metFORMIN HCL [Glucophage] 1,000 mg PO AC-BID 03/11/21 09/16/21 History hydrALAZINE HCL [Apresoline] 25 mg PO BID #60 tab 03/14/21 09/16/21 Rx hydroCHLOROthiazide 25 mg PO DAILY 09/16/21 09/16/21 History Allergies Allergy/AdvReac Type Severity Reaction Status Date / Time No Known Allergies Allergy Verified 09/16/21 19:28 Physical Examination - Vital Signs Vital Signs: Vital Signs Temp Pulse Pulse Pulse Pulse Resp BP 09/17/21 02:40 98.8 F 92 18 09/17/21 00:31 98.6 F 91 17 09/16/21 22:39 90 92 88 22 09/16/21 21:46 99 F 89 20 174/104 09/16/21 19:24 98.5 F 100 20 138/95 BP BP BP Pulse Ox 09/17/21 02:40 153/72 93 L 09/17/21 00:31 179/94 93 L 09/16/21 22:39 176/82 179/86 169/79 09/16/21 21:46 94 L 09/16/21 19:24 96 Intake and Output 09/16/21 09/17/21 09/17/21 22:59 06:59 14:59 Other: Voiding Method Urinal Weight 115.666 kg 115.666 kg GENERAL: The patient is lying in bed and is not in acute distress. CHEST: The heart rate is regular rate rhythm. No murmurs to auscultation. LUNG: Clear to auscultation bilaterally no wheezing noted throughout. Not labored breathing. ABDOMEN/GI: Bowel sounds present in all 4 quadrants. No tenderness to palpation throughout. NEUROLOGICAL: Higher mental function: The patient is awake, alert, oriented to self, place and time. Patient is following commands. No aphasia and no neglect. Cranial nerves: The pupils are round, equal and reactive to light and accommodation. Visual lawrence are full to confrontation throughout. Extraocular movement is intact no nystagmus is noted. Facial sensation is normal to touch throughout. The facial strength is normal throughout. Hearing is normal bilaterally to hand rub. Tongue is midline and moved [id number] without any difficulty. Acute Mild dysarthria is noted. Shoulder shrug is normal bilaterally. Motor: Gait is slightly taking small steps but not swaying towards one side or other.. The strength is 5/5 throughout. Normal tone and bulk. Cerebellum: Normal finger to nose bilaterally. Sensation: Sensation is normal to touch throughout. Reflexes (right/left): 2+ throughout except ankles are 0 bilaterally.. Plantars are downgoing bilaterally. Results - Laboratory Findings CBC and BMP: 09/17/21 06:30 09/17/21 06:49 Abnormal Lab Findings: Abnormal Labs 09/16/21 09/16/21 09/16/21 20:59 20:59 20:59 Potassium 5.2 H Glucose 107 H POC Glucose (mg/dL) Plasma Lactic Acid Polo 2.6 H* Total Bilirubin 1.6 H Urine Protein 1+ H Urine Mucus Rare H 09/16/21 09/17/21 09/17/21 22:38 02:57 06:49 Potassium 3.1 L Glucose 180 H POC Glucose (mg/dL) 100 H 222 H Plasma Lactic Acid Polo Total Bilirubin Urine Protein Urine Mucus 09/17/21 07:27 Potassium Glucose POC Glucose (mg/dL) 190 H Plasma Lactic Acid Polo Total Bilirubin Urine Protein Urine Mucus Assessment and Plan Assessment: Unsteady gait: I feel patient could have Normal pressure hydrocephalus Diabetes mellitus Hypertension Plan: MRI Brain is ordered by ED team. I ordered orthostatic vitals, HbA1c. Recommend for patient to follow-up as outpatient within 1-2 weeks with neurologist and neurosurgeon for large volume tap and if improvement recommend MUSIC MINISTER shunt by neurosurgeon. Continue neuro checks. PT and OT are consulted. Will defer the rest of medical management to the primary team. Thank you for the consultation. Juan Santoro M.D. Neuro-Hospitalist. Time with Patient: Greater than 30
--- NOTE | 2021-09-17 13:07 | HP ---
HISTORY AND PHYSICAL HISTORY OF PRESENT ILLNESS: 65-year-old white male with diabetes, hypertension, came to the emergency room feeling off-balance for the past one and a half weeks, swaying left to right. Denies any nausea, vomiting, and denies any history of stroke. He has had diabetes, controlled. Feels much better after being in the ER for overnight. CT in the ED shows chronic vessel disease, cerebral atrophy of the brain, otherwise negative. Possibly increase fluid, possible normal-pressure hydrocephalus per Neurology who has seen him also. Sugars are in the 100s-250s. TSH 1.4. UA is negative for UTI. REVIEW OF SYSTEMS: Negative. PAST MEDICAL HISTORY: Diabetes mellitus, hypertension. Current everyday smoker. No alcohol or drugs. EXAM: Home medicines: See list, reviewed. He also has diabetes, BPH, hypertension. ALLERGIES: Negative. PHYSICAL EXAMINATION: Temp 98.5, pulse is 80s to 100, respiratory 18-20, blood pressure 130s to 170s over 90- 100s. CARDIOVASCULAR S1-S2. LUNGS: Clear. HEMATOLOGY: Negative Homans. PSYCH: Fair mood and affect. OPHTHALMOLOGIC: Pupils equal, round, reactive. NEUROLOGIC as mentioned above. Sensation and cerebellar exam was normal. reflexes. Plantar reflexes were down. Sugars 100-220. We will do a hemoglobin A1c on him. We will have to hold metformin until we do some tests with dyes. IMPRESSION: 1. Possibly normal-pressure hydrocephalus. 2. Diabetes mellitus. 3. Hypertension versus stroke. MRI of the brain has been ordered. changes, A1c. We are going to do an outpatient tap of fluid with improvement with a NETWORK SECURITY OFFICER shunt as an outpatient. Await for further MRI report before we discharge him. Accu-Chek protocol. Hold metformin. MMODL / IJN: [id number] /
[2021-09-17 17:43] LABS: Glucose,Whole Blood 204 mg/dL (75-99)
[2021-09-17] MEDS: buPROPion SR 150 MG TABLET.ER PO SCH (21:03)
[2021-09-17 21:27] LABS: Glucose,Whole Blood 243 mg/dL (75-99)
[2021-09-18 02:39] LABS: Glucose,Whole Blood 160 mg/dL (75-99)
[2021-09-18 07:28] LABS: Glucose,Whole Blood 186 mg/dL (75-99)
[2021-09-18] MEDS: INSULIN ASPART (NovoLOG) 100 UNIT/ML VIAL SQ SCH ×3 (08:21→17:41)
[2021-09-18] MEDS: hydrALAZINE HCL 25 MG TAB PO SCH ×2 (08:22→08:23)
[2021-09-18] MEDS: hydroCHLOROthiazide 25 MG TAB PO SCH (08:22)
[2021-09-18] MEDS: buPROPion SR 150 MG TABLET.ER PO SCH (08:23)
[2021-09-18] MEDS ORDERED: lisinopriL 20 MG TAB PO SCH (09:00)
[2021-09-18] MEDS ORDERED: ESCITALOPRAM 20 MG TAB PO SCH (09:00)
[2021-09-18] MEDS ORDERED: INSULIN DETEMIR (LEVEMIR) 100 UNIT/ML SYR SQ SCH (09:00)
[2021-09-18] MEDS ORDERED: ATORVASTATIN 20 MG TAB PO SCH (09:00)
[2021-09-18] MEDS ORDERED: amLODIPine 10 MG TAB PO SCH (09:00)
[2021-09-18] MEDS ORDERED: TAMSULOSIN 0.4 MG CAP.ER.24H PO SCH (09:00)
[2021-09-18 11:37] LABS: Glucose,Whole Blood 223 mg/dL (75-99)
[2021-09-18 12:32] VITALS: RESP 16; TEMP 98
[2021-09-18] MEDS ORDERED: CYANOCOBALAMIN 1,000 MCG/ML 1 ML VIAL IM SCH (14:15)
--- NOTE | 2021-09-18 14:36 | P.PN ---
Subjective Progress Note Date: 09/18/21 The patient is seen at beside and states he is doing about the same as yesterday. He stated he has been having urinary incontinence since 04/2021 and has been having unsteady gait for past possibly 2 weeks. Denies feeling confused. Objective - Vital Signs Vital signs: Vital Signs Temp 98.0 F 09/18/21 12:31 Pulse 85 09/18/21 13:59 Resp 16 09/18/21 13:59 BP 136/82 09/18/21 12:31 Pulse Ox 97 09/18/21 12:31 Intake & Output 09/17/21 09/18/21 09/18/21 18:59 06:59 18:59 Intake Total 354 518 Balance 354 518 Intake: Oral 354 518 Other: Voiding Method Urinal Urinal Urinal # Voids 4 3 4 - Exam GENERAL: The patient is lying in bed and is not in acute distress. NEUROLOGICAL: Higher mental function: The patient is awake, alert, oriented to self, place and time. Patient is following commands. No aphasia and no neglect. Cranial nerves: The pupils are round, equal and reactive to light and accommodation. Visual lawrence are full to confrontation throughout. Extraocular movement is intact no nystagmus is noted. Facial sensation is normal to touch throughout. The facial strength is normal throughout. Hearing is normal b ilaterally to hand rub. Tongue is midline and moved [id number] without any difficulty. Acute Mild dysarthria is noted. Shoulder shrug is normal bilaterally. Motor: Gait is deferred.. The strength is 5/5 throughout. Normal tone and bulk. Cerebellum: Normal finger to nose bilaterally. Sensation: Sensation is normal to touch throughout. Reflexes (right/left): 2+ throughout except ankles are 0 bilaterally.. Plantars are downgoing bilaterally. SOME OF THE WORK-UP: Orthostatic vitals is supine blood pressure of 160/94 with a heart rate of 85, sitting is 148/86 with a heart rate of 92 and standing is 177/89 with a heart rate of 95. He had CT in the ED and it is reported as cerebral atrophy and chronic small vessel ischemia. No change. I personally reviewed it and feel all his ventrilces are enlarged to atrophy size and predominately posterior lateral ventricle. I am concerned about normal pressure hydrocephalus. HbA1c: 8.6 Vitamin B12: 298 (normal is 200-944) Serum folate: 9.70. CBC with diff and chemistry panel is unremakable. His sugar is range of 100 to 250's. TSH: 1.490 U/A is negative for UTI. - Labs CBC & Chem 7: 09/17/21 06:30 09/17/21 06:49 Labs: Abnormal Lab Results - Last 24 Hours (Table) 09/17/21 09/17/21 09/17/21 Range/Units 06:49 17:41 21:26 POC Glucose (mg/dL) 204 H 243 H (75-99) mg/dL Hemoglobin A1c 8.6 H (0.0-6.0) % 09/18/21 09/18/21 09/18/21 Range/Units 02:37 07:27 11:36 POC Glucose (mg/dL) 160 H 186 H 223 H (75-99) mg/dL Hemoglobin A1c (0.0-6.0) % Microbiology - Last 24 Hours (Table) 09/16/21 20:50 Blood Culture - Preliminary Blood No Growth after 24 hours Assessment and Plan Assessment: Unsteady gait for past two week and urinary incontinence since 04/2021: Seems suspicious for Normal pressure hydrocephalus (clinically and imaging) His unsteady could be exacerbated due to his uncontrolled diabetes that can give diabetic neuropathy and low normal vitamin B12 Low normal vitamin B12 (200). Diabetes mellitus uncontrolled (HbA1c: 8.6) Hypertension Plan: MRI Brain is ordered by ED team. Recommend for patient to follow-up as outpatient within 1-2 weeks with neurologist and neurosurgeon for large volume tap and if improvement recommend SHIP JOINER shunt by neurosurgeon. Regarding Vitamin B12: 298 (normal is 200-944), I started the patient on Vitamin B12 1000mcg IM for 3 days and after that PO daily. Recommend repeating Orthostatic again and if positive recommend management per primary team or possibly cardiology. Consider compression stocking. Continue neuro checks. PT and OT are consulted. Will defer the rest of medical management to the primary team. The patient is discussed with the patient and his nurse. Juan Santoro M.D. Neuro-Hospitalist. Time with Patient: Less than 30
[2021-09-18 15:29] VITALS: BP 111/74; PULSE 77
[2021-09-18 16:48] LABS: Glucose,Whole Blood 246 mg/dL (75-99)
--- NOTE | 2021-09-18 16:58 | MR ---
EXAMINATION TYPE: MR brain wo con DATE OF EXAM: 09/18/2021 COMPARISON: None HISTORY: Cerebellar ataxia. Multiplanar multiecho imaging of the brain without contrast. Diffusion images show no evidence of an acute infarct. There is cerebral cortical atrophy. There is s ome enlargement of the ventricles. There is mild thinning of the corpus callosum. There is coalescent increased signal in the periventricular white matter that measures up to 1 cm in thickness. There is also some patchy increased signal that measures 2 x 1 cm in the central jocelyne. This is more on the le ft side. The cerebellum is intact. No evidence of posterior fossa mass. There is increased signal in the right mastoid sinus. Sella turcica is intact. There is no evidence of orbital mass. IMPRESSION: Extensive white matter changes likely related to chronic microvascular ischemia. Demyelinating diseas e is not excluded. Cerebral atrophy and mild hydrocephalus. No acute infarct. Right-sided mastoiditis .
[2021-09-21] MEDS ORDERED: CYANOCOBALAMIN 500 MCG TAB PO SCH (09:00)
== END 2021-09-18 18:22 | disposition home health service (06) ==
LOC: EC 18:27 → 6NMEDSUR 23:16
PROVIDERS: ADMIT Family Medicine; ATTEND Family Medicine
DX: R26.81 Unsteadiness on feet (principal); R42 Dizziness and giddiness; E11.65 Type 2 diabetes mellitus with hyperglycemia; I10 Essential (primary) hypertension; E11.40 Type 2 diabetes mellitus with diabetic neuropathy, unspecified; F17.200 Nicotine dependence, unspecified, uncomplicated; G31.89 Other specified degenerative diseases of nervous system; N40.0 Benign prostatic hyperplasia without lower urinary tract symptoms; R32 Unspecified urinary incontinence; I45.10 Unspecified right bundle-branch block; E66.9 Obesity, unspecified; Z68.39 Body mass index [BMI] 39.0-39.9, adult; Z79.84 Long term (current) use of oral hypoglycemic drugs; Z79.899 Other long term (current) drug therapy; Z79.4 Long term (current) use of insulin; Z20.822 Contact with and (suspected) exposure to COVID-19; Z87.440 Personal history of urinary (tract) infections
CPT/HCPCS: 99285; 96372; 96360; 36415; 93005; 97162; 80053 ×2; 84443; 82607; 82746; 83605; 83735; 84100; 84484; 85025 ×2; 81001; 87040; 83036; 87635; 74022; 70450; 70551; G0378 ×3; J3420; S0106 ×2

== ENCOUNTER 2022-01-30 09:07 | Emergency (ER) | payer MEDICARE, OTHER ==
[2022-01-30 09:38] VITALS: PULSE 70
--- NOTE | 2022-01-30 10:41 | ED ---
Eye Problem HPI - General Chief complaint: Eye Problems Stated complaint: Swollen retina, sent by eye DR Source: patient, RN notes reviewed Mode of arrival: ambulatory Limitations: no limitations - History of Present Illness Initial comments: This a 66-year-old male presents emergency department to complaint of eye injury. Patient states she had recent cataract surgery did see curbstone setter Dr. Veloz in which patient was placed on a steroid advise have CT face secondary to swollen or red, redness. Patient states symptoms are improved today. Patient states that he does feel better he claims he was in the face by a goose. Patient denies any other associated complaints no headache no dizziness. - Related Data Home Medications Medication Instructions Recorded Confirmed Atorvastatin Calcium [Lipitor] 20 mg PO HS 03/11/21 01/16/22 Escitalopram [Lexapro] 20 mg PO DAILY 03/11/21 01/16/22 Insulin Glargine,Hum.rec.anlog 40 unit SQ HS 03/11/21 01/16/22 [Lantus Solostar Pen] Insulin Lispro [humaLOG Kwikpen] 20 unit SQ AC-TID 03/11/21 01/16/22 Tamsulosin HCl [Flomax] 0.4 mg PO DAILY 03/11/21 01/16/22 metFORMIN HCL [Glucophage] 500 mg PO DAILY 03/11/21 01/16/22 hydroCHLOROthiazide 25 mg PO DAILY 09/16/21 01/16/22 Aspirin 81 mg PO DAILY 01/15/22 01/16/22 Cyanocobalamin [Vitamin B-12] 5,000 mcg PO DAILY 01/15/22 01/16/22 Ibuprofen [Motrin Ib] 400 - 600 mg PO Q6H PRN 01/15/22 01/16/22 hydrALAZINE HCL [Apresoline] 100 mg PO BID 01/15/22 01/16/22 Allergies Allergy/AdvReac Type Severity Reaction Status Date / Time No Known Allergies Allergy Verified 01/30/22 09:37 Review of Systems ROS Statement: Those systems with pertinent positive or pertinent negative responses have been documented in the HPI. ROS Other: All systems not noted in ROS Statement are negative. Past Medical History Past Medical History: Diabetes Mellitus, Eye Disorder, Hypertension, Sleep Apnea/CPAP/BIPAP Additional Past Medical History / Comment(s): lipitor , cataracts, sleep apnea - recent has cpap doesnt use. UTI- hospitalized 04/15 History of Any Multi-Drug Resistant Organisms: None Reported Past Surgical History: Hernia Repair Additional Past Surgical History / Comment(s): hernia umbilical Past Anesthesia/Blood Transfusion Reactions: No Reported Reaction Past Psychological History: Anxiety, Depression Smoking Status: Current every day smoker - Past Family History Father Family Medical History: Diabetes Mellitus Mother Family Medical History: No Reported History General Exam Limitations: no limitations General appearance: alert, in no apparent distress Head exam: Present: atraumatic, normocephalic, normal inspection Eye exam: Present: normal appearance, PERRL, EOMI. Absent: scleral icterus, conjunctival injection, periorbital swelling ENT exam: Present: normal exam, mucous membranes moist Neck exam: Present: normal inspection, full ROM. Absent: tenderness, meningismus, lymphadenopathy Respiratory exam: Present: normal lung sounds bilaterally. Absent: respiratory distress, wheezes, rales, rhonchi, stridor Cardiovascular Exam: Present: regular rate, normal rhythm, normal heart sounds. Absent: systolic murmur, diastolic murmur, rubs, gallop, clicks Neurological exam: Present: alert Skin exam: Present: warm, dry, intact, normal color. Absent: rash Course Vital Signs 01/30/22 09:35 Temperature 98.5 F Pulse Rate 70 Respiratory 22 Rate Blood Pressure 188/93 O2 Sat by Pulse 94 L Oximetry Medical Decision Making - Medical Decision Making Patient had CT which unremarkable. Patient is being closely followed by o phthalmologist is currently on steroids per curbstone setter. Patient discharged in stable condition return parameters discussed. Disposition Clinical Impression: Eye injury, Facial contusion Disposition: HOME SELF-CARE Condition: Stable Additional Instructions: Please return to the Emergency Department if symptoms worsen or any other concerns. Is patient prescribed a controlled substance at d/c from ED?: No Referrals: Matt Urbano MD [Primary Care Provider] - 1-2 days Time of Disposition: 12:08
[2022-01-30 12:24] VITALS: BP 147/89; RESP 18; TEMP 98.1
--- NOTE | 2022-01-31 22:12 | CT ---
EXAMINATION TYPE: CT brain wo con, CT facial bones wo con DATE OF EXAM: 01/30/2022 HISTORY: Injury with headache and facial pain. Left eye swelling. History of recent cataract surgery. CT DLP: 1132 mGycm. Automated Exposure Control for Dose Reduction was Utilized. TECHNIQUE: CT scan of the head and facial bones are performed without contrast. COMPARISON: Prior CT brain September 16, 2021. FINDINGS: There is no acute intracranial hemorrhage or midline shift identified. There is mild diff use sulcal prominence consistent with mild diffuse age-related cerebral atrophy redemonstrated. Sligh tly more prominence of the ventricles relative to degree of sulcal effacement but ventricular size un changed from prior study. There is moderate low-attenuation in the deep and periventricular white mat ter consistent with chronic small vessel ischemic change. The calvarium is intact. Left lens is not identified correlates with history of recent cataract surgery. Intraconal fat is pr eserved bilaterally. Orbital floors and palmer are intact. Zygomatic arches are intact. Nasal bones ar e intact. The maxilla is intact. Pterygoid plates are intact. Temporomandibular joints are maintained bilaterally. Visualized portion of the mandible is unremarkable. Visualized paranasal sinuses are gr ossly clear. IMPRESSION: 1. No acute intracranial hemorrhage or midline shift. There is mild diffuse age-related cerebral atr ophy and moderate chronic small vessel ischemic change redemonstrated. Mild generalized hydrocephalu s redemonstrated. No significant change from prior CT. 2. No acute displaced facial bone fracture. Preliminary report provided by on site radiologist.
== END 2022-01-30 12:24 | disposition home or self-care (01) ==
LOC: EC 09:07
DX: S00.83XA Contusion of other part of head, initial encounter (principal); E11.9 Type 2 diabetes mellitus without complications; F17.200 Nicotine dependence, unspecified, uncomplicated; I10 Essential (primary) hypertension; X58.XXXA Exposure to other specified factors, initial encounter
CPT/HCPCS: 70450; 70486; 99282

== ENCOUNTER 2022-02-06 06:29 | Day surgery (SDC) | payer MEDICARE, OTHER ==
[~2022-02-06 06:29] MED LIST: LACTATED RINGERS 1,000 ML IV SCH; MOXIFLOXACIN HCL 0.5% DROPS 3 ML BTL OP PRN; TETRACAINE 0.5% OPHTH (PF) DROPS 4 ML BTL OP PRN; TIMOLOL 0.5% OPHTH DROPS 5 ML BTL OP PRN
[2022-02-06] MEDS: CYCLOPENTOLATE 1% OPHTH SOLN 2 ML BTL OP PRN ×3 (07:05→07:20)
[2022-02-06] MEDS: PHENYLEPHRINE 2.5% OPHTH DRP 2ML OP PRN ×3 (07:08→07:23)
[2022-02-06] MEDS ORDERED: LIDOCAINE 1% (10MG/ML) FOR IV START INTRADERMA ONE (07:10)
[2022-02-06 07:19] LABS: Glucose,Whole Blood 151 mg/dL (70-110)
[2022-02-06 07:28] VITALS: TEMP 97.9
[2022-02-06] MEDS ORDERED: MIDAZOLAM 2 MG/2 ML VIAL ONE (07:33)
[2022-02-06] MEDS ORDERED: fentaNYL (PF) 50 MCG/ML 2 ML AMP ONE (07:33)
[2022-02-06] MEDS ORDERED: EPINEPHrine (PF) 0.3 ML in BALANCED SALT IRRIG SOLN COMB2 500 ML IRRIGATION ONE (07:42)
[2022-02-06] MEDS ORDERED: BALANCED SALT IRRIG SOLN COMB2 15 ML IRRIG.SOLN INTRAOCULA ONE (07:43)
[2022-02-06] MEDS ORDERED: LIDOCAINE 1% (PF) 10MG/ML VIAL MISCELLANE ONE (07:43)
[2022-02-06] MEDS ORDERED: DUOVISC KIT (GREEN BOX) INTRAOCULA ONE (07:43)
--- NOTE | 2022-02-06 08:08 | P.OP ---
Date of Procedure: 02/06/22 Preoperative Diagnosis: NS & cS & PSC Postoperative Diagnosis: same Procedure(s) Performed: PIOL< OD Implants: [id number] 18.50 Anesthesia: MAC Surgeon: Sekou Valdivia Pathology: none sent Condition: stable Disposition: same day Indications for Procedure: blurry vision Operative Findings: no complications
[2022-02-06 08:31] LABS: Glucose,Whole Blood 148 mg/dL (70-110)
[2022-02-06 08:36] VITALS: BP 130/80; PULSE 74; RESP 18
--- NOTE | 2022-02-07 01:53 | OP ---
OPERATIVE REPORT PROCEDURE PERFORMED: Phacoemulsification of cataract and intraocular lens implant of the right eye. PREOPERATIVE DIAGNOSES: Nuclear sclerosis, cortical sclerosis and posterior subcapsular cataract. 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 ANESTHESIA: Topical. ESTIMATED BLOOD LOSS: None. SPECIMEN TAKEN: None. NARRATIVE: After obtaining the appropriate consent, the patient was brought to the operating room. There he was placed on a cardiac monitoring, prepped and draped in the usual sterile manner. He was approached from his right temporal side and at the 11 o'clock position. An MVR blade was used to create a paracentesis port. Through this opening, 1% Xylocaine MPF 50:50 mix with balanced salt solution was injected into the anterior chamber. This was followed by injection of 1:1000 epinephrine MPF, 50:50 mix with balanced salt solution. There was a mild improvement in pupillary dilation appreciated with this, but the stroma of the iris did still continue to have poor tone. Viscoat was then used to stabilize the anterior chamber and at the 9 o'clock position, a 2.5 mm keratome was used to create a self-sealing corneal flap incision. Due to the patient's previous history of Flomax usage and the poor response to the epinephrine, a 7-mm Malyugin ring was inserted on the pupillary sphincter without difficulty. This was followed by a cystotome which was used to start a continuous tear capsulorrhexis which was then completed using the Utrata forceps. Hydrodissection and hydrodelineation of the lens were accomplished with balanced salt solution. Phacoemulsification of the lens utilizing phaco chop was accomplished in 25.62 seconds at 16% power. This was followed by instillation of additional Xylocaine MPF and removal of the remaining cortical cataract in and around the capsular bag under irrigation and aspiration. Careful polishing of the posterior capsule was accomplished in the capsule vacuum mode. Provisc was then used to stabilize the capsular bag and a [employer] MX60E 18.5 diopter posterior chamber intraocular lens was then inserted into the capsular bag without difficulty. The remaining viscoelastic was then removed from in and around the intraocular lens and prior to removal of all remaining viscoelastic, the Malyugin ring was disinserted from the pupillary sphincter and removed from the anterior chamber of the iris. This was followed by further cleanup of the remaining viscoelastic within the anterior chamber. The patient's eye was then filled with balanced salt solution and the wounds were confirmed watertight. He then received 2 drops of 0.5% moxifloxacin, 0.5% timolol and then was lightly patched and shielded in the usual manner. There were no complications from the procedure. He tolerated the procedure well and was returned to outpatient recovery in good condition. MMJAMES / IJN: [id number] /
== END 2022-02-06 09:05 | disposition home or self-care (01) ==
LOC: OR 06:29
PROVIDERS: ATTEND Ophthalmology
DX: H25.811 Combined forms of age-related cataract, right eye (principal); E11.9 Type 2 diabetes mellitus without complications; I10 Essential (primary) hypertension; F32.9 Major depressive disorder, single episode, unspecified; R51.9 Headache, unspecified; H04.209 Unspecified epiphora, unspecified side; H53.8 Other visual disturbances; F17.210 Nicotine dependence, cigarettes, uncomplicated; H52.4 Presbyopia; H52.13 Myopia, bilateral; Z79.4 Long term (current) use of insulin; Z96.49 Presence of other endocrine implants; Z96.1 Presence of intraocular lens; Z79.899 Other long term (current) drug therapy; Z79.84 Long term (current) use of oral hypoglycemic drugs; Z79.891 Long term (current) use of opiate analgesic
CPT/HCPCS: 66984; C1780; J2250; J0171; J3010; J2001

== ENCOUNTER → 2022-10-29 | Outpatient (CLI) | payer MEDICARE, OTHER ==
--- NOTE | 2022-10-29 11:02 | US ---
EXAMINATION TYPE: US prostate transrectal DATE OF EXAM: 10/29/2022 COMPARISON: NONE CLINICAL INDICATION: Male, 67 years old with history of R97.2 ELEV PSA; Patient states having a histo ry of enlarged prostate. Elevated PSA level. This examination was performed using the transrectal probe. EXAM MEASUREMENTS: Gland Size: 7.4 x 6.9 x 6.4 cm Volume: 169 ml Predicted PSA: 20.3 Actual PSA (if available): 11.8 Seminal vesicles not visualized on todays exam, obscured by bowel gas. Nonvascular echogenic lesion seen right base = 1.6 x 0.9 x 1.1 cm IMPRESSION: 1. Severe Prostatic glandular enlargement. 2. Echogenic lesion at the right base. Consider tissue diagnosis versus further evaluation with MRI. Predicted PSA = volume x 0.12 ng/ml Calculated Volume = 0.5236 x L x W x H
== END | disposition home or self-care (01) ==
LOC: RADUSWWP 09:38
PROVIDERS: ATTEND Family Medicine
DX: N40.0 Benign prostatic hyperplasia without lower urinary tract symptoms (principal); R97.20 Elevated prostate specific antigen [PSA]
CPT/HCPCS: 76872

== ENCOUNTER 2022-12-02 07:50 | Day surgery (SDC) | payer MEDICARE ==
[2022-12-02] MEDS ORDERED: LIDOCAINE 2% URO-JET JELLY 5 ML KIT URETHRAL ONE (10:00)
[2022-12-02 10:41] VITALS: RESP 18; TEMP 98.3
--- NOTE | 2022-12-02 12:39 | US ---
Ultrasound-guided transrectal biopsy of the prostate gland. HISTORY: Elevated PSA. Informed consent was obtained and all the patient's questions were answered. Topical Xylocaine gel w as applied to the probe. The prostate gland was localized sonographically and 12 total samples were obtained with 2 samples obtained from each site. An 18-gauge biopsy device was utilized. Sites incl ude right base, left base, right mid gland, left mid gland, right apex and left apex. Samples were s ent to pathology further evaluation. The patient was monitored following the biopsy for approximatel y one hour. At the time of discharge patient's urine was clear and vitals were stable. IMPRESSION: Successful ultrasound guided core biopsy of the prostate gland. Pathology results are pe nding.
[2022-12-02 17:02] VITALS: BP 135/68; PULSE 70
== END 2022-12-02 12:00 | disposition home or self-care (01) ==
LOC: RADPROMAIN 07:50
PROVIDERS: ATTEND Family Medicine
DX: C61 Malignant neoplasm of prostate (principal)
CPT/HCPCS: 36415; 55700; 88305

== ENCOUNTER → 2022-12-03 | Outpatient (CLI) | payer MEDICARE ==
--- NOTE | 2022-12-03 16:21 | US ---
EXAMINATION TYPE: US kidneys/renal and bladder DATE OF EXAM: 12/03/2022 COMPARISON: NONE CLINICAL INDICATION: Male, 67 years old with history of N13.30 HYDRONEPHROSIS; Enlarged prostate per patient. EXAM MEASUREMENTS: Right Kidney: 11.8 x 6.6 x 5.3 cm Left Kidney: 13.8 x 5.4 x 6.5 cm Right Kidney: No hydronephrosis or masses seen Left Kidney: No hydronephrosis or masses seen Bladder: Distended, anechoic. Prominent prostate seen. Left Jet seen There is no evidence for hydronephrosis at this point in time. No nephrolithiasis is seen. No sebastien s are identified. The urinary bladder is anechoic. Bilateral ureteral jets are seen. IMPRESSION: 1. No evidence of obstructive uropathy. 2. The prostate gland appears prominent to enlarged. Correlate with serum PSA.
== END | disposition home or self-care (01) ==
LOC: RADUSWWP 14:25
PROVIDERS: ATTEND Family Medicine
DX: N40.0 Benign prostatic hyperplasia without lower urinary tract symptoms (principal); N13.30 Unspecified hydronephrosis; R97.21 Rising PSA following treatment for malignant neoplasm of prostate
CPT/HCPCS: 76770

== ENCOUNTER → 2022-12-31 | Outpatient (CLI) | payer MEDICARE ==
--- NOTE | 2022-12-31 16:20 | NM ---
EXAMINATION TYPE: NM bone scan whole body DATE OF EXAM: 12/31/2022 3:54 PM CLINICAL INDICATION:Male, 67 years old with history of C61 prostate ca; COMPARISON: None TECHNIQUE: Intravenous administration 23.4 mCi Tc 99m MDP followed by multiple scintigraphic images o f the appendicular and axial skeleton. Small [id number]-[id number] thorax images were obtained. Images acquired 3 hours post injection. FINDINGS: No abnormal uptake is identified within the appendicular or axial skeleton to suggest metastatic dise ase. There is increased uptake within the bilateral shoulder, sternoclavicular, and sacroiliac joints con sistent with degenerative changes. No other photopenic areas or areas of increased activity are ident ified. Physiologic radiotracer activity is demonstrated in the kidneys and bladder. IMPRESSION: Nothing to suggest metastatic disease.
== END | disposition home or self-care (01) ==
LOC: RADNMMAIN 10:02
PROVIDERS: ATTEND Urology
DX: C61 Malignant neoplasm of prostate (principal)
CPT/HCPCS: 78306; A9503

== ENCOUNTER → 2023-01-03 | Outpatient (CLI) | payer MEDICARE ==
--- NOTE | 2023-01-05 16:03 | MR ---
EXAMINATION TYPE: MR Prostate wo/w con DATE OF EXAM: 01/03/2023 10:12 AM COMPARISON: Prostate biopsy 12/02/2022, ultrasound 10/29/2022. CLINICAL INDICATION:Male, 67 years old with history of C61 prostate ca; TECHNIQUE: Multi-planar, multi-sequence imaging of the pelvis is performed prior to and following the uncomplicated administration of bolus intravenous gadolinium. CONTRAST: 11ml Gadavist Interpretive Criteria: PI-RADS v2.1 SERUM PSA: 5.4 on 08/12/2022. (fax is hard to read) 11.8 on 05/11/2021. SURGICAL PATHOLOGY: Biopsy 12/02/2022 which was positive right base [place] 8. FINDINGS: Prostatic dimensions: 6.7 x 8.1 x 5.7 cm. Ellipsoid Volume:161.97 (PSA density=0.03 ng/mL/mL) CENTRAL GLAND (Central and Transition Zones/CZ+TZ): Multiple bilateral, heterogenous appearing hypertrophic stromal nodules, without suspicious lesion. M edian lobe hypertrophy with protrusion into the base of the bladder. (PI-RADS 2) PERIPHERAL ZONE (PZ): Bilateral linear, indistinct wedgelike areas of low ADC, and low T2 signal, No evidence of masslike a bnormality, or localized perfusional hypervascularity, to further suggest a focus of clinically signi ficant prostate cancer. (PI-RADS 2) SEMINAL VESICLES (SV): Symmetric and unremarkable. PERIPROSTATIC TISSUES: Unremarkable. LYMPH NODES: No enlarged pelvic lymph node. REMAINING PELVIS: Bladder wall is within normal limits given distention. No abnormal free or organized intrapelvic fluid collection. No pathologic bowel dilation or mural thickening. Bilateral fatty changes to the inguinal canals. Small left hydrocele partially visualized. OSSEOUS STRUCTURES: No suspicious osseous abnormality. IMPRESSION: 1. No specific features for high-risk prostate cancer. Maximum PI-RADS score: 2. 2. Substantial BPH, estimated gland volume 161.97 mL.
== END | disposition home or self-care (01) ==
LOC: RADMRIMAIN 08:39
PROVIDERS: ATTEND Urology
DX: C61 Malignant neoplasm of prostate (principal); N40.0 Benign prostatic hyperplasia without lower urinary tract symptoms
CPT/HCPCS: 72197; A9585

== ENCOUNTER → 2023-04-22 | Outpatient (CLI) | payer MEDICARE ==
[~2023-04-22] MED LIST changes: -LACTATED RINGERS 1,000 ML IV SCH; -MOXIFLOXACIN HCL 0.5% DROPS 3 ML BTL OP PRN; +REGADENOSON 0.4 MG/5 ML SYRINGE IV ONE; -TETRACAINE 0.5% OPHTH (PF) DROPS 4 ML BTL OP PRN; -TIMOLOL 0.5% OPHTH DROPS 5 ML BTL OP PRN
--- NOTE | 2023-04-22 11:53 | CA ---
Lexiscan Nuclear Stress Test Report Name: Julián Greer Exam Date: 04/22/2023 09:43 Exam Location: [facility] Ht (in): 68 Wt (lb): 248 BSA: 2.24 Ordering Phys: Garry Bal MD Referring Phys: GARRY BAL,, Technologist: Steffen Burch Age: 67 Gender: M : 1955 Procedure CPT: Indications: R94.31 ABNORMAL EKG ICD-10 Codes: Patient History: Medications: SEE LIST Meds past 24 hrs: Pretest Chest Pain: STRESS TEST Lexiscan Protocol Exercise Duration (min:sec): 02:[address] Depressions (mm): Angina Score: Wagner Score: Resting HR (bpm): 78 Peak HR (bpm): 83 Resting BP (mmHg): 162 / 99 Peak BP (mmHg): 156 / 86 MPHR: 154 Target HR: 131 % MPHR: 54 METS: 1.0 Total Dose: Peak Dose: Atropine: Double Product: 66922 BP Response: Stress Termination: PROTOCOL COMPLETE Stress Symptoms: NO SYMPTOMS Stress Summary: ECG ANALYSIS Resting ECG: Normal sinus rhythm with right bundle branch block Stress ECG: No ST segment depression CONCLUSIONS Inconclusive EKG part of the stress test Cardiolite portion of the stress test will be reported separately Dr. Slick Mcclelland MD (Electronically Signed) Final Date: 22 April 2023 11:52
--- NOTE | 2023-04-22 13:20 | NM ---
EXAMINATION TYPE: NM stress lexiscan cardiolite DATE OF EXAM: 04/22/2023 COMPARISON: NONE CLINICAL INDICATION: Male, 67 years old with history of R94.31 abnormal EKG; TECHNIQUE: After the intravenous administration of 9.71 mCi Tc 99m Sestamibi - Cardiolite resting SP ECT images acquired 45 minutes post injection. The patient received 0.4mg Lexiscan, 26.3 mCi Tc 99m Sestamibi - Stress images obtained [address] injection FINDINGS: Review of stress and rest SPECT images demonstrates reduced uptake involving the apical inferior wall s myocardium.. Gated analysis shows normal wall motion with an estimated left ventricular ejection f raction of 64 %. IMPRESSION: No scintigraphic evidence for reversible ischemia. Fixed defect involving the apex and inferior wall myocardium.
== END | disposition home or self-care (01) ==
LOC: RADNMMAIN 04-16 08:07
PROVIDERS: ATTEND Family Medicine
DX: R94.31 Abnormal electrocardiogram [ECG] [EKG] (principal)
CPT/HCPCS: 93017; 78452; A9500; J2785